=== PATIENT | female | born 1985 | race Caucasian/White ===

== ENCOUNTER 2019-02-04 11:27 | Inpatient (IN) | payer MEDICAID ==
[~2019-02-04] VITALS: Ht 162.6 cm; Wt 75.0 kg
[2019-02-04] VITALS (25 sets, daily range): BP systolic 67–127; BP diastolic 48–101; PULSE 94–144; RESP 20–26; Ht 162.6 cm; Wt 75.0 kg
[~2019-02-04 11:27] MED LIST: DENIES MEDS
[2019-02-04] MEDS ORDERED: CEFTRIAXONE 1 GM/50 ML (PMX) 50 ML IVPB STA (11:40)
[2019-02-04] MEDS ORDERED: SOD CHLORIDE 0.9% 1,000 ML IV STA ×2 (11:40)
[2019-02-04] MEDS ORDERED: NORepinephrine 8MG/250 ML (PMX 250 ML ONE (11:41)
[2019-02-04] MEDS: NORepinephrine 8MG/250 ML (PMX 250 ML IV SCH ×2 (11:50→18:04)
[2019-02-04] MEDS ORDERED: METH-480 PO (12:08)
--- NOTE | 2019-02-04 13:23 | ERD ---
ER Documentation Chief Complaint Chief Complaint Rosc after 1 amp of epi HPI This is a 33-year-old woman brought in by EMS from home for cardiac arrest, initial rhythm at the scene was pulseless electrical activity. EMS administered epinephrine and chest compressions at the scene and in route and she eventually gained pulses, a Alex airway was placed to help with breathing. Patient was taking a nap in bed with her sister for about 1 hour, her sister rolled over and saw the patient seizing and frothing at the mouth. Patient does not have a history of seizure disorder. Patient's sister who was later at the bedside states for the last 3 days she has been complaining of a posterior headache which was constant lasting all day and it gradually became worse over the last 3 days, she required 3 doses of [id number] Tylenol last night and 2 doses this morning to help with her headache. Patient has no history of cerebral aneurysm, seizures, or migraines. Patient had no complaints of chest pain or shortness of breath, has had no recent vomiting or diarrhea, no loss of bowel or bladder contents. ROS All systems reviewed and are negative except as per history of present illness. Medications Home Meds Reported Medications Methyldopa* (Aldomet*) 500 Mg Tab, 500 MG PO TID, #90 TAB 02/04/19 Discontinued Reported Medications [Denies Meds] No Conflict Check 07/05/10 Allergies Allergies: Coded Allergies: No Known Allergy (Verified , 02/04/19) PMhx/Soc History of Surgery: Yes (1X C SECTION from previous visit) Anesthesia Reaction: No Hx Neurological Disorder: No Hx Respiratory Disorders: No Hx Cardiac Disorders: No Hx Psychiatric Problems: No Hx Miscellaneous Medical Probl: No Hx Alcohol Use: No (unknown) Hx Substance Use: No (unknown) Hx Tobacco Use: No (unknown) Smoking Status: Unknown if ever smoked FmHx Family History: No diabetes Physical Exam Vitals Vital Signs Date Temp Pulse Resp B/P (MAP) Pulse Ox O2 O2 Flow FiO2 Time Delivery Rate 02/04/19 123 23 100 100 12:51 02/04/19 90 16 99 100 11:44 Physical Exam Const: Unresponsive, well-developed well-nourished, nonverbal, afebrile HEENT: Normocephalic atraumatic, no goiter, pink conjunctiva, no cervical spine deformity Resp: Clear to auscultation bilaterally Cardio: Tachycardic and regular Abd: Soft, non tender, non distended. No masses palpated, no rigidity Skin: No petechiae or rashes. No skin ulcers, no lacerations, no hematomas Back: No midline or flank tenderness Ext: No cyanosis, or edema. Calves are symmetrical Neur: Patient is unresponsive and nonverbal, right pupil measures 6 mm and unreactive, left pupil 4 mm and unreactive. Psych: Unable to assess Result Diagram: 02/04/19 1137 02/04/19 1137 Results 24 hrs Laboratory Tests Test 02/04/19 11:37 02/04/19 11:39 02/04/19 11:40 02/04/19 11:42 White Blood 15.9 10^3/ul Count Red Blood Count 5.23 10^6/ul Hemoglobin 15.4 g/dl Hematocrit 50.1 % Mean Corpuscular 95.8 fl Volume Mean Corpuscular 29.4 pg Hemoglobin Mean Corpuscular 30.7 g/dl Hemoglobin Linda nt Red Cell 13.4 % Distribution Width Platelet Count 274 10^3/UL Mean Platelet 11.3 fl Volume Immature 9.500 % Granulocytes % Neutrophils % % Lymphocytes % % Monocytes % % Eosinophils % % Basophils % % Nucleated Red 0.1 /100WBC Blood Cells % Immature 1.500 10^3/ul Granulocytes # Neutrophils # 10^3/ul Lymphocytes # 10^3/ul Monocytes # 10^3/ul Eosinophils # 10^3/ul Basophils # 10^3/ul Nucleated Red 10^3/ul Blood Cells # Prothrombin Time 17.3 Sec Prothrombin Time 1.4 Ratio INR 1.40 International Normalized Ratio Activated 50.7 Sec Partial Thrombop last Time Sodium Level 136 mmol/L Potassium Level 2.8 mmol/L Chloride Level 99 mmol/L Carbon Dioxide 16 mmol/L Level Anion Gap 21 Blood Urea 10 mg/dl Nitrogen Creatinine 0.87 mg/dl Est Glomerular > 60 mL/min Filtrat Rate mL/min Glucose Level 443 mg/dl Calcium Level 11.2 mg/dl Total Bilirubin 0.3 mg/dl Direct Bilirubin 0.00 mg/dl Indirect 0.3 mg/dl Bilirubin Aspartate Amino 136 IU/L Transf (AST/SGOT ) Alanine 98 IU/L Aminotransferase (ALT/SGPT) Alkaline 67 IU/L Phosphatase Troponin I 0.207 ng/ml Total Protein 5.7 g/dl Albumin 3.1 g/dl Globulin 2.60 g/dl Albumin/Globulin 1.19 Ratio Lipase 214 U/L Bedside Glucose 416 mg/dL Blood Gas Blood arterial Specimen Source Arterial Blood 02/04/2019 12:15 Date Drawn :01 PM Arterial Blood 6.989 pH (Temp corrected) Arterial Blood 67.8 mmhg pCO2 (Temp correct) Arterial Blood 72.1 mmHG pO2 (Temp corrected) Arterial Blood 15.9 mmol/L HCO3 Arterial Blood -16.6 mmol/L Base Excess Arterial Blood 86.9 mmHG Oxygen Saturatio n Cristino Test ACCEPTAB Arterial Blood Left Radial Gas Puncture Site Arterial 0.3 % Blood Carboxyhem oglobin Arterial Blood 0.3 % Methemoglobin Blood Gas A-a O2 573.1 mmHg Differential Oxyhemoglobin 86.4 % Percent Blood Gas 37.0 C Temperature Blood Gas 16.0 Respiration Rate Blood Gas Actual 16 Respiration Rate Blood Gas VENT - AC Modality FiO2 100.0 % Blood Gas Tidal 500.0 mL Volume Blood Gas High 5.0 cmH2O PEEP Setting Blood Gas D BRIANNA WILKES Critical Value Read Back Blood Gas T [facility] Notified Whom Blood Gas 02/04/2019 12:22 Notified Time :46 PM POC Venous 10.0 mmol/L Lactate Test 02/04/19 12:13 02/04/19 12:21 Urine Color YELLOW Urine Clarity SLIGHTLY CLOUDY Urine pH 6.0 Urine Specific 1.015 [place] Urine Ketones NEGATIVE mg/dL Urine Nitrite NEGATIVE mg/dL Urine Bilirubin NEGATIVE mg/dL Urine NEGATIVE mg/dL Urobilinogen Urine Leukocyte NEGATIVE Brayan/ul Esterase Urine 2 /HPF Microscopic RBC Urine 3 /HPF Microscopic WBC Urine Squamous FEW /HPF Epithelial Cells Urine Mucus FEW /HPF Urine Hemoglobin NEGATIVE mg/dL Urine Glucose NEGATIVE mg/dL Urine Total 2+ mg/dl Protein POC Beta HCG, NEGATIVE Qualitative Current Medications Medications Dose Sig/Coleen Start Time Status Last (Trade) Ordered Route PRN Stop Time Admin Dose Reason Admin Sodium 1,000 ml @ Q30M STAT 02/04/19 DC 02/04/19 Chloride 2,000 mls/hr IV 11:40 11:50 02/04/19 12:09 250 ml @ TITRATE IV 02/04/19 02/04/19 Norepinephrin 1.875 mls/ 12:00 11:50 e hr Sodium 1,000 ml @ Q1H STAT 02/04/19 DC 02/04/19 Chloride 1,000 mls/hr IV 11:40 11:49 02/04/19 12:39 Ceftriaxone 50 ml @ ONCE STAT 02/04/19 DC 02/04/19 Sodium 100 mls/hr IVPB 11:40 12:20 02/04/19 12:09 Potassium 100 ml @ Q2H IVPB 02/04/19 Chloride 50 mls/hr 13:00 02/04/19 16:59 Procedures/MDM IV line was established patient was placed on building architectural designer rhythm strip revealed a narrow complex tachycardia 160 bpm with upright P and T waves. Patient was afebrile, blood sugar high. Patient was unresponsive and had return of spontaneous circulation en route. Endotracheal Intubation by me: Pre assessment performed. Pre-oxygenation performed with 100% oxygen RSI: Performed w/o complication or hypoxic events. No medications required for intubation Blade: 4.0 ET Tube: 7.5 cm Depth: 23 cm at the lip Intubation confirmed by colorimetric CO2, equal breath sounds, quiet over the stomach. Chest X-ray 1V Interpreted by me: 3 cm above the katya ET tube. Normal soft tissue, No pneumothorax. Congestion bilaterally. Patient did have momentary loss of pulses in the emergency department and high- quality chest compressions were started, she was given a dose of epinephrine IV, Narcan 2 mg IV, calcium 1 g IV. Patient had return of spontaneous circulation with strong pulses after 1 round of resuscitation. I ordered 3 L normal saline IV EKG performed, read by me revealed a supraventricular tachycardia, right axis, intraventricular conduction delay QRS duration 116 ms, prolonged QT of 561 ms, no concerning ST elevations or depressions noted Central Line Placement by me: After the patient was consented and a time out was performed, appropriate hand hygiene was performed, the skin site was fully prepped and maximal sterile barrier technique was employed where the patient was sterilely draped, and the provider wore a mask and sterile gown and gloves. Anesthesia: 1% lidocaine locally Location: Right femoral Device: Multiple lumen Technique: Seldinger technique. Secured with suture. Results: Venous return from all ports with easy saline flush. No complications. The entire guide wire retrieved and disposed of. I ordered Levophed drip to keep systolic blood pressure over 90 mmHg. Critical Care: Time: 49 minutes, this was time separate from other billable procedures. Treatments/Evaluations: Close monitoring and treatment of unstable vital signs, cardiorespiratory, and neurologic status, while maintaining tight balance of fluid, respiratory, and cardiac interventions. CT scan of the brain was performed,IMPRESSION: 1. Diffuse subarachnoid hemorrhage as described above concerning for aneurysm rupture. Recommend CT angiogram head and neck for further evaluation 2. Diffuse cerebral and cerebellar edema with effacement of the sulci. 3. No evidence for herniation or hydrocephalous at this time I ordered CTA of the cerebrum and neck I spoke to neurosurgeon on-call Dr. Shah regarding the patient's presentation, symptomatology, and CT scan findings. He agreed to consult the patient but at this time no indication for transfer for higher level of care. CBC reveals a leukocytosis of 16, electrolytes reveal hypokalemia 2.8 and elevated blood sugar, bicarb 16 consistent with metabolic acidosis given her cardiac arrest. Liver function tests were unremarkable, troponin elevated at 0.2, test negative, urinalysis negative for infection. I administered IV potassium supplementation for hypokalemia Departure Diagnosis: Primary Impression: Cardiac arrest Additional Impressions: Acute spontaneous subarachnoid intracranial hemorrhage Acute hypokalemia Elevated troponin Signs of return of spontaneous circulation Condition: Critical ALL REED MD Feb 04, 2019 13:12
[2019-02-04] MEDS ORDERED: SOD CHLORIDE 0.9% 100 ML ONE (13:28)
[2019-02-04] MEDS ORDERED: IOHEXOL 100 ML ONE (13:28)
[2019-02-04] MEDS: POTASSIUM CHLORIDE 100 ML IVPB SCH ×2 (13:31→16:07)
[2019-02-04] MEDS ORDERED: LEVETIRACETAM 1000 MG (PMX) 100 ML IVPB ONE (14:30)
--- NOTE | 2019-02-04 14:42 | HP ---
Date/Time of Note Date/Time of Note DATE: 02/04/19 TIME: 14:30 Assessment/Plan VTE Prophylaxis SCD applied (from Nsg): Yes Pharmacological prophylaxis: NA/contraindicated Pharm contraindication: hemorrhagic infarct Lines/Catheters IV Catheter Type (from Nrsg): Saline Lock Assessment/Plan Hospital Course 33-year-old female with a prior history of headaches for the last 3 days in the occipital region per report who was brought in after being found unresponsive at home, also with seizure and frothing at the mouth currently managed as follows: 1. Acute encephalopathy likely secondary to #2 acute 2. Acute diffuse subarachnoid hemorrhage concerning for aneurysm rupture 3. Acute respiratory failure secondary to the above, now ventilator dependent 4. Status post cardiac arrest with ROSC 5. Elevated troponins rule out NSTEMI likely secondary to cardiac compressions 6. Systemic inflammatory response syndrome with severe lactic acidosis secondary to the above 7. Hyperglycemia rule out underlying diabetes mellitus 8. Hypokalemia 9. Systemic shock likely related to cardiac arrest currently on pressor support 10. New-onset seizure activity x1 11. Chronic hypertension, currently in shock Plan: Patient is to be admitted to the intensive care unit for close monitoring and management Targeted hypothermia is contraindicated in patients with active bleeding Neurosurgical consultation has been obtained by the emergency room doctor await recommendations Clinically, patient is unresponsive with concern for possible neurologic brain , however we will continue to see how she does We will get cardiology, pulmonology as well as neurology consultations Empiric Keppra therapy Continue pressor support, send blood cultures, gentle fluid hydration with isotonic solution Replete electrolytes Trend lactic acid levels Further interventions per clinical course Overall prognosis grim Result Diagram: 02/04/19 1137 02/04/19 1137 Results 24hrs Laboratory Tests Test 02/04/19 11:37 02/04/19 11:39 02/04/19 11:40 02/04/19 11:42 White Blood 15.9 H Count Red Blood Count 5.23 Hemoglobin 15.4 Hematocrit 50.1 H Mean Corpuscular 95.8 Volume Mean Corpuscular 29.4 Hemoglobin Mean Corpuscular 30.7 L Hemoglobin Linda nt Red Cell 13.4 Distribution Width Platelet Count 274 Mean Platelet 11.3 H Volume Immature 9.500 H Granulocytes % Neutrophils % Segmented 50 Neutrophils % (Manual) Band Neutrophils 15 H % (Manual) Lymphocytes % Lymphocytes % 28 (Manual) Reactive 2 H Lymphocytes % (Manual) Monocytes % Monocytes % 3 (Manual) Eosinophils % Eosinophils % 1 (Manual) Basophils % Metamyelocytes % 1 H (manual) Nucleated Red 0.1 H Blood Cells % Immature 1.500 H Granulocytes # Neutrophils # Neutrophils # 8.3 H (Manual) Band Neutrophils 2.3 H # Lymphocytes 4.4 H (Manual) Lymphocytes # Reactive 0.3 H Lymphocytes # Monocytes # Monocytes # 0.4 (Manual) Eosinophils # Basophils # Metamyelocytes # 0.1 H Nucleated Red Blood Cells # Platelet NORMAL Estimate Anisocytosis 1+ Microcytosis 1+ Prothrombin Time 17.3 H Prothrombin Time 1.4 Ratio INR 1.40 International Normalized Ratio Activated 50.7 H Partial Thrombop last Time Sodium Level 136 Potassium Level 2.8 *L Chloride Level 99 Carbon Dioxide 16 L Level Anion Gap 21 H Blood Urea 10 Nitrogen Creatinine 0.87 Est Glomerular > 60 Filtrat Rate mL/min Glucose Level 443 *H Calcium Level 11.2 H Total Bilirubin 0.3 Direct Bilirubin 0.00 Indirect 0.3 Bilirubin Aspartate Amino 136 H Transf (AST/SGOT ) Alanine 98 H Aminotransferase (ALT/SGPT) Alkaline 67 Phosphatase Troponin I 0.207 *H Total Protein 5.7 L Albumin 3.1 L Globulin 2.60 Albumin/Globulin 1.19 Ratio Lipase 214 Bedside Glucose 416 *H Blood Gas Blood arterial Specimen Source Arterial Blood 02/04/2019 12:15 Date Drawn :01 PM Arterial Blood 6.989 *L pH (Temp corrected) Arterial Blood 67.8 H pCO2 (Temp correct) Arterial Blood 72.1 L pO2 (Temp corrected) Arterial Blood 15.9 L HCO3 Arterial Blood -16.6 L Base Excess Arterial Blood 86.9 L Oxygen Saturatio n Cristino Test ACCEPTAB Arterial Blood Left Radial Gas Puncture Site Arterial 0.3 Blood Carboxyhem oglobin Arterial Blood 0.3 Methemoglobin Blood Gas A-a O2 573.1 H Differential Oxyhemoglobin 86.4 L Percent Blood Gas 37.0 Temperature Blood Gas 16.0 Respiration Rate Blood Gas Actual 16 Respiration Rate Blood Gas VENT - AC Modality FiO2 100.0 Blood Gas Tidal 500.0 Volume Blood Gas High 5.0 PEEP Setting Blood Gas D BRIANNA WILKES Critical Value Read Back Blood Gas T [facility] Notified Whom Blood Gas 02/04/2019 12:22 Notified Time :46 PM POC Venous 10.0 *H Lactate Test 02/04/19 12:13 02/04/19 12:21 Urine Color YELLOW Urine Clarity SLIGHTLY CLOUDY A Urine pH 6.0 Urine Specific 1.015 [place] Urine Ketones NEGATIVE Urine Nitrite NEGATIVE Urine Bilirubin NEGATIVE Urine NEGATIVE Urobilinogen Urine Leukocyte NEGATIVE Esterase Urine 2 Microscopic RBC Urine 3 Microscopic WBC Urine Squamous FEW Epithelial Cells Urine Mucus FEW A Urine Hemoglobin NEGATIVE Urine Glucose NEGATIVE Urine Total 2+ H Protein POC Beta HCG, NEGATIVE Qualitative HPI/ROS Admit Date/Time Admit Date/Time Hx of Present Illness 33-year-old female who has been complaining of headaches for the last 3 days who went to sleep earlier today by her family and was found to have new onset seizures. EMS was called on by the time EMS arrived to the home, patient was unresponsive with PEA. She was resuscitated via ACLS with return of spontaneous circulation. Airway was placed at the scene by EMS for patient May being endotracheally intubated in the intensive in the emergency room. Patient is also requiring pressor support at this time. A CT scan of the brain is showing subarachnoid hemorrhage. Patient does not have a history of substance use as far as the family knows but she does have a history of alcohol use occasionally. Hyperglycemia is also noted with there is no history of diabetes mellitus. Patient does have 3 small children at home. She does have a history of high blood pressure she does have a history of high blood pressure ROS Subjective hx not possible: pt critical status PMH/Family/Social Past Medical History HTN Medications Current Medications Norepinephrine 250 ml @ 1.875 mls/ hr TITRATE IV Last administered on 02/04/19at 11:50; Admin Dose 56.25 MLS/HR; Start 02/04/19 at 12:00 Potassium Chloride 100 ml @ 50 mls/hr Q2H IVPB Last administered on 02/04/19at 13:31; Admin Dose 50 MLS/HR; Start 02/04/19 at 13:00; Stop 02/04/19 at 16:59 Coded Allergies: No Known Allergy (Verified , 02/04/19) Past Surgical History Past Surgical Hx: other (c section) Family History Significant Family History: no pertinent family hx Social History Alcohol Use: occasionally Smoking Status: Unknown if ever smoked Drug Use: other (unk) Exam/Review of Systems Vital Signs Vitals Vital Signs Date Temp Pulse Resp B/P (MAP) Pulse Ox O2 O2 Flow FiO2 Time Delivery Rate 02/04/19 96.4 132 20 114/79 89 Mechanical 14:06 (91) Ventilator 02/04/19 100 12:51 Exam Constitutional: well developed; No alert, No oriented Psych: other (unable to assess) Head: normocephalic, atraumatic Eyes: nl conjunctiva, nl lids, nl sclera; No PERRL, No icteric ENMT: intubated Respiratory: diminished breath sounds, other; No wheezing (comfortable on vent ) Gastrointestinal: soft, bowel sounds, distended (mildly) Genitourinary - Female: nl external genitalia Extremities: No edema Neurological: unresponsive; No nl mental status, No nl speech Skin: No rash or lesions Additional Comments PROCEDURE: CT Brain without contrast. CLINICAL INDICATION: Acute mental status changes TECHNIQUE: A CT of the brain was performed on a [employer] CT scanner utilizing axial imaging from the skull base through the vertex without IV contrast. Multiplanar reformatted images were made. Images were reviewed on a PACS workstation. The CTDIvol is 50.97 mGy and the DLP is 821 mGycm. DICOM images are available. One of the following 3 dose reduction techniques were used during this CT examination: 1) Automated exposure control 2) Adjustment of the mA +/- kV according to patient size or 3) Use of iterative reconstruction technique COMPARISON: No relevant prior FINDINGS: Diffuse subarachnoid hemorrhage is noted surrounding the medulla, brainstem, quadrigeminal plate cisterns, suprasellar cistern as well as with in the lateral, third and fourth ventricles. This is concerning for ruptured aneurysm or dissection. Further imaging with CT angiogram of the head neck is recommended. Mild bilateral cerebral and cerebellar edema is noted with loss of sulci. No evidence for midline shift or herniation is present. No evidence for hydrocephalus is present. Decreased alegria-white matter distinction is noted in the bilateral insula and recommend continued follow-up. The visualized scalp and calvarium are normal. The bilateral orbits are normal. The bilateral paranasal sinuses demonstrate acute sphenoid sinus air fluid levels. The bilateral mastoid air cells and middle ear cavities are clear. IMPRESSION: 1. Diffuse subarachnoid hemorrhage as described above concerning for aneurysm rupture. Recommend CT angiogram head and neck for further evaluation 2. Diffuse cerebral and cerebellar edema with effacement of the sulci. 3. No evidence for herniation or hydrocephalous at this time Critical finding A call report was made to Rod Simons at 02/04/2019 12:46:48 PM following t he completion of the examination by the undersigned. GUERO WILLOUGHBY Feb 04, 2019 14:41
[2019-02-04] MEDS ORDERED: GLUCAGON 1 MG INJ IM PRN (15:00)
[2019-02-04] MEDS ORDERED: GLUCOSE GEL 15 GRAM TUBE BUCCAL PRN (15:00)
[2019-02-04] MEDS ORDERED: GLUCOSE GEL 15 GRAM TUBE PO PRN ×2 (15:00)
[2019-02-04] MEDS ORDERED: DEXTROSE 50% 50 ML SYRINGE IV PRN ×2 (15:00)
[2019-02-04] MEDS: SOD CHLORIDE 0.9% 1,000 ML IV SCH (16:02)
--- NOTE | 2019-02-04 16:47 | RADRPT ---
Echocardiogram Report Patient Name: Gino GARCIAnt ID: [id number] : [id number] (33y 6m)Study Date: 02/04/2019 3:17:16 PM Gender: FAccession #: [id number] Tech: [place] Location: Ref.Physician: GUERO WILLOUGHBY Height(Cm): BSA: Weight(Kg): Quality: GoodAccount #: Procedures: Echocardiographic Report: Transthoracic echocardiogram with complete 2D, M-Mode, and doppler examination. Indications: Cardiac Arrest. Measurements: 2D/M Mode Doppler Measurement Value Normal Range Measurement Value Normal Range LVIDd 2D 3.7 [ 3.8 - 5.2 ] cm AV Peak Hugo 0.9 [ 100.0 - 170.0 ] cm/sec LVIDs 2D 2.9 [ 2.2 - 3.5 ] cm AV Peak PG 3.0 [ 2.0 - 9.0 ] mmHg LVPWd 2D 1.1 [ 0.6 - 0.9 ] cm LVOT Peak Hugo 0.7 [ 70.0 - 110.0 ] cm/sec IVSd 2D 1.1 [ 0.6 - 0.9 ] cm LVOT Peak PG 2.0 [ 2.0 - 6.0 ] mmHg AoR Diam 2D 2.7 [ 2.3 - 3.1 ] cm TR Peak Hugo 2.8 [ 100.0 - 280.0 ] cm/sec EDV 2D 57.0 [ 46.0 - 106.0 ] ml TR Peak PG 31.0 mmHg ESV 2D 31.4 [ 14.0 - 42.0 ] ml RVSP 41.0 [ 10.0 - 36.0 ] mmHg EF 2D 44.9 [ 54.0 - 74.0 ] percent RA Pressure 10.0 mmHg LA Dimen 2D 2.4 [ 2.7 - 3.8 ] cm Findings: Left Ventricle: Normal left ventricular systolic function. Normal left ventricular cavity size. Mild concentric left ventricular hypertrophy. Severe global left ventricular systolic dysfunction. Ejection fraction is visually estimated at 30-35 %. Abnormal Diastolic Function. These segments of the LV are hypokinetic mid anterior segment, apical anterior segment, inferolateral mid segment, apical lateral segment, anterolateral mid segment, inferior mid segment, inferior apex segment, inferoseptum mid segment, anteroseptum mid segment and apical septum. Right Ventricle: Normal right ventricular size. Normal right ventricular systolic function. Left Atrium: The left atrium is normal in size. Right Atrium: The right atrium is normal in size. Mitral Valve: Normal appearance and function of the mitral valve with trace physiologic regurgitation. Aortic Valve: Normal appearance of the aortic valve. No significant aortic stenosis or insufficiency. Tricuspid Valve: Normal appearance of the tricuspid valve. Estimated peak PA systolic pressure 41 mmHg. There is trace tricuspid regurgitation. Pulmonic Valve: Normal pulmonic valve appearance. Pericardium: Normal pericardium with no significant pericardial effusion. Aorta: Normal aortic root. IVC: Normal size and normal respiratory collapse consistent with normal right atrial pressure. Normal IVC with respiratory collapse, however patient on ventilator. Conclusions: Normal left ventricular systolic function. Normal left ventricular cavity size. Mild concentric left ventricular hypertrophy. Severe global left ventricular systolic dysfunction. Ejection fraction is visually estimated at 30-35 %. Abnormal Diastolic Function. These segments of the LV are hypokinetic mid anterior segment, apical anterior segment, inferolateral mid segment, apical lateral segment, anterolateral mid segment, inferior mid segment, inferior apex segment, inferoseptum mid segment, anteroseptum mid segment and apical septum. The left atrium is normal in size. Normal appearance and function of the mitral valve with trace physiologic regurgitation. Normal appearance of the aortic valve. No significant aortic stenosis or insufficiency. Normal appearance of the tricuspid valve. Estimated peak PA systolic pressure 41 mmHg. There is trace tricuspid regurgitation. Electronically Signed By: Cy Juarez 2019-02-04 16:46:39 PDT
[2019-02-04] MEDS ORDERED: INSULIN ASPART [NOVOLOG] 3 ML PEN SC SCH (17:00)
--- NOTE | 2019-02-04 17:11 | EN ---
Date/Time of Note Date/Time of Note DATE: 02/04/19 TIME: 17:10 Event Note Medicine Medicine Event Note reviewed case with pulm, nsg and neurology: ok to use Th. benefits outweigh risks at this time. will order GUERO WILLOUGHBY Feb 04, 2019 17:11
[2019-02-04] MEDS ORDERED: ACETAMINOPHEN 650 MG SUPP PR PRN (17:30)
[2019-02-04] MEDS ORDERED: ACETAMINOPHEN 650MG/20.3ML CUP PO PRN (17:30)
[2019-02-04] MEDS ORDERED: MEPERIDINE 25 MG INJ IV PRN ×2 (17:30)
[2019-02-04] MEDS ORDERED: INSULIN HUMAN REGULAR 100 UNIT in SOD CHLORIDE 0.9% 99 ML IV SCH (18:00)
[2019-02-04] MEDS: ACCU-CHEK XX SCH ×7 (18:05→23:30)
[2019-02-04] MEDS: OCULAR LUBRICANT 3.5 GM OPH OINT BOTH EYES SCH (18:53)
[2019-02-04] MEDS: ARTIFICIAL TEARS 15 ML OPH BOTH EYES SCH (18:53)
[2019-02-04] MEDS ORDERED: CA CHLORIDE 10% 10 ML SYRINGE ONE (20:00)
[2019-02-04] MEDS ORDERED: EPINEPHrine 0.1 MG/ML SYG ONE (20:00)
[2019-02-04] MEDS ORDERED: PHENYLephrine 20MG IN 250 ML 250 ML IV SCH (20:30)
[2019-02-04] MEDS ORDERED: LEVETIRACETAM IV 500 MG in SOD CHLORIDE 0.9% 100 ML IV SCH (21:00)
[2019-02-04] MEDS: MIDAZOLAM (DRIP) 50 mg/50 mL 50 ML IV SCH (23:22)
[2019-02-05] VITALS (96 sets, daily range): BP systolic 78–173; BP diastolic 50–140; PULSE 80–147; RESP 18–26
[2019-02-05] MEDS: FENTAnyl (DRIP) 1000 mcg/100mL 100 ML IV SCH ×2 (00:05→16:28)
[2019-02-05] MEDS: ACCU-CHEK XX SCH ×7 (01:00→21:00)
[2019-02-05] MEDS: ARTIFICIAL TEARS 15 ML OPH BOTH EYES SCH ×5 (01:00→23:35)
[2019-02-05] MEDS ORDERED: ACCU-CHEK XX SCH (02:00)
[2019-02-05] MEDS: SOD CHLORIDE 0.9% 1,000 ML IV SCH (03:07)
[2019-02-05] MEDS: PHENYLephrine 40 MG in DEXTROSE 5% 246 ML IV SCH ×4 (03:13→23:54)
[2019-02-05] MEDS: OCULAR LUBRICANT 3.5 GM OPH OINT BOTH EYES SCH ×5 (03:14→23:38)
[2019-02-05] MEDS ORDERED: FAMOTIDINE 20 MG INJ IV ONE (08:00)
[2019-02-05] MEDS: LEVETIRACETAM 500 MG (PMX) 100 ML IVPB SCH ×2 (08:43→20:44)
--- NOTE | 2019-02-05 09:29 | CONS ---
Assessment/Plan Assessment/Plan Assessment/Plan (Daily) Chest x-ray was reviewed from yesterday which is showing bilateral infiltrates suggestive of pulmonary edema versus bilateral pneumonia. Ventilator setting; AC of 26, tidal volume 550, PEEP of 5, 70% FiO2. Patient is currently on phenylephrine drip at 130 mics per minute, fentanyl 50 mics per hour, Levophed 5 mics per minute, Versed 5 mg/h. Assessment and recommendations; 1. Patient admitted with cardiac arrest status post CPR currently on hypothermia protocol with subarachnoid as well as intraventricular hemorrhage. Likely hypertensive in etiology. 2. Bilateral pneumonia with significant leukocytosis. 3. Metabolic acidosis. Related to hypoperfusion. 4. New onset seizure activity due to intracranial bleed. Continue current supportive care. Wean down FiO2. Add sodium bicarbonate drip. Discontinue Rocephin and switch to Zosyn 3.375 g every 8 hours. Obtain follow- up chest x-ray. Monitor for any overt seizure activity. Maintain mild hypernatremia as well as mild hyperventilation. Prognosis is guarded. 40 minutes of critical care time was spent evaluating patient. Consultation Date/Type/Reason Admit Date/Time Date of Consultation: Feb 05, 2019 Type of Consult Pulmonary/critical care Patient is a 33-year-old lady who was brought into the hospital after sustaining a cardiac arrest event. Further work-up revealed extensive subarachnoid hemorrhage as well as intraventricular hemorrhage. Patient currently is orally intubated and is on hypothermia protocol. Patient also exhibited new seizure activity and is currently on Keppra without any further episodes noted. Past medical history; 1. History of hypertension. Medications; reviewed. Allergies; none. Social history, family history, occupational history is not available. Review of systems; unable to be obtained. General exam; young woman, orally intubated, on hypothermia protocol. Sedated. Date/Time of Note DATE: 02/05/19 TIME: 09:25 Past Medical History Home Meds Reported Medications Methyldopa* (Aldomet*) 500 Mg Tab, 500 MG PO TID, #90 TAB 02/04/19 Discontinued Reported Medications [Denies Meds] No Conflict Check 07/05/10 Medications Current Medications Norepinephrine 250 ml @ 1.875 mls/ hr TITRATE IV Last administered on 02/04/19at 18:04; Admin Dose 37.5 MLS/HR; Start 02/04/19 at 12:00 Miscellaneous Information 1 ea NOTE XX ; Start 02/04/19 at 15:00 Glucose (Glutose) 15 gm Q15M PRN PO DECREASED GLUCOSE; Start 02/04/19 at 15:00 Glucose (Glutose) 22.5 gm Q15M PRN PO DECREASED GLUCOSE; Start 02/04/19 at 15:00 Dextrose (D50w Syringe) 25 ml Q15M PRN IV DECREASED GLUCOSE; Start 02/04/19 at 15:00 Dextrose (D50w Syringe) 50 ml Q15M PRN IV DECREASED GLUCOSE; Start 02/04/19 at 15:00 Glucagon (Glucagen) 1 mg Q15M PRN IM DECREASED GLUCOSE; Start 02/04/19 at 15:00 Glucose (Glutose) 15 gm Q15M PRN BUCCAL DECREASED GLUCOSE; Start 02/04/19 at 15:00 Acetaminophen (Tylenol Supp) 650 mg Q4H PRN [place] TEMP > 37C; Start 02/04/19 at 17:30 Acetaminophen (Tylenol Liquid) 650 mg Q4H PRN PO TEMP > 37C; Start 02/04/19 at 17:30 Acetaminophen (Tylenol Supp) 500 mg Q6H [place] ; Start 02/05/19 at 17:30 Acetaminophen (Tylenol Liquid) 500 mg Q6H PO ; Start 02/05/19 at 17:30 Meperidine HCl (Demerol) 12.5 mg Q4H PRN IV POST OPERATIVE SHIVERING; Start 02/04/19 at 17:30 Meperidine HCl (Demerol) 25 mg Q4H PRN IV POST OPERATIVE SHIVERING; Start 02/04/19 at 17:30 Eye Lubricant (Akwa Oint) 1 applic Q6 BOTH EYES Last administered on 02/05/19at 06:23; Admin Dose 1 APPLIC; Start 02/04/19 at 18:00 Eye Lubricant (Artificial Tears Oph) 2 drop Q6 BOTH EYES Last administered on 02/05/19at 06:23; Admin Dose 2 DROP; Start 02/04/19 at 18:00 Midazolam HCl 50 ml @ 1 mls/hr TITRATE IV Last administered on 02/04/19at 23:22; Admin Dose 2 MLS/HR; Start 02/04/19 at 22:30 Fentanyl 100 ml @ 2.5 mls/hr TITRATE IV Last administered on 02/05/19at 00:05; Admin Dose 2.5 MLS/HR; Start 02/04/19 at 22:30 Diagnostic Test (Pha) (Accu-Chek) 1 ea Q4 XX Last administered on 02/05/19at 08:22; Admin Dose 1 EA; Start 02/05/19 at 00:00 Phenylephrine HCl 40 mg/Dextrose 250 ml @ 37.5 mls/hr TITRATE IV Last administered on 02/05/19at 03:13; Admin Dose 33.75 MLS/HR; Start 02/05/19 at 00:30 Levetiracetam 100 ml @ 400 mls/hr Q12 IVPB Last administered on 02/05/19 08:43; Admin Dose 400 MLS/HR; Start 02/05/19 at 09:00 Dextrose/Sodium Chloride 1,000 ml @ 80 mls/hr [id number] IV ; Start 02/05/19 at 09:30; Status UNV Allergies: Coded Allergies: No Known Allergy (Verified , 02/04/19) Past Surgical History Past Surgical Hx: other (c section) Social History Alcohol Use: occasionally Smoking Status: Never smoker Drug Use: other (unk) Exam/Review of Systems Exam Vitals Vital Signs Date Temp Pulse Resp B/P (MAP) Pulse Ox O2 O2 Flow FiO2 Time Delivery Rate 02/05/19 85 26 110/90 100 09:15 (97) 02/05/19 96.4 09:00 02/05/19 70 08:00 02/04/19 Mechanical 20:15 Ventilator Intake and Output 02/04/19 02/04/19 02/05/19 1515:00 23:00 07:00 IntakeIntake Total 37.5 ml 735.61 ml 1291.375 ml OutputOutput Total 338 ml 2036 ml BalanceBalance 37.5 ml 397.61 ml -744.625 ml Exam HEENT exam; supple neck, no JVD. No lymphadenopathy. Midline trachea. No thy romegaly. Pupils are dilated and nonreactive to light. Patient has fair dentition. Chest exam; diminished breath sounds bilaterally. S1-S2 audible, no murmurs. Regular rhythm. Abdomen exam; soft, no organomegaly. Bowel sounds are sluggish. Extremity exam; no peripheral edema clubbing. [employer] exam; patient is sedated. Results Result Diagram: 02/05/19 0516 02/05/19 0516 Results 24hrs Laboratory Tests Test 02/04/19 11:37 02/04/19 11:39 02/04/19 11:40 02/04/19 11:42 White Blood 15.9 H Count Red Blood Count 5.23 Hemoglobin 15.4 Hematocrit 50.1 H Mean 95.8 Corpuscular Volume Mean 29.4 Corpuscular Hemoglobin Mean 30.7 L Corpuscular Hemoglobin Conc ent Red Cell 13.4 Distribution Width Platelet Count 274 Mean Platelet 11.3 H Volume Immature 9.500 H Granulocytes % Neutrophils % Segmented 50 Neutrophils % (Manual) Band 15 H Neutrophils % (Manual) Lymphocytes % Lymphocytes % 28 (Manual) Reactive 2 H Lymphocytes % (Manual) Monocytes % Monocytes % 3 (Manual) Eosinophils % Eosinophils % 1 (Manual) Basophils % Metamyelocytes 1 H % (manual) Nucleated Red 0.1 H Blood Cells % Immature 1.500 H Granulocytes # Neutrophils # Neutrophils # 8.3 H (Manual) Band 2.3 H Neutrophils # Lymphocytes 4.4 H (Manual) Lymphocytes # Reactive 0.3 H Lymphocytes # Monocytes # Monocytes # 0.4 (Manual) Eosinophils # Basophils # Metamyelocytes 0.1 H # Nucleated Red Blood Cells # Platelet NORMAL Estimate Anisocytosis 1+ Microcytosis 1+ Prothrombin 17.3 H Time Prothrombin 1.4 Time Ratio INR 1.40 International Normalized Rati o Activated 50.7 H Partial Thrombo plast Time Sodium Level 136 Potassium Level 2.8 *L Chloride Level 99 Carbon Dioxide 16 L Level Anion Gap 21 H Blood Urea 10 Nitrogen Creatinine 0.87 Est Glomerular > 60 Filtrat Rate mL/min Glucose Level 443 *H Hemoglobin A1c 4.9 Calcium Level 11.2 H Total Bilirubin 0.3 Direct 0.00 Bilirubin Indirect 0.3 Bilirubin Aspartate Amino 136 H Transf (AST/SGO T) Alanine 98 H Aminotransferas e (ALT/SGPT) Alkaline 67 Phosphatase Troponin I 0.207 *H Total Protein 5.7 L Albumin 3.1 L Globulin 2.60 Albumin/Globuli 1.19 n Ratio Lipase 214 Serum HCG, NEGATIVE Qualitative Bedside Glucose 416 *H Blood Gas Blood Specimen arterial Source Arterial Blood 02/04/2019 12:1 Date Drawn 5:01 PM Arterial Blood 6.989 *L pH (Temp corrected ) Arterial Blood 67.8 H pCO2 (Temp correct) Arterial Blood 72.1 L pO2 (Temp corrected ) Arterial Blood 15.9 L HCO3 Arterial Blood -16.6 L Base Excess Arterial Blood 86.9 L Oxygen Saturati on Cristino Test ACCEPTAB Arterial Blood Left Radial Gas Puncture Site Arterial 0.3 Blood Carboxyhe moglobin Arterial Blood 0.3 Methemoglobin Blood Gas A-a 573.1 H O2 Differential Oxyhemoglobin 86.4 L Percent Blood Gas 37.0 Temperature Blood Gas 16.0 Respiration Rate Blood Gas 16 Actual Respiration Rat e Blood Gas VENT - AC Modality FiO2 100.0 Blood Gas Tidal 500.0 Volume Blood Gas High 5.0 PEEP Setting Blood Gas D BRIANNA Critical Value Read Back Blood Gas T STANLEYII [facility] Notified Whom Blood Gas 02/04/2019 12:2 Notified Time 2:46 PM POC Venous 10.0 *H Lactate Test 02/04/19 12:13 02/04/19 12:21 02/04/19 16:01 02/04/19 16:05 Urine Color YELLOW Urine Clarity SLIGHTLY CLOUDY A Urine pH 6.0 Urine Specific 1.015 [place] Urine Ketones NEGATIVE Urine Nitrite NEGATIVE Urine Bilirubin NEGATIVE Urine NEGATIVE Urobilinogen Urine Leukocyte NEGATIVE Esterase Urine 2 Microscopic RBC Urine 3 Microscopic WBC Urine Squamous FEW Epithelial Cell s Urine Mucus FEW A Urine NEGATIVE Hemoglobin Urine Glucose NEGATIVE Urine Total 2+ H Protein POC Beta HCG, NEGATIVE Qualitative Bedside Glucose 148 Urine Opiates NEGATIVE Screen Urine NEGATIVE Barbiturates Urine NEGATIVE Amphetamines Screen Urine NEGATIVE Benzodiazepines Screen Urine Cocaine NEGATIVE Screen Urine NEGATIVE Cannabinoids Test 02/04/19 16:21 02/04/19 16:43 02/04/19 17:40 02/04/19 17:55 Lactic Acid 5.5 *H Level Bedside Glucose 119 128 Urine POSITIVE Test Test 02/04/19 18:00 02/04/19 19:01 02/04/19 20:32 02/04/19 23:11 Prothrombin 14.7 Time Prothrombin 1.1 Time Ratio INR 1.14 International Normalized Rati o Activated 30.2 Partial Thrombo plast Time Fibrinogen 281.0 D-Dimer 9244.24 H D-Dimer Comment Sodium Level 142 Potassium Level 4.5 Chloride Level 114 H Carbon Dioxide 17 L Level Anion Gap 11 # Blood Urea 14 Nitrogen Creatinine 1.11 H Est Glomerular 56 L Filtrat Rate mL/min Glucose Level 132 # Calcium Level 9.2 Phosphorus 3.5 Level Magnesium Level 1.8 Total Bilirubin 0.3 Direct 0.00 Bilirubin Indirect 0.3 Bilirubin Aspartate Amino 187 H Transf (AST/SGO T) Alanine 105 H Aminotransferas e (ALT/SGPT) Alkaline 76 Phosphatase Creatine Kinase 266 H Creatine Kinase 7.9 Index Creatinine 20.90 H Kinase MB (Mass) Troponin I 10.000 *H Total Protein 6.4 Albumin 3.3 Globulin 3.10 Albumin/Globuli 1.06 n Ratio Amylase Level 343 H Beta HCG, < 2.4 Quantitative Bedside Glucose 132 141 Blood Gas Blood Specimen arterial Source Arterial Blood 02/04/2019 6:41 Date Drawn :00 PM Arterial Blood 7.160 *L pH (Temp corrected ) Arterial Blood 45.0 pCO2 (Temp correct) Arterial Blood 73.3 L pO2 (Temp corrected ) Arterial Blood 15.7 L HCO3 Arterial Blood -12.8 L Base Excess Arterial Blood 92.7 L Oxygen Saturati on Cristino Test ACCEPTAB Arterial Blood Right Radial Gas Puncture Site Arterial 0.3 Blood Carboxyhe moglobin Arterial Blood 0.3 Methemoglobin Blood Gas A-a 594.7 H O2 Differential Oxyhemoglobin 92.1 L Percent Blood Gas 37.0 Temperature Blood Gas 20.0 Respiration Rate Blood Gas 20 Actual Respiration Rat e Blood Gas VENT - AC Modality FiO2 100.0 Blood Gas Tidal 500.0 Volume Blood Gas Low 5.0 PEEP Setting Blood Gas ANNE MARIE SANDOVALCA Critical Value L Read Back Blood Gas RT Notified Whom Blood Gas 02/04/2019 6:53 Notified Time :00 PM Test 02/04/19 23:40 02/05/19 00:10 02/05/19 01:41 02/05/19 05:16 White Blood 24.1 #H 31.0 #H Count Red Blood Count 5.44 H 5.29 Hemoglobin 15.9 15.5 Hematocrit 50.3 H 49.1 H Mean 92.5 92.8 Corpuscular Volume Mean 29.2 29.3 Corpuscular Hemoglobin Mean 31.6 L 31.6 L Corpuscular Hemoglobin Conc ent Red Cell 13.8 14.1 Distribution Width Platelet Count 261 261 Mean Platelet 10.5 H 10.7 H Volume Immature 0.600 H 0.900 H Granulocytes % Neutrophils % 90.3 H Lymphocytes % 4.2 L Monocytes % 4.4 Eosinophils % 0.0 Basophils % 0.5 Nucleated Red 0.0 0.0 Blood Cells % Immature 0.150 H 0.290 H Granulocytes # Neutrophils # 21.7 H Lymphocytes # 1.0 Monocytes # 1.1 H Eosinophils # 0.0 Basophils # 0.1 Nucleated Red 0.0 Blood Cells # Sodium Level 142 150 H Potassium Level 4.4 4.8 Chloride Level 116 H 125 H Carbon Dioxide 15 L 16 L Level Anion Gap 11 9 Blood Urea 16 15 Nitrogen Creatinine 1.23 H 1.02 H Est Glomerular 50 L > 60 Filtrat Rate mL/min Glucose Level 129 132 Lactic Acid 6.7 *H 6.4 *H Level Calcium Level 8.9 9.3 Phosphorus 2.0 #L 2.1 L Level Magnesium Level 1.7 1.8 Total Bilirubin 0.3 0.4 Direct 0.00 0.00 Bilirubin Indirect 0.3 0.4 Bilirubin Aspartate Amino 104 H 91 H Transf (AST/SGO T) Alanine 85 H 78 H Aminotransferas e (ALT/SGPT) Alkaline 52 66 Phosphatase Total Protein 5.8 L 5.8 L Albumin 3.1 L 3.0 L Globulin 2.70 2.80 Albumin/Globuli 1.14 1.07 n Ratio Blood Gas Blood Specimen arterial Source Arterial Blood 02/05/2019 12:3 Date Drawn 0:56 AM Arterial Blood 7.298 *L pH (Temp corrected ) Arterial Blood 26.3 L pCO2 (Temp correct) Arterial Blood 92.0 pO2 (Temp corrected ) Arterial Blood 12.9 L HCO3 Arterial Blood -12.2 L Base Excess Arterial Blood 97.7 Oxygen Saturati on Cristino Test ACCEPTAB Arterial Blood Left Radial Gas Puncture Site Arterial 0.2 Blood Carboxyhe moglobin Arterial Blood 0.2 Methemoglobin Blood Gas A-a 454.5 H O2 Differential Oxyhemoglobin 97.3 Percent Blood Gas 35.1 Temperature Blood Gas 26.0 Respiration Rate Blood Gas 26 Actual Respiration Rat e Blood Gas VENT - AC Modality FiO2 80.0 Blood Gas Tidal 550.0 Volume Blood Gas Low 5.0 PEEP Setting Blood Gas 36.0 Inspiratory Pressure Blood Gas A.RACHAELITOMILLAI R Critical Value N Read Back Blood Gas MR Notified Whom Blood Gas 02/05/2019 12:4 Notified Time 4:21 AM Bedside Glucose 115 Segmented 68 Neutrophils % (Manual) Band 26 H Neutrophils % (Manual) Lymphocytes % 4 L (Manual) Monocytes % 2 (Manual) Neutrophils # 23.6 H (Manual) Band 8.0 H Neutrophils # Lymphocytes 1.2 (Manual) Monocytes # 0.6 (Manual) Platelet NORMAL Estimate Poikilocytosis 3+ Anisocytosis 1+ Activated 27.9 Partial Thrombo plast Time Mix PTT Normal Plasma Immediat e Mix PTT Normal Plasma 1 Hour Fibrinogen 401.0 # Amylase Level 872 #H Lipase 72 Test 02/05/19 06:00 02/05/19 06:20 02/05/19 08:21 Blood Gas Blood arterial Specimen Source Arterial Blood 02/05/2019 6:10: Date Drawn 00 AM Arterial Blood 7.325 L pH (Temp corrected ) Arterial Blood 26.9 L pCO2 (Temp correct) Arterial Blood 123.8 H pO2 (Temp corrected ) Arterial Blood 13.8 L HCO3 Arterial Blood -10.6 L Base Excess Arterial Blood 98.6 H Oxygen Saturati on Cristino Test ACCEPTAB Arterial Blood Left Radial Gas Puncture Site Arterial 0.2 Blood Carboxyhe moglobin Arterial Blood 0.3 Methemoglobin Blood Gas A-a 420.1 H O2 Differential Oxyhemoglobin 98.1 Percent Blood Gas 36.1 Temperature Blood Gas 20.0 Respiration Rate Blood Gas 26 Actual Respiration Rat e Blood Gas VENT - AC Modality FiO2 80.0 Blood Gas Tidal 550.0 Volume Blood Gas Low 5.0 PEEP Setting Blood Gas TM Notified Whom Blood Gas 02/05/2019 6:22: Notified Time 00 AM Bedside Glucose 128 70 Medications Medication Current Medications Norepinephrine 250 ml @ 1.875 mls/ hr TITRATE IV Last administered on 02/04/19at 18:04; Admin Dose 37.5 MLS/HR; Start 02/04/19 at 12:00 Miscellaneous Information 1 ea NOTE XX ; Start 02/04/19 at 15:00 Glucose (Glutose) 15 gm Q15M PRN PO DECREASED GLUCOSE; Start 02/04/19 at 15:00 Glucose (Glutose) 22.5 gm Q15M PRN PO DECREASED GLUCOSE; Start 02/04/19 at 15:00 Dextrose (D50w Syringe) 25 ml Q15M PRN IV DECREASED GLUCOSE; Start 02/04/19 at 15:00 Dextrose (D50w Syringe) 50 ml Q15M PRN IV DECREASED GLUCOSE; Start 02/04/19 at 15:00 Glucagon (Glucagen) 1 mg Q15M PRN IM DECREASED GLUCOSE; Start 02/04/19 at 15:00 Glucose (Glutose) 15 gm Q15M PRN BUCCAL DECREASED GLUCOSE; Start 02/04/19 at 15:00 Acetaminophen (Tylenol Supp) 650 mg Q4H PRN [place] TEMP > 37C; Start 02/04/19 at 17:30 Acetaminophen (Tylenol Liquid) 650 mg Q4H PRN PO TEMP > 37C; Start 02/04/19 at 17:30 Acetaminophen (Tylenol Supp) 500 mg Q6H [place] ; Start 02/05/19 at 17:30 Acetaminophen (Tylenol Liquid) 500 mg Q6H PO ; Start 02/05/19 at 17:30 Meperidine HCl (Demerol) 12.5 mg Q4H PRN IV POST OPERATIVE SHIVERING; Start 02/04/19 at 17:30 Meperidine HCl (Demerol) 25 mg Q4H PRN IV POST OPERATIVE SHIVERING; Start 02/04/19 at 17:30 Eye Lubricant (Akwa Oint) 1 applic Q6 BOTH EYES Last administered on 02/05/19 06:23; Admin Dose 1 APPLIC; Start 02/04/19 at 18:00 Eye Lubricant (Artificial Tears Oph) 2 drop Q6 BOTH EYES Last administered on 02/05/19 06:23; Admin Dose 2 DROP; Start 02/04/19 at 18:00 Midazolam HCl 50 ml @ 1 mls/hr TITRATE IV Last administered on 02/04/19at 23:22; Admin Dose 2 MLS/HR; Start 02/04/19 at 22:30 Fentanyl 100 ml @ 2.5 mls/hr TITRATE IV Last administered on 02/05/19 00:05; Admin Dose 2.5 MLS/HR; Start 02/04/19 at 22:30 Diagnostic Test (Pha) (Accu-Chek) 1 ea Q4 XX Last administered on 02/05/19 08:22; Admin Dose 1 EA; Start 02/05/19 at 00:00 Phenylephrine HCl 40 mg/Dextrose 250 ml @ 37.5 mls/hr TITRATE IV Last ad ministered on 02/05/19 03:13; Admin Dose 33.75 MLS/HR; Start 02/05/19 at 00:30 Levetiracetam 100 ml @ 400 mls/hr Q12 IVPB Last administered on 02/05/19at 08:43; Admin Dose 400 MLS/HR; Start 02/05/19 at 09:00 Dextrose/Sodium Chloride 1,000 ml @ 80 mls/hr [id number] IV ; Start 02/05/19 at 09:30; Status CALEB MARQUEZ Feb 05, 2019 09:29
[2019-02-05] MEDS ORDERED: DEXTROSE 5%-0.9% NACL 1,000 ML IV SCH (09:30)
--- NOTE | 2019-02-05 09:30 | CONS ---
Assessment/Plan Assessment/Plan Hospital Course (Demo Recall) 1. Intracranial hemorrhage/Subarachnoid hemorrhage 2. Hypoxic respiratory failure 3. Cardiomyopathy probably stress-induced versus others 4. Mildly abnormal troponin probably related to above 5. Severe encephalopathy due to above 6. Seizure due to above 7. History of hypertension currently hypotensive 8. Shock secondary to above Recommendation: Continue the vent support. Follow-up with neurology recommendations Targeted temperature as per neurology recommendation Continue with Levophed and huber-to maintain the blood pressure for now I will give a dose of digoxin adjusted as needed No aspirin or anticoagulant will be given given her intracranial bleed obviously Continue with ICU care More than 45 minutes critical care time was spent renal management is critically ill patient excluding procedures Thank you for his referral. We will continue to follow along with you FAITH PAT MD [facility] Consultation Date/Type/Reason Admit Date/Time Date of Consultation: Feb 05, 2019 Type of Consult Cardiology Reason for Consultation + trop Requesting Provider: GUERO WILLOUGHBY Date/Time of Note DATE: 02/05/19 TIME: 09:22 Hx of Present Illness Interventional cardiology consultation note Chief complaint: Headache Reason for consult: Abnormal troponin History of present illness: Thank you for this referral. History was obtained from the patient's family/and discussion with physician staff review of chart. Patient himself is unable to provide history This is an unfortunate 33-year-old female with history of hypertension who has had headache over the past few days. Patient came to emergency room last night after she was seizing. She was noted to have intracranial bleeding. Patient has been intubated currently unresponsive with dilated pupil and on the vent. She also has been hypotensive and is on Levophed and Huber-Synephrine drip currently. Patient troponin has been mildly elevated for which he was kindly asked to evaluate and treat. There is no report of chest pain or pressure prior to this event as far as he can say Allergies: No known drug allergies Medications methyldopa Family history: No reported history of coronary artery disease Social history: Does not smoke but does drink. Is unclear if use drugs or not Past medical history: Hypertension is being followed all review Review of system: Patient denies all others except for above-mentioned Past Medical History Home Meds Reported Medications Methyldopa* (Aldomet*) 500 Mg Tab, 500 MG PO TID, #90 TAB 02/04/19 Discontinued Reported Medications [Denies Meds] No Conflict Check 07/05/10 Medications Current Medications Norepinephrine 250 ml @ 1.875 mls/ hr TITRATE IV Last administered on 02/04/19at 18:04; Admin Dose 37.5 MLS/HR; Start 02/04/19 at 12:00 Miscellaneous Information 1 ea NOTE XX ; Start 02/04/19 at 15:00 Glucose (Glutose) 15 gm Q15M PRN PO DECREASED GLUCOSE; Start 02/04/19 at 15:00 Glucose (Glutose) 22.5 gm Q15M PRN PO DECREASED GLUCOSE; Start 02/04/19 at 15:00 Dextrose (D50w Syringe) 25 ml Q15M PRN IV DECREASED GLUCOSE; Start 02/04/19 at 15:00 Dextrose (D50w Syringe) 50 ml Q15M PRN IV DECREASED GLUCOSE; Start 02/04/19 at 15:00 Glucagon (Glucagen) 1 mg Q15M PRN IM DECREASED GLUCOSE; Start 02/04/19 at 15:00 Glucose (Glutose) 15 gm Q15M PRN BUCCAL DECREASED GLUCOSE; Start 02/04/19 at 15:00 Acetaminophen (Tylenol Supp) 650 mg Q4H PRN [place] TEMP > 37C; Start 02/04/19 at 17:30 Acetaminophen (Tylenol Liquid) 650 mg Q4H PRN PO TEMP > 37C; Start 02/04/19 at 17:30 Acetaminophen (Tylenol Supp) 500 mg Q6H MN ; Start 02/05/19 at 17:30 Acetaminophen (Tylenol Liquid) 500 mg Q6H PO ; Start 02/05/19 at 17:30 Meperidine HCl (Demerol) 12.5 mg Q4H PRN IV POST OPERATIVE SHIVERING; Start 02/04/19 at 17:30 Meperidine HCl (Demerol) 25 mg Q4H PRN IV POST OPERATIVE SHIVERING; Start 02/04/19 at 17:30 Eye Lubricant (Akwa Oint) 1 applic Q6 BOTH EYES Last administered on 02/05/19at 06:23; Admin Dose 1 APPLIC; Start 02/04/19 at 18:00 Eye Lubricant (Artificial Tears Oph) 2 drop Q6 BOTH EYES Last administered on 02/05/19at 06:23; Admin Dose 2 DROP; Start 02/04/19 at 18:00 Midazolam HCl 50 ml @ 1 mls/hr TITRATE IV Last administered on 02/04/19at 23:22; Admin Dose 2 MLS/HR; Start 02/04/19 at 22:30 Fentanyl 100 ml @ 2.5 mls/hr TITRATE IV Last administered on 02/05/19at 00:05; Admin Dose 2.5 MLS/HR; Start 02/04/19 at 22:30 Diagnostic Test (Pha) (Accu-Chek) 1 ea Q4 XX Last administered on 02/05/19at 08:22; Admin Dose 1 EA; Start 02/05/19 at 00:00 Phenylephrine HCl 40 mg/Dextrose 250 ml @ 37.5 mls/hr TITRATE IV Last administered on 02/05/19at 03:13; Admin Dose 33.75 MLS/HR; Start 02/05/19 at 00:30 Levetiracetam 100 ml @ 400 mls/hr Q12 IVPB Last administered on 02/05/19at 08:43; Admin Dose 400 MLS/HR; Start 02/05/19 at 09:00 Dextrose/Sodium Chloride 1,000 ml @ 80 mls/hr [id number] IV ; Start 02/05/19 at 09:30; Status UNV Allergies: Coded Allergies: No Known Allergy (Verified , 02/04/19) Past Surgical History Past Surgical Hx: other (c section) Social History Alcohol Use: occasionally Smoking Status: Never smoker Drug Use: other (unk) Exam/Review of Systems Vital Signs Vitals Vital Signs Date Temp Pulse Resp B/P (MAP) Pulse Ox O2 O2 Flow FiO2 Time Delivery Rate 02/05/19 83 08:00 02/05/19 70 08:00 02/05/19 26 106/89 07:15 (95) 02/05/19 97.4 07:00 02/05/19 100 06:30 02/04/19 Mechanical 20:15 Ventilator Intake and Output 02/04/19 02/04/19 02/05/19 1515:00 23:00 07:00 IntakeIntake Total 37.5 ml 735.61 ml 1291.375 ml OutputOutput Total 338 ml 2036 ml BalanceBalance 37.5 ml 397.61 ml -744.625 ml Exam Exam General: Status with intubation on the vent in ICU HEENT: NC/AT. pupils are dilated and fixed NECK: no stridor. CV: RRR. systolic murmur; no gallop or rubs. PULM: no wheezing or rhonchi. GI: SOFT, NT, ND, no rebound or guarding Extremity: trace B/L LE edema. no clubbing. neuro: Nonresponsive Psych: calm rectal: deferred : normal EKG in February 05 2 AM shows sinus tachycardia. Nonspecific diffuse T wave abnormalities. Echocardiogram done 02/04/2019 which was personally reviewed again shows: Normal left ventricular systolic function. Normal left ventricular cavity size. Mild concentric left ventricular hypertrophy. Severe global left ventricular systolic dysfunction. Ejection fraction is visually estimated at 30-35 %. Abnormal Diastolic Function. These segments of the LV are hypokinetic mid anterior segment, apical anterior segment, inferolateral mid segment, apical lateral segment, anterolateral mid segment, inferior mid segment, inferior apex segment, inferoseptum mid segment, anteroseptum mid segment and apical septum. The left atrium is normal in size. Normal appearance and function of the mitral valve with trace physiologic regurgitation. Normal appearance of the aortic valve. No significant aortic stenosis or insufficiency. Normal appearance of the tricuspid valve. Estimated peak PA systolic pressure 41 mmHg. There is trace tricuspid regurgitation. Labs Result Diagram: 02/05/19 0516 02/05/19 0516 Results 24hrs Laboratory Tests Test 02/04/19 11:37 02/04/19 11:39 02/04/19 11:40 02/04/19 11:42 White Blood 15.9 H Count Red Blood Count 5.23 Hemoglobin 15.4 Hematocrit 50.1 H Mean 95.8 Corpuscular Volume Mean 29.4 Corpuscular Hemoglobin Mean 30.7 L Corpuscular Hemoglobin Conc ent Red Cell 13.4 Distribution Width Platelet Count 274 Mean Platelet 11.3 H Volume Immature 9.500 H Granulocytes % Neutrophils % Segmented 50 Neutrophils % (Manual) Band 15 H Neutrophils % (Manual) Lymphocytes % Lymphocytes % 28 (Manual) Reactive 2 H Lymphocytes % (Manual) Monocytes % Monocytes % 3 (Manual) Eosinophils % Eosinophils % 1 (Manual) Basophils % Metamyelocytes 1 H % (manual) Nucleated Red 0.1 H Blood Cells % Immature 1.500 H Granulocytes # Neutrophils # Neutrophils # 8.3 H (Manual) Band 2.3 H Neutrophils # Lymphocytes 4.4 H (Manual) Lymphocytes # Reactive 0.3 H Lymphocytes # Monocytes # Monocytes # 0.4 (Manual) Eosinophils # Basophils # Metamyelocytes 0.1 H # Nucleated Red Blood Cells # Platelet NORMAL Estimate Anisocytosis 1+ Microcytosis 1+ Prothrombin 17.3 H Time Prothrombin 1.4 Time Ratio INR 1.40 International Normalized Rati o Activated 50.7 H Partial Thrombo plast Time Sodium Level 136 Potassium Level 2.8 *L Chloride Level 99 Carbon Dioxide 16 L Level Anion Gap 21 H Blood Urea 10 Nitrogen Creatinine 0.87 Est Glomerular > 60 Filtrat Rate mL/min Glucose Level 443 *H Hemoglobin A1c 4.9 Calcium Level 11.2 H Total Bilirubin 0.3 Direct 0.00 Bilirubin Indirect 0.3 Bilirubin Aspartate Amino 136 H Transf (AST/SGO T) Alanine 98 H Aminotransferas e (ALT/SGPT) Alkaline 67 Phosphatase Troponin I 0.207 *H Total Protein 5.7 L Albumin 3.1 L Globulin 2.60 Albumin/Globuli 1.19 n Ratio Lipase 214 Serum HCG, NEGATIVE Qualitative Bedside Glucose 416 *H Blood Gas Blood Specimen arterial Source Arterial Blood 02/04/2019 12:1 Date Drawn 5:01 PM Arterial Blood 6.989 *L pH (Temp corrected ) Arterial Blood 67.8 H pCO2 (Temp correct) Arterial Blood 72.1 L pO2 (Temp corrected ) Arterial Blood 15.9 L HCO3 Arterial Blood -16.6 L Base Excess Arterial Blood 86.9 L Oxygen Saturati on Cristino Test ACCEPTAB Arterial Blood Left Radial Gas Puncture Site Arterial 0.3 Blood Carboxyhe moglobin Arterial Blood 0.3 Methemoglobin Blood Gas A-a 573.1 H O2 Differential Oxyhemoglobin 86.4 L Percent Blood Gas 37.0 Temperature Blood Gas 16.0 Respiration Rate Blood Gas 16 Actual Respiration Rat e Blood Gas VENT - AC Modality FiO2 100.0 Blood Gas Tidal 500.0 Volume Blood Gas High 5.0 PEEP Setting Blood Gas D PEDRITOABILEXI Critical Value Read Back Blood Gas T [facility] Notified Whom Blood Gas 02/04/2019 12:2 Notified Time 2:46 PM POC Venous 10.0 *H Lactate Test 02/04/19 12:13 02/04/19 12:21 02/04/19 16:01 02/04/19 16:05 Urine Color YELLOW Urine Clarity SLIGHTLY CLOUDY A Urine pH 6.0 Urine Specific 1.015 [place] Urine Ketones NEGATIVE Urine Nitrite NEGATIVE Urine Bilirubin NEGATIVE Urine NEGATIVE Urobilinogen Urine Leukocyte NEGATIVE Esterase Urine 2 Microscopic RBC Urine 3 Microscopic WBC Urine Squamous FEW Epithelial Cell s Urine Mucus FEW A Urine NEGATIVE Hemoglobin Urine Glucose NEGATIVE Urine Total 2+ H Protein POC Beta HCG, NEGATIVE Qualitative Bedside Glucose 148 Urine Opiates NEGATIVE Screen Urine NEGATIVE Barbiturates Urine NEGATIVE Amphetamines Screen Urine NEGATIVE Benzodiazepines Screen Urine Cocaine NEGATIVE Screen Urine NEGATIVE Cannabinoids Test 02/04/19 16:21 02/04/19 16:43 02/04/19 17:40 02/04/19 17:55 Lactic Acid 5.5 *H Level Bedside Glucose 119 128 Urine POSITIVE Test Test 02/04/19 18:00 02/04/19 19:01 02/04/19 20:32 02/04/19 23:11 Prothrombin 14.7 Time Prothrombin 1.1 Time Ratio INR 1.14 International Normalized Rati o Activated 30.2 Partial Thrombo plast Time Fibrinogen 281.0 D-Dimer 9244.24 H D-Dimer Comment Sodium Level 142 Potassium Level 4.5 Chloride Level 114 H Carbon Dioxide 17 L Level Anion Gap 11 # Blood Urea 14 Nitrogen Creatinine 1.11 H Est Glomerular 56 L Filtrat Rate mL/min Glucose Level 132 # Calcium Level 9.2 Phosphorus 3.5 Level Magnesium Level 1.8 Total Bilirubin 0.3 Direct 0.00 Bilirubin Indirect 0.3 Bilirubin Aspartate Amino 187 H Transf (AST/SGO T) Alanine 105 H Aminotransferas e (ALT/SGPT) Alkaline 76 Phosphatase Creatine Kinase 266 H Creatine Kinase 7.9 Index Creatinine 20.90 H Kinase MB (Mass) Troponin I 10.000 *H Total Protein 6.4 Albumin 3.3 Globulin 3.10 Albumin/Globuli 1.06 n Ratio Amylase Level 343 H Beta HCG, < 2.4 Quantitative Bedside Glucose 132 141 Blood Gas Blood Specimen arterial Source Arterial Blood 02/04/2019 6:41 Date Drawn :00 PM Arterial Blood 7.160 *L pH (Temp corrected ) Arterial Blood 45.0 pCO2 (Temp correct) Arterial Blood 73.3 L pO2 (Temp corrected ) Arterial Blood 15.7 L HCO3 Arterial Blood -12.8 L Base Excess Arterial Blood 92.7 L Oxygen Saturati on Cristino Test ACCEPTAB Arterial Blood Right Radial Gas Puncture Site Arterial 0.3 Blood Carboxyhe moglobin Arterial Blood 0.3 Methemoglobin Blood Gas A-a 594.7 H O2 Differential Oxyhemoglobin 92.1 L Percent Blood Gas 37.0 Temperature Blood Gas 20.0 Respiration Rate Blood Gas 20 Actual Respiration Rat e Blood Gas VENT - AC Modality FiO2 100.0 Blood Gas Tidal 500.0 Volume Blood Gas Low 5.0 PEEP Setting Blood Gas ANNE MARIE EID Critical Value L Read Back Blood Gas RT Notified Whom Blood Gas 02/04/2019 6:53 Notified Time :00 PM Test 02/04/19 23:40 02/05/19 00:10 02/05/19 01:41 02/05/19 05:16 White Blood 24.1 #H 31.0 #H Count Red Blood Count 5.44 H 5.29 Hemoglobin 15.9 15.5 Hematocrit 50.3 H 49.1 H Mean 92.5 92.8 Corpuscular Volume Mean 29.2 29.3 Corpuscular Hemoglobin Mean 31.6 L 31.6 L Corpuscular Hemoglobin Conc ent Red Cell 13.8 14.1 Distribution Width Platelet Count 261 261 Mean Platelet 10.5 H 10.7 H Volume Immature 0.600 H 0.900 H Granulocytes % Neutrophils % 90.3 H Lymphocytes % 4.2 L Monocytes % 4.4 Eosinophils % 0.0 Basophils % 0.5 Nucleated Red 0.0 0.0 Blood Cells % Immature 0.150 H 0.290 H Granulocytes # Neutrophils # 21.7 H Lymphocytes # 1.0 Monocytes # 1.1 H Eosinophils # 0.0 Basophils # 0.1 Nucleated Red 0.0 Blood Cells # Sodium Level 142 150 H Potassium Level 4.4 4.8 Chloride Level 116 H 125 H Carbon Dioxide 15 L 16 L Level Anion Gap 11 9 Blood Urea 16 15 Nitrogen Creatinine 1.23 H 1.02 H Est Glomerular 50 L > 60 Filtrat Rate mL/min Glucose Level 129 132 Lactic Acid 6.7 *H 6.4 *H Level Calcium Level 8.9 9.3 Phosphorus 2.0 #L 2.1 L Level Magnesium Level 1.7 1.8 Total Bilirubin 0.3 0.4 Direct 0.00 0.00 Bilirubin Indirect 0.3 0.4 Bilirubin Aspartate Amino 104 H 91 H Transf (AST/SGO T) Alanine 85 H 78 H Aminotransferas e (ALT/SGPT) Alkaline 52 66 Phosphatase Total Protein 5.8 L 5.8 L Albumin 3.1 L 3.0 L Globulin 2.70 2.80 Albumin/Globuli 1.14 1.07 n Ratio Blood Gas Blood Specimen arterial Source Arterial Blood 02/05/2019 12:3 Date Drawn 0:56 AM Arterial Blood 7.298 *L pH (Temp corrected ) Arterial Blood 26.3 L pCO2 (Temp correct) Arterial Blood 92.0 pO2 (Temp corrected ) Arterial Blood 12.9 L HCO3 Arterial Blood -12.2 L Base Excess Arterial Blood 97.7 Oxygen Saturati on Cristino Test ACCEPTAB Arterial Blood Left Radial Gas Puncture Site Arterial 0.2 Blood Carboxyhe moglobin Arterial Blood 0.2 Methemoglobin Blood Gas A-a 454.5 H O2 Differential Oxyhemoglobin 97.3 Percent Blood Gas 35.1 Temperature Blood Gas 26.0 Respiration Rate Blood Gas 26 Actual Respiration Rat e Blood Gas VENT - AC Modality FiO2 80.0 Blood Gas Tidal 550.0 Volume Blood Gas Low 5.0 PEEP Setting Blood Gas 36.0 Inspiratory Pressure Blood Gas A.RENO R Critical Value N Read Back Blood Gas MR Notified Whom Blood Gas 02/05/2019 12:4 Notified Time 4:21 AM Bedside Glucose 115 Segmented 68 Neutrophils % (Manual) Band 26 H Neutrophils % (Manual) Lymphocytes % 4 L (Manual) Monocytes % 2 (Manual) Neutrophils # 23.6 H (Manual) Band 8.0 H Neutrophils # Lymphocytes 1.2 (Manual) Monocytes # 0.6 (Manual) Platelet NORMAL Estimate Poikilocytosis 3+ Anisocytosis 1+ Activated 27.9 Partial Thrombo plast Time Mix PTT Normal Plasma Immediat e Mix PTT Normal Plasma 1 Hour Fibrinogen 401.0 # Amylase Level 872 #H Lipase 72 Test 02/05/19 06:00 02/05/19 06:20 02/05/19 08:21 Blood Gas Blood arterial Specimen Source Arterial Blood 02/05/2019 6:10: Date Drawn 00 AM Arterial Blood 7.325 L pH (Temp corrected ) Arterial Blood 26.9 L pCO2 (Temp correct) Arterial Blood 123.8 H pO2 (Temp corrected ) Arterial Blood 13.8 L HCO3 Arterial Blood -10.6 L Base Excess Arterial Blood 98.6 H Oxygen Saturati on Cristino Test ACCEPTAB Arterial Blood Left Radial Gas Puncture Site Arterial 0.2 Blood Carboxyhe moglobin Arterial Blood 0.3 Methemoglobin Blood Gas A-a 420.1 H O2 Differential Oxyhemoglobin 98.1 Percent Blood Gas 36.1 Temperature Blood Gas 20.0 Respiration Rate Blood Gas 26 Actual Respiration Rat e Blood Gas VENT - AC Modality FiO2 80.0 Blood Gas Tidal 550.0 Volume Blood Gas Low 5.0 PEEP Setting Blood Gas TM Notified Whom Blood Gas 02/05/2019 6:22: Notified Time 00 AM Bedside Glucose 128 70 Medications Medications Current Medications Norepinephrine 250 ml @ 1.875 mls/ hr TITRATE IV Last administered on 02/04/19at 18:04; Admin Dose 37.5 MLS/HR; Start 02/04/19 at 12:00 Miscellaneous Information 1 ea NOTE XX ; Start 02/04/19 at 15:00 Glucose (Glutose) 15 gm Q15M PRN PO DECREASED GLUCOSE; Start 02/04/19 at 15:00 Glucose (Glutose) 22.5 gm Q15M PRN PO DECREASED GLUCOSE; Start 02/04/19 at 15: 00 Dextrose (D50w Syringe) 25 ml Q15M PRN IV DECREASED GLUCOSE; Start 02/04/19 at 15:00 Dextrose (D50w Syringe) 50 ml Q15M PRN IV DECREASED GLUCOSE; Start 02/04/19 at 15:00 Glucagon (Glucagen) 1 mg Q15M PRN IM DECREASED GLUCOSE; Start 02/04/19 at 15:00 Glucose (Glutose) 15 gm Q15M PRN BUCCAL DECREASED GLUCOSE; Start 02/04/19 at 15:00 Acetaminophen (Tylenol Supp) 650 mg Q4H PRN [place] TEMP > 37C; Start 02/04/19 at 17:30 Acetaminophen (Tylenol Liquid) 650 mg Q4H PRN PO TEMP > 37C; Start 02/04/19 at 17:30 Acetaminophen (Tylenol Supp) 500 mg Q6H MN ; Start 02/05/19 at 17:30 Acetaminophen (Tylenol Liquid) 500 mg Q6H PO ; Start 02/05/19 at 17:30 Meperidine HCl (Demerol) 12.5 mg Q4H PRN IV POST OPERATIVE SHIVERING; Start 02/04/19 at 17:30 Meperidine HCl (Demerol) 25 mg Q4H PRN IV POST OPERATIVE SHIVERING; Start 02/04/19 at 17:30 Eye Lubricant (Akwa Oint) 1 applic Q6 BOTH EYES Last administered on 02/05/19 06:23; Admin Dose 1 APPLIC; Start 02/04/19 at 18:00 Eye Lubricant (Artificial Tears Oph) 2 drop Q6 BOTH EYES Last administered on 02/05/19 06:23; Admin Dose 2 DROP; Start 02/04/19 at 18:00 Midazolam HCl 50 ml @ 1 mls/hr TITRATE IV Last administered on 02/04/19 23:22; Admin Dose 2 MLS/HR; Start 02/04/19 at 22:30 Fentanyl 100 ml @ 2.5 mls/hr TITRATE IV Last administered on 02/05/19 00:05; Admin Dose 2.5 MLS/HR; Start 02/04/19 at 22:30 Diagnostic Test (Pha) (Accu-Chek) 1 ea Q4 XX Last administered on 02/05/19 08:22; Admin Dose 1 EA; Start 02/05/19 at 00:00 Phenylephrine HCl 40 mg/Dextrose 250 ml @ 37.5 mls/hr TITRATE IV Last administered on 02/05/19 03:13; Admin Dose 33.75 MLS/HR; Start 02/05/19 at 00:30 Levetiracetam 100 ml @ 400 mls/hr Q12 IVPB Last administered on 02/05/19 08:43; Admin Dose 400 MLS/HR; Start 02/05/19 at 09:00 Dextrose/Sodium Chloride 1,000 ml @ 80 mls/hr [id number] IV ; Start 02/05/19 at 09:30; Status FAITH RODRÍGUEZ MD Feb 05, 2019 09:30
[2019-02-05] MEDS ORDERED: NA BICARBONATE 8.4% 50 ML SYG IV STA (10:05)
[2019-02-05] MEDS: PIPER-TAZO 3.375 GM IV (PMX) 100 ML IVPB SCH ×3 (10:16→21:58)
[2019-02-05] MEDS: MIDAZOLAM (DRIP) 50 mg/50 mL 50 ML IV SCH (10:16)
--- NOTE | 2019-02-05 11:01 | PN ---
Date/Time of Note Date/Time of Note DATE: 02/05/19 TIME: 11:01 Assessment/Plan VTE Prophylaxis Risk score (from Ns)>0 risk: 4 SCD applied (from Ns): Yes Pharmacological prophylaxis: NA/contraindicated Pharm contraindication: hemorrhagic infarct Lines/Catheters IV Catheter Type (from Nrsg): Central Line Central line still needed: Yes Urinary Cath still in place: Yes Reason Cath still needed: other (indicate) Assessment/Plan Hospital Course 33-year-old female with a prior history of headaches for the last 3 days in the occipital region per report who was brought in after being found unresponsive at home, also with seizure and frothing at the mouth currently managed as follows: 1. Acute encephalopathy likely secondary to #2 acute 2. 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 No evidence of aneurysm. 3. Acute respiratory failure secondary to the above, now ventilator dependent -Today she has bilateral airspace opacification concerning for pulmonary edema versus pneumonitis. High suspicion for aspiration pneumonitis. 4. Status post cardiac arrest with ROSC 5. Elevated troponins rule out NSTEMI likely secondary to cardiac compressions 6. Systemic inflammatory response syndrome with severe lactic acidosis secondary to the above 7. Hyperglycemia likely 2/2 shock, a1c 4.9 8. Hypophosphatemia 9. Systemic shock likely related to cardiac arrest currently on pressor support 10. New-onset seizure activity x1 11. Chronic hypertension, currently in shock 12. Acute renal insufficiency likely secondary to hypoperfusion 13. Acute hypernatremia, DI? 14. Metabolic acidosis 15. Mild transaminitis Plan: Continue vent and pressor support for now Continue TTM per protocol appreciate all consultants Continue Keppra Start empiric abx based on CXR findings continue ICU care and micromanagement Further interventions per clinical course Overall prognosis grim Care time >35mins Result Diagram: 02/05/19 0516 02/05/19 0516 Results 24hrs Laboratory Tests Test 02/04/19 11:37 02/04/19 11:39 02/04/19 11:40 02/04/19 11:42 White Blood 15.9 H Count Red Blood Count 5.23 Hemoglobin 15.4 Hematocrit 50.1 H Mean 95.8 Corpuscular Volume Mean 29.4 Corpuscular Hemoglobin Mean 30.7 L Corpuscular Hemoglobin Conc ent Red Cell 13.4 Distribution Width Platelet Count 274 Mean Platelet 11.3 H Volume Immature 9.500 H Granulocytes % Neutrophils % Segmented 50 Neutrophils % (Manual) Band 15 H Neutrophils % (Manual) Lymphocytes % Lymphocytes % 28 (Manual) Reactive 2 H Lymphocytes % (Manual) Monocytes % Monocytes % 3 (Manual) Eosinophils % Eosinophils % 1 (Manual) Basophils % Metamyelocytes 1 H % (manual) Nucleated Red 0.1 H Blood Cells % Immature 1.500 H Granulocytes # Neutrophils # Neutrophils # 8.3 H (Manual) Band 2.3 H Neutrophils # Lymphocytes 4.4 H (Manual) Lymphocytes # Reactive 0.3 H Lymphocytes # Monocytes # Monocytes # 0.4 (Manual) Eosinophils # Basophils # Metamyelocytes 0.1 H # Nucleated Red Blood Cells # Platelet NORMAL Estimate Anisocytosis 1+ Microcytosis 1+ Prothrombin 17.3 H Time Prothrombin 1.4 Time Ratio INR 1.40 International Normalized Rati o Activated 50.7 H Partial Thrombo plast Time Sodium Level 136 Potassium Level 2.8 *L Chloride Level 99 Carbon Dioxide 16 L Level Anion Gap 21 H Blood Urea 10 Nitrogen Creatinine 0.87 Est Glomerular > 60 Filtrat Rate mL/min Glucose Level 443 *H Hemoglobin A1c 4.9 Calcium Level 11.2 H Total Bilirubin 0.3 Direct 0.00 Bilirubin Indirect 0.3 Bilirubin Aspartate Amino 136 H Transf (AST/SGO T) Alanine 98 H Aminotransferas e (ALT/SGPT) Alkaline 67 Phosphatase Troponin I 0.207 *H Total Protein 5.7 L Albumin 3.1 L Globulin 2.60 Albumin/Globuli 1.19 n Ratio Lipase 214 Serum HCG, NEGATIVE Qualitative Bedside Glucose 416 *H Blood Gas Blood Specimen arterial Source Arterial Blood 02/04/2019 12:1 Date Drawn 5:01 PM Arterial Blood 6.989 *L pH (Temp corrected ) Arterial Blood 67.8 H pCO2 (Temp correct) Arterial Blood 72.1 L pO2 (Temp corrected ) Arterial Blood 15.9 L HCO3 Arterial Blood -16.6 L Base Excess Arterial Blood 86.9 L Oxygen Saturati on Cristino Test ACCEPTAB Arterial Blood Left Radial Gas Puncture Site Arterial 0.3 Blood Carboxyhe moglobin Arterial Blood 0.3 Methemoglobin Blood Gas A-a 573.1 H O2 Differential Oxyhemoglobin 86.4 L Percent Blood Gas 37.0 Temperature Blood Gas 16.0 Respiration Rate Blood Gas 16 Actual Respiration Rat e Blood Gas VENT - AC Modality FiO2 100.0 Blood Gas Tidal 500.0 Volume Blood Gas High 5.0 PEEP Setting Blood Gas D BRIANNA Critical Value Read Back Blood Gas T SIR[facility] Notified Whom Blood Gas 02/04/2019 12:2 Notified Time 2:46 PM POC Venous 10.0 *H Lactate Test 02/04/19 12:13 02/04/19 12:21 02/04/19 16:01 02/04/19 16:05 Urine Color YELLOW Urine Clarity SLIGHTLY CLOUDY A Urine pH 6.0 Urine Specific 1.015 [place] Urine Ketones NEGATIVE Urine Nitrite NEGATIVE Urine Bilirubin NEGATIVE Urine NEGATIVE Urobilinogen Urine Leukocyte NEGATIVE Esterase Urine 2 Microscopic RBC Urine 3 Microscopic WBC Urine Squamous FEW Epithelial Cell s Urine Mucus FEW A Urine NEGATIVE Hemoglobin Urine Glucose NEGATIVE Urine Total 2+ H Protein POC Beta HCG, NEGATIVE Qualitative Bedside Glucose 148 Urine Opiates NEGATIVE Screen Urine NEGATIVE Barbiturates Urine NEGATIVE Amphetamines Screen Urine NEGATIVE Benzodiazepines Screen Urine Cocaine NEGATIVE Screen Urine NEGATIVE Cannabinoids Test 02/04/19 16:21 02/04/19 16:43 02/04/19 17:40 02/04/19 17:55 Lactic Acid 5.5 *H Level Bedside Glucose 119 128 Urine POSITIVE Test Test 02/04/19 18:00 02/04/19 19:01 02/04/19 20:32 02/04/19 23:11 Prothrombin 14.7 Time Prothrombin 1.1 Time Ratio INR 1.14 International Normalized Rati o Activated 30.2 Partial Thrombo plast Time Fibrinogen 281.0 D-Dimer 9244.24 H D-Dimer Comment Sodium Level 142 Potassium Level 4.5 Chloride Level 114 H Carbon Dioxide 17 L Level Anion Gap 11 # Blood Urea 14 Nitrogen Creatinine 1.11 H Est Glomerular 56 L Filtrat Rate mL/min Glucose Level 132 # Calcium Level 9.2 Phosphorus 3.5 Level Magnesium Level 1.8 Total Bilirubin 0.3 Direct 0.00 Bilirubin Indirect 0.3 Bilirubin Aspartate Amino 187 H Transf (AST/SGO T) Alanine 105 H Aminotransferas e (ALT/SGPT) Alkaline 76 Phosphatase Creatine Kinase 266 H Creatine Kinase 7.9 Index Creatinine 20.90 H Kinase MB (Mass) Troponin I 10.000 *H Total Protein 6.4 Albumin 3.3 Globulin 3.10 Albumin/Globuli 1.06 n Ratio Amylase Level 343 H Beta HCG, < 2.4 Quantitative Bedside Glucose 132 141 Blood Gas Blood Specimen arterial Source Arterial Blood 02/04/2019 6:41 Date Drawn :00 PM Arterial Blood 7.160 *L pH (Temp corrected ) Arterial Blood 45.0 pCO2 (Temp correct) Arterial Blood 73.3 L pO2 (Temp corrected ) Arterial Blood 15.7 L HCO3 Arterial Blood -12.8 L Base Excess Arterial Blood 92.7 L Oxygen Saturati on Cristino Test ACCEPTAB Arterial Blood Right Radial Gas Puncture Site Arterial 0.3 Blood Carboxyhe moglobin Arterial Blood 0.3 Methemoglobin Blood Gas A-a 594.7 H O2 Differential Oxyhemoglobin 92.1 L Percent Blood Gas 37.0 Temperature Blood Gas 20.0 Respiration Rate Blood Gas 20 Actual Respiration Rat e Blood Gas VENT - AC Modality FiO2 100.0 Blood Gas Tidal 500.0 Volume Blood Gas Low 5.0 PEEP Setting Blood Gas ANNE MARIECARLEE SANTOSROBERTO Critical Value L Read Back Blood Gas RT Notified Whom Blood Gas 02/04/2019 6:53 Notified Time :00 PM Test 02/04/19 23:40 02/05/19 00:10 02/05/19 01:41 02/05/19 05:16 White Blood 24.1 #H 31.0 #H Count Red Blood Count 5.44 H 5.29 Hemoglobin 15.9 15.5 Hematocrit 50.3 H 49.1 H Mean 92.5 92.8 Corpuscular Volume Mean 29.2 29.3 Corpuscular Hemoglobin Mean 31.6 L 31.6 L Corpuscular Hemoglobin Conc ent Red Cell 13.8 14.1 Distribution Width Platelet Count 261 261 Mean Platelet 10.5 H 10.7 H Volume Immature 0.600 H 0.900 H Granulocytes % Neutrophils % 90.3 H Lymphocytes % 4.2 L Monocytes % 4.4 Eosinophils % 0.0 Basophils % 0.5 Nucleated Red 0.0 0.0 Blood Cells % Immature 0.150 H 0.290 H Granulocytes # Neutrophils # 21.7 H Lymphocytes # 1.0 Monocytes # 1.1 H Eosinophils # 0.0 Basophils # 0.1 Nucleated Red 0.0 Blood Cells # Sodium Level 142 150 H Potassium Level 4.4 4.8 Chloride Level 116 H 125 H Carbon Dioxide 15 L 16 L Level Anion Gap 11 9 Blood Urea 16 15 Nitrogen Creatinine 1.23 H 1.02 H Est Glomerular 50 L > 60 Filtrat Rate mL/min Glucose Level 129 132 Lactic Acid 6.7 *H 6.4 *H Level Calcium Level 8.9 9.3 Phosphorus 2.0 #L 2.1 L Level Magnesium Level 1.7 1.8 Total Bilirubin 0.3 0.4 Direct 0.00 0.00 Bilirubin Indirect 0.3 0.4 Bilirubin Aspartate Amino 104 H 91 H Transf (AST/SGO T) Alanine 85 H 78 H Aminotransferas e (ALT/SGPT) Alkaline 52 66 Phosphatase Total Protein 5.8 L 5.8 L Albumin 3.1 L 3.0 L Globulin 2.70 2.80 Albumin/Globuli 1.14 1.07 n Ratio Blood Gas Blood Specimen arterial Source Arterial Blood 02/05/2019 12:3 Date Drawn 0:56 AM Arterial Blood 7.298 *L pH (Temp corrected ) Arterial Blood 26.3 L pCO2 (Temp correct) Arterial Blood 92.0 pO2 (Temp corrected ) Arterial Blood 12.9 L HCO3 Arterial Blood -12.2 L Base Excess Arterial Blood 97.7 Oxygen Saturati on Cristino Test ACCEPTAB Arterial Blood Left Radial Gas Puncture Site Arterial 0.2 Blood Carboxyhe moglobin Arterial Blood 0.2 Methemoglobin Blood Gas A-a 454.5 H O2 Differential Oxyhemoglobin 97.3 Percent Blood Gas 35.1 Temperature Blood Gas 26.0 Respiration Rate Blood Gas 26 Actual Respiration Rat e Blood Gas VENT - AC Modality FiO2 80.0 Blood Gas Tidal 550.0 Volume Blood Gas Low 5.0 PEEP Setting Blood Gas 36.0 Inspiratory Pressure Blood Gas A.RENO R Critical Value N Read Back Blood Gas MR Notified Whom Blood Gas 02/05/2019 12:4 Notified Time 4:21 AM Bedside Glucose 115 Segmented 68 Neutrophils % (Manual) Band 26 H Neutrophils % (Manual) Lymphocytes % 4 L (Manual) Monocytes % 2 (Manual) Neutrophils # 23.6 H (Manual) Band 8.0 H Neutrophils # Lymphocytes 1.2 (Manual) Monocytes # 0.6 (Manual) Platelet NORMAL Estimate Poikilocytosis 3+ Anisocytosis 1+ Activated 27.9 Partial Thrombo plast Time Mix PTT Normal Plasma Immediat e Mix PTT Normal Plasma 1 Hour Fibrinogen 401.0 # Amylase Level 872 #H Lipase 72 Test 02/05/19 06:00 02/05/19 06:20 02/05/19 08:21 Blood Gas Blood arterial Specimen Source Arterial Blood 02/05/2019 6:10: Date Drawn 00 AM Arterial Blood 7.325 L pH (Temp corrected ) Arterial Blood 26.9 L pCO2 (Temp correct) Arterial Blood 123.8 H pO2 (Temp corrected ) Arterial Blood 13.8 L HCO3 Arterial Blood -10.6 L Base Excess Arterial Blood 98.6 H Oxygen Saturati on Cristino Test ACCEPTAB Arterial Blood Left Radial Gas Puncture Site Arterial 0.2 Blood Carboxyhe moglobin Arterial Blood 0.3 Methemoglobin Blood Gas A-a 420.1 H O2 Differential Oxyhemoglobin 98.1 Percent Blood Gas 36.1 Temperature Blood Gas 20.0 Respiration Rate Blood Gas 26 Actual Respiration Rat e Blood Gas VENT - AC Modality FiO2 80.0 Blood Gas Tidal 550.0 Volume Blood Gas Low 5.0 PEEP Setting Blood Gas TM Notified Whom Blood Gas 02/05/2019 6:22: Notified Time 00 AM Bedside Glucose 128 70 Exam/Review of Systems Exam Vitals Vital Signs Date Temp Pulse Resp B/P (MAP) Pulse Ox O2 O2 Flow FiO2 Time Delivery Rate 02/05/19 85 26 110/90 100 09:15 (97) 02/05/19 96.4 09:00 02/05/19 70 08:00 02/04/19 Mechanical 20:15 Ventilator Intake and Output 02/04/19 02/04/19 02/05/19 1515:00 23:00 07:00 IntakeIntake Total 37.5 ml 735.61 ml 1291.375 ml OutputOutput Total 338 ml 2036 ml BalanceBalance 37.5 ml 397.61 ml -744.625 ml Exam GENERAL: Intubated on fentanyl drip and pressors X2 HEENT: Mildly dilated pupils with no light reflex, Intubated, Vent settings noted , LUNGS: diffusely diminished HEART: S1, S2. No murmur, gallops or rubs. ABDOMEN: Soft, non distended, Normoactive bowel sounds. GENITOURINARY: Normal female external genitalia, Ruiz to bedside drainage EXTREMITIES: NO edema bilaterally, also some hand edema bilaterally NEUROLOGIC: The patient is currently sedated. Results Results 24hrs Laboratory Tests Test 02/04/19 11:37 02/04/19 11:39 02/04/19 11:40 02/04/19 11:42 White Blood 15.9 H Count Red Blood Count 5.23 Hemoglobin 15.4 Hematocrit 50.1 H Mean 95.8 Corpuscular Volume Mean 29.4 Corpuscular Hemoglobin Mean 30.7 L Corpuscular Hemoglobin Conc ent Red Cell 13.4 Distribution Width Platelet Count 274 Mean Platelet 11.3 H Volume Immature 9.500 H Granulocytes % Neutrophils % Segmented 50 Neutrophils % (Manual) Band 15 H Neutrophils % (Manual) Lymphocytes % Lymphocytes % 28 (Manual) Reactive 2 H Lymphocytes % (Manual) Monocytes % Monocytes % 3 (Manual) Eosinophils % Eosinophils % 1 (Manual) Basophils % Metamyelocytes 1 H % (manual) Nucleated Red 0.1 H Blood Cells % Immature 1.500 H Granulocytes # Neutrophils # Neutrophils # 8.3 H (Manual) Band 2.3 H Neutrophils # Lymphocytes 4.4 H (Manual) Lymphocytes # Reactive 0.3 H Lymphocytes # Monocytes # Monocytes # 0.4 (Manual) Eosinophils # Basophils # Metamyelocytes 0.1 H # Nucleated Red Blood Cells # Platelet NORMAL Estimate Anisocytosis 1+ Microcytosis 1+ Prothrombin 17.3 H Time Prothrombin 1.4 Time Ratio INR 1.40 International Normalized Rati o Activated 50.7 H Partial Thrombo plast Time Sodium Level 136 Potassium Level 2.8 *L Chloride Level 99 Carbon Dioxide 16 L Level Anion Gap 21 H Blood Urea 10 Nitrogen Creatinine 0.87 Est Glomerular > 60 Filtrat Rate mL/min Glucose Level 443 *H Hemoglobin A1c 4.9 Calcium Level 11.2 H Total Bilirubin 0.3 Direct 0.00 Bilirubin Indirect 0.3 Bilirubin Aspartate Amino 136 H Transf (AST/SGO T) Alanine 98 H Aminotransferas e (ALT/SGPT) Alkaline 67 Phosphatase Troponin I 0.207 *H Total Protein 5.7 L Albumin 3.1 L Globulin 2.60 Albumin/Globuli 1.19 n Ratio Lipase 214 Serum HCG, NEGATIVE Qualitative Bedside Glucose 416 *H Blood Gas Blood Specimen arterial Source Arterial Blood 02/04/2019 12:1 Date Drawn 5:01 PM Arterial Blood 6.989 *L pH (Temp corrected ) Arterial Blood 67.8 H pCO2 (Temp correct) Arterial Blood 72.1 L pO2 (Temp corrected ) Arterial Blood 15.9 L HCO3 Arterial Blood -16.6 L Base Excess Arterial Blood 86.9 L Oxygen Saturati on Cristino Test ACCEPTAB Arterial Blood Left Radial Gas Puncture Site Arterial 0.3 Blood Carboxyhe moglobin Arterial Blood 0.3 Methemoglobin Blood Gas A-a 573.1 H O2 Differential Oxyhemoglobin 86.4 L Percent Blood Gas 37.0 Temperature Blood Gas 16.0 Respiration Rate Blood Gas 16 Actual Respiration Rat e Blood Gas VENT - AC Modality FiO2 100.0 Blood Gas Tidal 500.0 Volume Blood Gas High 5.0 PEEP Setting Blood [facility] Critical Value Read Back Blood Gas T [facility]ANLEYRICARDA [facility] Notified Whom Blood Gas 02/04/2019 12:2 Notified Time 2:46 PM POC Venous 10.0 *H Lactate Test 02/04/19 12:13 02/04/19 12:21 02/04/19 16:01 02/04/19 16:05 Urine Color YELLOW Urine Clarity SLIGHTLY CLOUDY A Urine pH 6.0 Urine Specific 1.015 [place] Urine Ketones NEGATIVE Urine Nitrite NEGATIVE Urine Bilirubin NEGATIVE Urine NEGATIVE Urobilinogen Urine Leukocyte NEGATIVE Esterase Urine 2 Microscopic RBC Urine 3 Microscopic WBC Urine Squamous FEW Epithelial Cell s Urine Mucus FEW A Urine NEGATIVE Hemoglobin Urine Glucose NEGATIVE Urine Total 2+ H Protein POC Beta HCG, NEGATIVE Qualitative Bedside Glucose 148 Urine Opiates NEGATIVE Screen Urine NEGATIVE Barbiturates Urine NEGATIVE Amphetamines Screen Urine NEGATIVE Benzodiazepines Screen Urine Cocaine NEGATIVE Screen Urine NEGATIVE Cannabinoids Test 02/04/19 16:21 02/04/19 16:43 02/04/19 17:40 02/04/19 17:55 Lactic Acid 5.5 *H Level Bedside Glucose 119 128 Urine POSITIVE Test Test 02/04/19 18:00 02/04/19 19:01 02/04/19 20:32 02/04/19 23:11 Prothrombin 14.7 Time Prothrombin 1.1 Time Ratio INR 1.14 International Normalized Rati o Activated 30.2 Partial Thrombo plast Time Fibrinogen 281.0 D-Dimer 9244.24 H D-Dimer Comment Sodium Level 142 Potassium Level 4.5 Chloride Level 114 H Carbon Dioxide 17 L Level Anion Gap 11 # Blood Urea 14 Nitrogen Creatinine 1.11 H Est Glomerular 56 L Filtrat Rate mL/min Glucose Level 132 # Calcium Level 9.2 Phosphorus 3.5 Level Magnesium Level 1.8 Total Bilirubin 0.3 Direct 0.00 Bilirubin Indirect 0.3 Bilirubin Aspartate Amino 187 H Transf (AST/SGO T) Alanine 105 H Aminotransferas e (ALT/SGPT) Alkaline 76 Phosphatase Creatine Kinase 266 H Creatine Kinase 7.9 Index Creatinine 20.90 H Kinase MB (Mass) Troponin I 10.000 *H Total Protein 6.4 Albumin 3.3 Globulin 3.10 Albumin/Globuli 1.06 n Ratio Amylase Level 343 H Beta HCG, < 2.4 Quantitative Bedside Glucose 132 141 Blood Gas Blood Specimen arterial Source Arterial Blood 02/04/2019 6:41 Date Drawn :00 PM Arterial Blood 7.160 *L pH (Temp corrected ) Arterial Blood 45.0 pCO2 (Temp correct) Arterial Blood 73.3 L pO2 (Temp corrected ) Arterial Blood 15.7 L HCO3 Arterial Blood -12.8 L Base Excess Arterial Blood 92.7 L Oxygen Saturati on Cristino Test ACCEPTAB Arterial Blood Right Radial Gas Puncture Site Arterial 0.3 Blood Carboxyhe moglobin Arterial Blood 0.3 Methemoglobin Blood Gas A-a 594.7 H O2 Differential Oxyhemoglobin 92.1 L Percent Blood Gas 37.0 Temperature Blood Gas 20.0 Respiration Rate Blood Gas 20 Actual Respiration Rat e Blood Gas VENT - AC Modality FiO2 100.0 Blood Gas Tidal 500.0 Volume Blood Gas Low 5.0 PEEP Setting Blood Gas ANNE MARIE SANDOVALCA Critical Value L Read Back Blood Gas RT Notified Whom Blood Gas 02/04/2019 6:53 Notified Time :00 PM Test 02/04/19 23:40 02/05/19 00:10 02/05/19 01:41 02/05/19 05:16 White Blood 24.1 #H 31.0 #H Count Red Blood Count 5.44 H 5.29 Hemoglobin 15.9 15.5 Hematocrit 50.3 H 49.1 H Mean 92.5 92.8 Corpuscular Volume Mean 29.2 29.3 Corpuscular Hemoglobin Mean 31.6 L 31.6 L Corpuscular Hemoglobin Conc ent Red Cell 13.8 14.1 Distribution Width Platelet Count 261 261 Mean Platelet 10.5 H 10.7 H Volume Immature 0.600 H 0.900 H Granulocytes % Neutrophils % 90.3 H Lymphocytes % 4.2 L Monocytes % 4.4 Eosinophils % 0.0 Basophils % 0.5 Nucleated Red 0.0 0.0 Blood Cells % Immature 0.150 H 0.290 H Granulocytes # Neutrophils # 21.7 H Lymphocytes # 1.0 Monocytes # 1.1 H Eosinophils # 0.0 Basophils # 0.1 Nucleated Red 0.0 Blood Cells # Sodium Level 142 150 H Potassium Level 4.4 4.8 Chloride Level 116 H 125 H Carbon Dioxide 15 L 16 L Level Anion Gap 11 9 Blood Urea 16 15 Nitrogen Creatinine 1.23 H 1.02 H Est Glomerular 50 L > 60 Filtrat Rate mL/min Glucose Level 129 132 Lactic Acid 6.7 *H 6.4 *H Level Calcium Level 8.9 9.3 Phosphorus 2.0 #L 2.1 L Level Magnesium Level 1.7 1.8 Total Bilirubin 0.3 0.4 Direct 0.00 0.00 Bilirubin Indirect 0.3 0.4 Bilirubin Aspartate Amino 104 H 91 H Transf (AST/SGO T) Alanine 85 H 78 H Aminotransferas e (ALT/SGPT) Alkaline 52 66 Phosphatase Total Protein 5.8 L 5.8 L Albumin 3.1 L 3.0 L Globulin 2.70 2.80 Albumin/Globuli 1.14 1.07 n Ratio Blood Gas Blood Specimen arterial Source Arterial Blood 02/05/2019 12:3 Date Drawn 0:56 AM Arterial Blood 7.298 *L pH (Temp corrected ) Arterial Blood 26.3 L pCO2 (Temp correct) Arterial Blood 92.0 pO2 (Temp corrected ) Arterial Blood 12.9 L HCO3 Arterial Blood -12.2 L Base Excess Arterial Blood 97.7 Oxygen Saturati on Cristino Test ACCEPTAB Arterial Blood Left Radial Gas Puncture Site Arterial 0.2 Blood Carboxyhe moglobin Arterial Blood 0.2 Methemoglobin Blood Gas A-a 454.5 H O2 Differential Oxyhemoglobin 97.3 Percent Blood Gas 35.1 Temperature Blood Gas 26.0 Respiration Rate Blood Gas 26 Actual Respiration Rat e Blood Gas VENT - AC Modality FiO2 80.0 Blood Gas Tidal 550.0 Volume Blood Gas Low 5.0 PEEP Setting Blood Gas 36.0 Inspiratory Pressure Blood Gas A.RENO R Critical Value N Read Back Blood Gas MR Notified Whom Blood Gas 02/05/2019 12:4 Notified Time 4:21 AM Bedside Glucose 115 Segmented 68 Neutrophils % (Manual) Band 26 H Neutrophils % (Manual) Lymphocytes % 4 L (Manual) Monocytes % 2 (Manual) Neutrophils # 23.6 H (Manual) Band 8.0 H Neutrophils # Lymphocytes 1.2 (Manual) Monocytes # 0.6 (Manual) Platelet NORMAL Estimate Poikilocytosis 3+ Anisocytosis 1+ Activated 27.9 Partial Thrombo plast Time Mix PTT Normal Plasma Immediat e Mix PTT Normal Plasma 1 Hour Fibrinogen 401.0 # Amylase Level 872 #H Lipase 72 Test 02/05/19 06:00 02/05/19 06:20 02/05/19 08:21 Blood Gas Blood arterial Specimen Source Arterial Blood 02/05/2019 6:10: Date Drawn 00 AM Arterial Blood 7.325 L pH (Temp corrected ) Arterial Blood 26.9 L pCO2 (Temp correct) Arterial Blood 123.8 H pO2 (Temp corrected ) Arterial Blood 13.8 L HCO3 Arterial Blood -10.6 L Base Excess Arterial Blood 98.6 H Oxygen Saturati on Cristino Test ACCEPTAB Arterial Blood Left Radial Gas Puncture Site Arterial 0.2 Blood Carboxyhe moglobin Arterial Blood 0.3 Methemoglobin Blood Gas A-a 420.1 H O2 Differential Oxyhemoglobin 98.1 Percent Blood Gas 36.1 Temperature Blood Gas 20.0 Respiration Rate Blood Gas 26 Actual Respiration Rat e Blood Gas VENT - AC Modality FiO2 80.0 Blood Gas Tidal 550.0 Volume Blood Gas Low 5.0 PEEP Setting Blood Gas TM Notified Whom Blood Gas 02/05/2019 6:22: Notified Time 00 AM Bedside Glucose 128 70 Medications Medication Current Medications Norepinephrine 250 ml @ 1.875 mls/ hr TITRATE IV Last administered on 02/04/19at 18:04; Admin Dose 37.5 MLS/HR; Start 02/04/19 at 12:00 Miscellaneous Information 1 ea NOTE XX ; Start 02/04/19 at 15:00 Glucose (Glutose) 15 gm Q15M PRN PO DECREASED GLUCOSE; Start 02/04/19 at 15:00 Glucose (Glutose) 22.5 gm Q15M PRN PO DECREASED GLUCOSE; Start 02/04/19 at 15:00 Dextrose (D50w Syringe) 25 ml Q15M PRN IV DECREASED GLUCOSE; Start 02/04/19 at 15:00 Dextrose (D50w Syringe) 50 ml Q15M PRN IV DECREASED GLUCOSE; Start 02/04/19 at 15:00 Glucagon (Glucagen) 1 mg Q15M PRN IM DECREASED GLUCOSE; Start 02/04/19 at 15:00 Glucose (Glutose) 15 gm Q15M PRN BUCCAL DECREASED GLUCOSE; Start 02/04/19 at 15:00 Acetaminophen (Tylenol Supp) 650 mg Q4H PRN MD TEMP > 37C; Start 02/04/19 at 17:30 Acetaminophen (Tylenol Liquid) 650 mg Q4H PRN PO TEMP > 37C; Start 02/04/19 at 17:30 Acetaminophen (Tylenol Supp) 500 mg Q6H MD ; Start 02/05/19 at 17:30 Acetaminophen (Tylenol Liquid) 500 mg Q6H PO ; Start 02/05/19 at 17:30 Meperidine HCl (Demerol) 12.5 mg Q4H PRN IV POST OPERATIVE SHIVERING; Start 02/04/19 at 17:30 Meperidine HCl (Demerol) 25 mg Q4H PRN IV POST OPERATIVE SHIVERING; Start 02/04/19 at 17:30 Eye Lubricant (Akwa Oint) 1 applic Q6 BOTH EYES Last administered on 02/05/19 06:23; Admin Dose 1 APPLIC; Start 02/04/19 at 18:00 Eye Lubricant (Artificial Tears Oph) 2 drop Q6 BOTH EYES Last administered on 02/05/19 06:23; Admin Dose 2 DROP; Start 02/04/19 at 18:00 Midazolam HCl 50 ml @ 1 mls/hr TITRATE IV Last administered on 02/05/19 10:16; Admin Dose 4 MLS/HR; Start 02/04/19 at 22:30 Fentanyl 100 ml @ 2.5 mls/hr TITRATE IV Last administered on 02/05/19 00:05; Admin Dose 2.5 MLS/HR; Start 02/04/19 at 22:30 Diagnostic Test (Pha) (Accu-Chek) 1 ea Q4 XX Last administered on 02/05/19 08:22; Admin Dose 1 EA; Start 02/05/19 at 00:00 Phenylephrine HCl 40 mg/Dextrose 250 ml @ 37.5 mls/hr TITRATE IV Last administered on 02/05/19 10:31; Admin Dose 45 MLS/HR; Start 02/05/19 at 00:30 Levetiracetam 100 ml @ 400 mls/hr Q12 IVPB Last administered on 02/05/19 08:43; Admin Dose 400 MLS/HR; Start 02/05/19 at 09:00 Dextrose/Sodium Chloride 1,000 ml @ 80 mls/hr [id number] IV Last administered on 02/05/19at 10:16; Admin Dose 80 MLS/HR; Start 02/05/19 at 09:30 Piperacillin Sod/ Tazobactam Sod 100 ml @ 200 mls/hr Q8 IVPB Last administered on 02/05/19at 10:16; Admin Dose 200 MLS/HR; Start 02/05/19 at 09:30 GUERO WILLOUGHBY Feb 05, 2019 11:01
--- NOTE | 2019-02-05 12:05 | CONS ---
Assessment/Plan Assessment/Plan Hospital Course 33 yo F with reported Hx of HTN who is admitted to the [facility] ICU following reported PEA arrest. CT head revealed extensive basal cistern SAH Now undergoing targeted temperature management... She was noted to have spells concerning for seizure... for which neurology is consulted. The clinical picture is consistent with provoked seizures in the context of acute ICH. 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 EEG is without evidence of subclinical seizures. P: Await neurosurgical recommendations Consider transfer to higher level of care for consideration of endovascular therapies and close vascular surveillance, pending goals of care conversations w/ decision makers.. OK to cont Keppra as scheduled for now Ativan iv prn prolonged seizure of cluster Add Nimodipine 60mg q4hr x 21 days...with BP augmentation as necessary Goal euvolemia, with NS as necessary Avoid antiplatelets/anticoagulants Other medical management and supportive care per primary Will follow clinically Consultation Date/Type/Reason Admit Date/Time Type of Consult Neurology Reason for Consultation seizure management Requesting Provider: GUERO WILLOUGHBY Date/Time of Note DATE: 02/05/19 TIME: 12:05 Hx of Present Illness 33 yo F with hx of HTN who presented to the ED with ams. History was obtained from family and chart review as pt is currently in a critical state and therefore unable to contribute The pt is currently in the ICU, intubated, on targeted temp management with goal temp 36C. A head CT was obtained and is notable for diffuse SAH. It is additionally elsewhere noted: Hx of Present Illness 33-year-old female who has been complaining of headaches for the last 3 days who went to sleep earlier today by her family and was found to have new onset seizures. EMS was called on by the time EMS arrived to the home, patient was unresponsive with PEA. She was resuscitated via ACLS with return of spontaneous circulation. Airway was placed at the scene by EMS for patient May being endotracheally intubated in the intensive in the emergency room. Patient is also requiring pressor support at this time. A CT scan of the brain is showing subarachnoid hemorrhage. Patient does not have a history of substance use as far as the family knows but she does have a history of alcohol use occasionally. Hyperglycemia is also noted with there is no history of diabetes mellitus. Patient does have 3 small children at home. She does have a history of high blood pressure she does have a history of high blood pressure Subjective hx not possible: pt critical status Exam/Review of Systems Exam Vitals Vital Signs Date Temp Pulse Resp B/P (MAP) Pulse Ox O2 O2 Flow FiO2 Time Delivery Rate 02/05/19 86 26 100 70 11:00 02/05/19 111/80 Mechanical 11:00 (90) Ventilator 02/05/19 96.4 09:00 Intake and Output 02/04/19 02/04/19 02/05/19 1515:00 23:00 07:00 IntakeIntake Total 37.5 ml 735.61 ml 1291.375 ml OutputOutput Total 338 ml 2036 ml BalanceBalance 37.5 ml 397.61 ml -744.625 ml Exam PE: Gen Appearance: No Apparent Distress HEENT: Intubated Cardiovascular: Regular rate Abdomen: Soft Extremities: Dry NE: The patient was comatose. Cranial nerve examination was limited by mental status. Pupils were fix and dilated. There was no afferent pupillary defect. Funduscopic examination was limited. Face was grossly symmetric, w/ absent corneal and cough reflexes. Tone was normal. Muscle bulk was normal. I did not see fasciculations. The patient did not withdraw to noxious stimulation. Coordination and gait testing was limited by mental status. Arm and leg reflexes were symmetric. Hidalgo's sign was absent. Plantar responses were mute. Results Result Diagram: 02/05/19 1136 02/05/19 0516 Results 24hrs Laboratory Tests Test 02/04/19 12:13 02/04/19 12:21 02/04/19 16:01 02/04/19 16:05 Urine Color YELLOW Urine Clarity SLIGHTLY CLOUDY A Urine pH 6.0 Urine Specific 1.015 [place] Urine Ketones NEGATIVE Urine Nitrite NEGATIVE Urine Bilirubin NEGATIVE Urine NEGATIVE Urobilinogen Urine Leukocyte NEGATIVE Esterase Urine 2 Microscopic RBC Urine 3 Microscopic WBC Urine Squamous FEW Epithelial Cell s Urine Mucus FEW A Urine NEGATIVE Hemoglobin Urine Glucose NEGATIVE Urine Total 2+ H Protein POC Beta HCG, NEGATIVE Qualitative Bedside Glucose 148 Urine Opiates NEGATIVE Screen Urine NEGATIVE Barbiturates Urine NEGATIVE Amphetamines Screen Urine NEGATIVE Benzodiazepines Screen Urine Cocaine NEGATIVE Screen Urine NEGATIVE Cannabinoids Test 02/04/19 16:21 02/04/19 16:43 02/04/19 17:40 02/04/19 17:55 Lactic Acid 5.5 *H Level Bedside Glucose 119 128 Urine POSITIVE Test Test 02/04/19 18:00 02/04/19 19:01 02/04/19 20:32 02/04/19 23:11 Prothrombin 14.7 Time Prothrombin 1.1 Time Ratio INR 1.14 International Normalized Rati o Activated 30.2 Partial Thrombo plast Time Fibrinogen 281.0 D-Dimer 9244.24 H D-Dimer Comment Sodium Level 142 Potassium Level 4.5 Chloride Level 114 H Carbon Dioxide 17 L Level Anion Gap 11 # Blood Urea 14 Nitrogen Creatinine 1.11 H Est Glomerular 56 L Filtrat Rate mL/min Glucose Level 132 # Calcium Level 9.2 Phosphorus 3.5 Level Magnesium Level 1.8 Total Bilirubin 0.3 Direct 0.00 Bilirubin Indirect 0.3 Bilirubin Aspartate Amino 187 H Transf (AST/SGO T) Alanine 105 H Aminotransferas e (ALT/SGPT) Alkaline 76 Phosphatase Creatine Kinase 266 H Creatine Kinase 7.9 Index Creatinine 20.90 H Kinase MB (Mass) Troponin I 10.000 *H Total Protein 6.4 Albumin 3.3 Globulin 3.10 Albumin/Globuli 1.06 n Ratio Amylase Level 343 H Beta HCG, < 2.4 Quantitative Bedside Glucose 132 141 Blood Gas Blood Specimen arterial Source Arterial Blood 02/04/2019 6:41 Date Drawn :00 PM Arterial Blood 7.160 *L pH (Temp corrected ) Arterial Blood 45.0 pCO2 (Temp correct) Arterial Blood 73.3 L pO2 (Temp corrected ) Arterial Blood 15.7 L HCO3 Arterial Blood -12.8 L Base Excess Arterial Blood 92.7 L Oxygen Saturati on Cristino Test ACCEPTAB Arterial Blood Right Radial Gas Puncture Site Arterial 0.3 Blood Carboxyhe moglobin Arterial Blood 0.3 Methemoglobin Blood Gas A-a 594.7 H O2 Differential Oxyhemoglobin 92.1 L Percent Blood Gas 37.0 Temperature Blood Gas 20.0 Respiration Rate Blood Gas 20 Actual Respiration Rat e Blood Gas VENT - AC Modality FiO2 100.0 Blood Gas Tidal 500.0 Volume Blood Gas Low 5.0 PEEP Setting Blood Gas ANNE MARIE DANIELLENGCA Critical Value L Read Back Blood Gas RT Notified Whom Blood Gas 02/04/2019 6:53 Notified Time :00 PM Test 02/04/19 23:40 02/05/19 00:10 02/05/19 01:41 02/05/19 05:16 White Blood 24.1 #H 31.0 #H Count Red Blood Count 5.44 H 5.29 Hemoglobin 15.9 15.5 Hematocrit 50.3 H 49.1 H Mean 92.5 92.8 Corpuscular Volume Mean 29.2 29.3 Corpuscular Hemoglobin Mean 31.6 L 31.6 L Corpuscular Hemoglobin Conc ent Red Cell 13.8 14.1 Distribution Width Platelet Count 261 261 Mean Platelet 10.5 H 10.7 H Volume Immature 0.600 H 0.900 H Granulocytes % Neutrophils % 90.3 H Lymphocytes % 4.2 L Monocytes % 4.4 Eosinophils % 0.0 Basophils % 0.5 Nucleated Red 0.0 0.0 Blood Cells % Immature 0.150 H 0.290 H Granulocytes # Neutrophils # 21.7 H Lymphocytes # 1.0 Monocytes # 1.1 H Eosinophils # 0.0 Basophils # 0.1 Nucleated Red 0.0 Blood Cells # Sodium Level 142 150 H Potassium Level 4.4 4.8 Chloride Level 116 H 125 H Carbon Dioxide 15 L 16 L Level Anion Gap 11 9 Blood Urea 16 15 Nitrogen Creatinine 1.23 H 1.02 H Est Glomerular 50 L > 60 Filtrat Rate mL/min Glucose Level 129 132 Lactic Acid 6.7 *H 6.4 *H Level Calcium Level 8.9 9.3 Phosphorus 2.0 #L 2.1 L Level Magnesium Level 1.7 1.8 Total Bilirubin 0.3 0.4 Direct 0.00 0.00 Bilirubin Indirect 0.3 0.4 Bilirubin Aspartate Amino 104 H 91 H Transf (AST/SGO T) Alanine 85 H 78 H Aminotransferas e (ALT/SGPT) Alkaline 52 66 Phosphatase Total Protein 5.8 L 5.8 L Albumin 3.1 L 3.0 L Globulin 2.70 2.80 Albumin/Globuli 1.14 1.07 n Ratio Blood Gas Blood arterial Specimen Source Arterial Blood 02/05/2019 12:30 Date Drawn :56 AM Arterial Blood 7.298 *L pH (Temp corrected ) Arterial Blood 26.3 L pCO2 (Temp correct) Arterial Blood 92.0 pO2 (Temp corrected ) Arterial Blood 12.9 L HCO3 Arterial Blood -12.2 L Base Excess Arterial Blood 97.7 Oxygen Saturati on Cristino Test ACCEPTAB Arterial Blood Left Radial Gas Puncture Site Arterial 0.2 Blood Carboxyhe moglobin Arterial Blood 0.2 Methemoglobin Blood Gas A-a 454.5 H O2 Differential Oxyhemoglobin 97.3 Percent Blood Gas 35.1 Temperature Blood Gas 26.0 Respiration Rate Blood Gas 26 Actual Respiration Rat e Blood Gas VENT - AC Modality FiO2 80.0 Blood Gas Tidal 550.0 Volume Blood Gas Low 5.0 PEEP Setting Blood Gas 36.0 Inspiratory Pressure Blood Gas CAITLIN OLMEDO Critical Value Read Back Blood Gas MR Notified Whom Blood Gas 02/05/2019 12:44 Notified Time :21 AM Bedside Glucose 115 Segmented 68 Neutrophils % (Manual) Band 26 H Neutrophils % (Manual) Lymphocytes % 4 L (Manual) Monocytes % 2 (Manual) Neutrophils # 23.6 H (Manual) Band 8.0 H Neutrophils # Lymphocytes 1.2 (Manual) Monocytes # 0.6 (Manual) Platelet NORMAL Estimate Poikilocytosis 3+ Anisocytosis 1+ Activated 27.9 Partial Thrombo plast Time Mix PTT Normal Plasma Immediat e Mix PTT Normal Plasma 1 Hour Fibrinogen 401.0 # Amylase Level 872 #H Lipase 72 Test 02/05/19 06:00 02/05/19 06:20 02/05/19 08:21 02/05/19 11:36 Blood Gas Blood arterial Specimen Source Arterial Blood 02/05/2019 6:10: Date Drawn 00 AM Arterial Blood 7.325 L pH (Temp corrected ) Arterial Blood 26.9 L pCO2 (Temp correct) Arterial Blood 123.8 H pO2 (Temp corrected ) Arterial Blood 13.8 L HCO3 Arterial Blood -10.6 L Base Excess Arterial Blood 98.6 H Oxygen Saturati on Cristino Test ACCEPTAB Arterial Blood Left Radial Gas Puncture Site Arterial 0.2 Blood Carboxyhe moglobin Arterial Blood 0.3 Methemoglobin Blood Gas A-a 420.1 H O2 Differential Oxyhemoglobin 98.1 Percent Blood Gas 36.1 Temperature Blood Gas 20.0 Respiration Rate Blood Gas 26 Actual Respiration Rat e Blood Gas VENT - AC Modality FiO2 80.0 Blood Gas Tidal 550.0 Volume Blood Gas Low 5.0 PEEP Setting Blood Gas TM Notified Whom Blood Gas 02/05/2019 6:22: Notified Time 00 AM Bedside Glucose 128 70 White Blood 22.3 #H Count Red Blood Count 4.91 Hemoglobin 14.4 Hematocrit 43.7 Mean 89.0 Corpuscular Volume Mean 29.3 Corpuscular Hemoglobin Mean 33.0 Corpuscular Hemoglobin Conc ent Red Cell 14.3 Distribution Width Platelet Count 199 # Mean Platelet 10.9 H Volume Immature 0.800 H Granulocytes % Neutrophils % Lymphocytes % Monocytes % Eosinophils % Basophils % Nucleated Red 0.0 Blood Cells % Immature 0.170 H Granulocytes # Neutrophils # Lymphocytes # Monocytes # Eosinophils # Basophils # Nucleated Red Blood Cells # Medications Medication Current Medications Norepinephrine 250 ml @ 1.875 mls/ hr TITRATE IV Last administered on 02/04/19at 18:04; Admin Dose 37.5 MLS/HR; Start 02/04/19 at 12:00 Miscellaneous Information 1 ea NOTE XX ; Start 02/04/19 at 15:00 Glucose (Glutose) 15 gm Q15M PRN PO DECREASED GLUCOSE; Start 02/04/19 at 15:00 Glucose (Glutose) 22.5 gm Q15M PRN PO DECREASED GLUCOSE; Start 02/04/19 at 15:00 Dextrose (D50w Syringe) 25 ml Q15M PRN IV DECREASED GLUCOSE; Start 02/04/19 at 15:00 Dextrose (D50w Syringe) 50 ml Q15M PRN IV DECREASED GLUCOSE; Start 02/04/19 at 15:00 Glucagon (Glucagen) 1 mg Q15M PRN IM DECREASED GLUCOSE; Start 02/04/19 at 15:00 Glucose (Glutose) 15 gm Q15M PRN BUCCAL DECREASED GLUCOSE; Start 02/04/19 at 15:00 Acetaminophen (Tylenol Supp) 650 mg Q4H PRN [place] TEMP > 37C; Start 02/04/19 at 17:30 Acetaminophen (Tylenol Liquid) 650 mg Q4H PRN PO TEMP > 37C; Start 02/04/19 at 17:30 Acetaminophen (Tylenol Supp) 500 mg Q6H [place] ; Start 02/05/19 at 17:30 Acetaminophen (Tylenol Liquid) 500 mg Q6H PO ; Start 02/05/19 at 17:30 Meperidine HCl (Demerol) 12.5 mg Q4H PRN IV POST OPERATIVE SHIVERING; Start 02/04/19 at 17:30 Meperidine HCl (Demerol) 25 mg Q4H PRN IV POST OPERATIVE SHIVERING; Start 02/04/19 at 17:30 Eye Lubricant (Akwa Oint) 1 applic Q6 BOTH EYES Last administered on 02/05/19 06:23; Admin Dose 1 APPLIC; Start 02/04/19 at 18:00 Eye Lubricant (Artificial Tears Oph) 2 drop Q6 BOTH EYES Last administered on 02/05/19 06:23; Admin Dose 2 DROP; Start 02/04/19 at 18:00 Midazolam HCl 50 ml @ 1 mls/hr TITRATE IV Last administered on 02/05/19 10:16; Admin Dose 4 MLS/HR; Start 02/04/19 at 22:30 Fentanyl 100 ml @ 2.5 mls/hr TITRATE IV Last administered on 02/05/19 00:05; Admin Dose 2.5 MLS/HR; Start 02/04/19 at 22:30 Diagnostic Test (Pha) (Accu-Chek) 1 ea Q4 XX Last administered on 02/05/19 08:22; Admin Dose 1 EA; Start 02/05/19 at 00:00 Phenylephrine HCl 40 mg/Dextrose 250 ml @ 37.5 mls/hr TITRATE IV Last administered on 02/05/19 10:31; Admin Dose 45 MLS/HR; Start 02/05/19 at 00:30 Levetiracetam 100 ml @ 400 mls/hr Q12 IVPB Last administered on 02/05/19 08:43; Admin Dose 400 MLS/HR; Start 02/05/19 at 09:00 Dextrose/Sodium Chloride 1,000 ml @ 80 mls/hr [id number] IV Last administered on 02/05/19 10:16; Admin Dose 80 MLS/HR; Start 02/05/19 at 09:30 Piperacillin Sod/ Tazobactam Sod 100 ml @ 200 mls/hr Q8 IVPB Last administered on 02/05/19 10:16; Admin Dose 200 MLS/HR; Start 02/05/19 at 09:30 Past Medical History reviewed Home Meds Reported Medications Methyldopa* (Aldomet*) 500 Mg Tab, 500 MG PO TID, #90 TAB 02/04/19 Discontinued Reported Medications [Denies Meds] No Conflict Check 07/05/10 Medications Current Medications Norepinephrine 250 ml @ 1.875 mls/ hr TITRATE IV Last administered on 4/29/19at 18:04; Admin Dose 37.5 MLS/HR; Start 02/04/19 at 12:00 Miscellaneous Information 1 ea NOTE XX ; Start 02/04/19 at 15:00 Glucose (Glutose) 15 gm Q15M PRN PO DECREASED GLUCOSE; Start 02/04/19 at 15:00 Glucose (Glutose) 22.5 gm Q15M PRN PO DECREASED GLUCOSE; Start 02/04/19 at 15:00 Dextrose (D50w Syringe) 25 ml Q15M PRN IV DECREASED GLUCOSE; Start 02/04/19 at 15:00 Dextrose (D50w Syringe) 50 ml Q15M PRN IV DECREASED GLUCOSE; Start 02/04/19 at 15:00 Glucagon (Glucagen) 1 mg Q15M PRN IM DECREASED GLUCOSE; Start 02/04/19 at 15:00 Glucose (Glutose) 15 gm Q15M PRN BUCCAL DECREASED GLUCOSE; Start 02/04/19 at 15:00 Acetaminophen (Tylenol Supp) 650 mg Q4H PRN [place] TEMP > 37C; Start 02/04/19 at 17:30 Acetaminophen (Tylenol Liquid) 650 mg Q4H PRN PO TEMP > 37C; Start 02/04/19 at 17:30 Acetaminophen (Tylenol Supp) 500 mg Q6H [place] ; Start 02/05/19 at 17:30 Acetaminophen (Tylenol Liquid) 500 mg Q6H PO ; Start 02/05/19 at 17:30 Meperidine HCl (Demerol) 12.5 mg Q4H PRN IV POST OPERATIVE SHIVERING; Start 02/04/19 at 17:30 Meperidine HCl (Demerol) 25 mg Q4H PRN IV POST OPERATIVE SHIVERING; Start 01/08 06/27 at 17:30 Eye Lubricant (Akwa Oint) 1 applic Q6 BOTH EYES Last administered on 02/05/19at 06:23; Admin Dose 1 APPLIC; Start 02/04/19 at 18:00 Eye Lubricant (Artificial Tears Oph) 2 drop Q6 BOTH EYES Last administered on 02/05/19at 06:23; Admin Dose 2 DROP; Start 02/04/19 at 18:00 Midazolam HCl 50 ml @ 1 mls/hr TITRATE IV Last administered on 02/05/19at 10:16; Admin Dose 4 MLS/HR; Start 02/04/19 at 22:30 Fentanyl 100 ml @ 2.5 mls/hr TITRATE IV Last administered on 02/05/19at 00:05; Admin Dose 2.5 MLS/HR; Start 02/04/19 at 22:30 Diagnostic Test (Pha) (Accu-Chek) 1 ea Q4 XX Last administered on 02/05/19 08:22; Admin Dose 1 EA; Start 02/05/19 at 00:00 Phenylephrine HCl 40 mg/Dextrose 250 ml @ 37.5 mls/hr TITRATE IV Last administered on 02/05/19at 10:31; Admin Dose 45 MLS/HR; Start 02/05/19 at 00:30 Levetiracetam 100 ml @ 400 mls/hr Q12 IVPB Last administered on 02/05/19 08:43; Admin Dose 400 MLS/HR; Start 02/05/19 at 09:00 Dextrose/Sodium Chloride 1,000 ml @ 80 mls/hr [id number] IV Last administered on 02/05/19 10:16; Admin Dose 80 MLS/HR; Start 02/05/19 at 09:30 Piperacillin Sod/ Tazobactam Sod 100 ml @ 200 mls/hr Q8 IVPB Last administered on 02/05/19 10:16; Admin Dose 200 MLS/HR; Start 02/05/19 at 09:30 Allergies: Coded Allergies: No Known Allergy (Verified , 02/04/19) Past Surgical History reviewed Past Surgical Hx: other (c section) Social History reviewed Alcohol Use: occasionally Smoking Status: Never smoker Drug Use: other (unk) CHRISTIN CASTELLANOS NP Feb 05, 2019 12:05 ANGELA BECK Feb 05, 2019 19:35
[2019-02-05] MEDS ORDERED: POTASSIUM CHLORIDE 100 ML IVPB ONE (14:00)
[2019-02-05] MEDS: DEXTROSE 5%-0.45% NACL 1,000 ML IV SCH ×2 (14:06→20:55)
[2019-02-05] MEDS: DESMOPRESSIN 4 MCG INJ IV SCH ×2 (14:13→23:32)
--- NOTE | 2019-02-05 16:57 | CONS ---
DATE OF ADMISSION: 02/04/2019 DATE OF CONSULTATION: 02/05/2019 REQUESTING PHYSICIAN: Dr. Willoughby. TYPE OF CONSULTATION: Nephrology was consulted. REASON FOR CONSULTATION: Hyponatremia evaluation for Diabetes insipidus. HISTORY OF PRESENT ILLNESS: This is a 33-year-old female with no significant past medical history wh o was brought in to [facility] emergency room after a cardiac arrest. The patient stated ov er the past several days, last 2 to 3 days, she has been having headaches. Where she was taking Tyle nol. Patient had no prior history of cerebral aneurysm, seizures, migraines. The patient was then f ound to be unresponsive at home. EMS services were called. The patient was transferred to [facility]. The patient was noted to be PEA in the field. She underwent ACLS procedure and had spontaneous return of circulation. In the emergency room, patient had CT scan of the brain whic h showed evidence of subarachnoid hemorrhage. The patient was intubated initiated on hypothermic pro tocol and admitted to the intensive care unit. The patient had an MRI of the brain which showed evid ence of intraventricular hemorrhage without hydrocephalus. No evidence of infarct, no midline shift. The patient also noted to have diffuse cerebellar and cerebral edema with adjacent sulci and acute subarachnoid hemorrhage. A CT angio of the brain was performed and showed evidence of dissection of the left vertebral artery with thrombosis with decreased diffuse cerebral edema. In the [facility] care unit, the patient has been hypotensive in shock and on pressor support and IV fluids. In terms of patient's renal history, on admission the patient noted to have a sodium level 136 mEq pe r liter. Over the course of the last 12 hours, the patient had copious amount of urinary output rang ing from 200 to 500 mL per hour. A urine osmolarity was obtained which showed a urine osmol 115 mEq per liter. PAST MEDICAL HISTORY: Possible history of hypertension. PAST SURGICAL HISTORY: Status post section. FAMILY HISTORY: No family history of . SOCIAL HISTORY: Does not drink, smoke, do drugs. MEDICATIONS: The patient's medications have been reviewed. ALLERGIES: NO KNOWN DRUG ALLERGIES. REVIEW OF SYSTEMS: Unable to do adequate review of systems. The patient is obtunded. Pertinent pos itives as obtained by reviewing medical records, speaking to hospital staff, stated in HPI, otherwise negative. PHYSICAL EXAMINATION: VITAL SIGNS: Blood pressure is 107/87, respiration 26, pulse 89, temperature 96.8. HEENT: Head is normocephalic. Pupils are dilated. Nonreactive. NECK: Supple. HEART: Regular rate. LUNGS: Show diminished breath sounds at base. ABDOMEN: Soft, nontender to palpation without guarding. EXTREMITIES: Negative for clubbing, cyanosis, no edema. DERMATOLOGIC: No rashes. MUSCULOSKELETAL: No joint effusions. NEUROLOGIC: Limited exam as the patient is obtunded and sedated. LABORATORY DATA: Has been reviewed. IMAGING STUDIES: Have been reviewed. 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 Patient's urine osmolarity is 150 mOsm/L, which is inappropriately low given the patient's severe hy pernatremia. The plan at this point is start the patient on desmopressin. Will give 2 mcg IV q.12h. We will monitor urine output closely. If urinary output does not improve, we will increase dose to 4 mcg IV q.12h. We will also start the patient on hypotonic fluid and monitor serial sodium levels. 2. Hypokalemia. Replete with potassium chloride. 3. Cardiac arrest. The patient is currently hypothermic protocol. Continue to monitor. 4. Acute subarachnoid hemorrhage secondary possibly from aneurysm rupture. The patient was seen by neurosurgery. We will monitor closely. 5. Ventilator-dependent respiratory failure. Vent settings and ABG was reviewed. Continue to monit or. 6. Acute encephalopathy secondary to acute hemorrhage. Continue to monitor. The patient has fixed and dilated pupils. Concerning for possible brain . Consider neurologic evaluation. 7. Shock, etiology may be neurogenic versus septic. Continue pressor support. Continue IV hydratio n. 8. Hypoglycemia. Continue current insulin regimen. 9. Seizure, new onset, likely due to anoxic injury. Continue medical management. Thank you, Dr. Willoughby, for this interesting consult. It will be a pleasure to follow patient with you t hroughout the hospital course. Please note I spent over 30 minutes of critical care time with this patient. Dictated By: TERE MELGAR/SARAH Conf#: [id number] DID#: [id number] CC: GUERO WILLOUGHBY MD; TERE KUNZ DO;*[facility]*
--- NOTE | 2019-02-05 17:24 | RADRPT ---
Vent Rate: 122 bpm RR Interval: 0 msec [place] Interval: 128 msec QRS Duration: 76 msec QT Interval: 352 msec QTC Interval: 501 msec P-R-T [place]: 36 - 76 - 136 degrees Sinus tachycardia Low voltage QRS Cannot rule out Anterior infarct , age undetermined Abnormal ECG Electronically Signed By: Steve Clifton
[2019-02-05] MEDS: ACETAMINOPHEN 650 MG SUPP PR SCH ×2 (17:30→23:30)
[2019-02-05] MEDS: ACETAMINOPHEN 650MG/20.3ML CUP PO SCH ×2 (17:30→23:34)
[2019-02-05] MEDS: POTASSIUM CHLORIDE 50 ML IVPB SCH ×2 (19:52→21:36)
[2019-02-05] MEDS ORDERED: PIPER-TAZO 3.375 GM IV (PMX) 100 ML IVPB SCH (22:00)
[2019-02-05] MEDS: DEXTROSE 5% 1,000 ML IV SCH (22:04)
--- NOTE | 2019-02-05 22:14 | CONS ---
Assessment/Plan Assessment/Plan Assessment/Plan (Daily) Exam consistent with brain . I recommend palliative care consultation. Consultation Date/Type/Reason Admit Date/Time Date of Consultation: Feb 05, 2019 Type of Consult Neurosurgery Date/Time of Note DATE: 02/05/19 TIME: 22:09 Hx of Present Illness 33 year old female found nonresponsive by sister, possible seizure, PEA per paramedics on arrival. CT and MRI show diffuse SAH without clear evidence of aneurysm or other vascular etiology. Patient with fixed and dilated pupils on arrival to ER. patient in coma unable to obtain Subjective hx not possible: pt non-verbal Past Medical History patient in coma unable to obtain Home Meds Reported Medications Methyldopa* (Aldomet*) 500 Mg Tab, 500 MG PO TID, #90 TAB 02/04/19 Discontinued Reported Medications [Denies Meds] No Conflict Check 07/05/10 Medications Current Medications Norepinephrine 250 ml @ 1.875 mls/ hr TITRATE IV Last administered on 02/04/19at 18:04; Admin Dose 37.5 MLS/HR; Start 02/04/19 at 12:00 Miscellaneous Information 1 ea NOTE XX ; Start 02/04/19 at 15:00 Glucose (Glutose) 15 gm Q15M PRN PO DECREASED GLUCOSE; Start 02/04/19 at 15:00 Glucose (Glutose) 22.5 gm Q15M PRN PO DECREASED GLUCOSE; Start 02/04/19 at 15:00 Dextrose (D50w Syringe) 25 ml Q15M PRN IV DECREASED GLUCOSE; Start 02/04/19 at 15:00 Dextrose (D50w Syringe) 50 ml Q15M PRN IV DECREASED GLUCOSE; Start 02/04/19 at 15:00 Glucagon (Glucagen) 1 mg Q15M PRN IM DECREASED GLUCOSE; Start 02/04/19 at 15:00 Glucose (Glutose) 15 gm Q15M PRN BUCCAL DECREASED GLUCOSE; Start 02/04/19 at 15:00 Acetaminophen (Tylenol Supp) 650 mg Q4H PRN CA TEMP > 37C; Start 02/04/19 at 17:30 Acetaminophen (Tylenol Liquid) 650 mg Q4H PRN PO TEMP > 37C; Start 02/04/19 at 17:30 Acetaminophen (Tylenol Supp) 500 mg Q6H CA ; Start 02/05/19 at 17:30 Acetaminophen (Tylenol Liquid) 500 mg Q6H PO ; Start 02/05/19 at 17:30 Meperidine HCl (Demerol) 12.5 mg Q4H PRN IV POST OPERATIVE SHIVERING; Start 02/04/19 at 17:30 Meperidine HCl (Demerol) 25 mg Q4H PRN IV POST OPERATIVE SHIVERING; Start 02/04/19 at 17:30 Eye Lubricant (Akwa Oint) 1 applic Q6 BOTH EYES Last administered on 02/05/19 17:53; Admin Dose 1 APPLIC; Start 02/04/19 at 18:00 Eye Lubricant (Artificial Tears Oph) 2 drop Q6 BOTH EYES Last administered on 02/05/19 17:53; Admin Dose 2 DROP; Start 02/04/19 at 18:00 Midazolam HCl 50 ml @ 1 mls/hr TITRATE IV Last administered on 02/05/19 10:16; Admin Dose 4 MLS/HR; Start 02/04/19 at 22:30 Fentanyl 100 ml @ 2.5 mls/hr TITRATE IV Last administered on 02/05/19 16:28; Admin Dose 5 MLS/HR; Start 02/04/19 at 22:30 Diagnostic Test (Pha) (Accu-Chek) 1 ea Q4 XX Last administered on 02/05/19 17:52; Admin Dose 1 EA; Start 02/05/19 at 00:00 Phenylephrine HCl 40 mg/Dextrose 250 ml @ 37.5 mls/hr TITRATE IV Last administered on 02/05/19 16:21; Admin Dose 30 MLS/HR; Start 02/05/19 at 00:30 Levetiracetam 100 ml @ 400 mls/hr Q12 IVPB Last administered on 02/05/19 20:44; Admin Dose 400 MLS/HR; Start 02/05/19 at 09:00 Piperacillin Sod/ Tazobactam Sod 100 ml @ 200 mls/hr Q8 IVPB Last administered on 02/05/19 21:58; Admin Dose 200 MLS/HR; Start 02/05/19 at 09:30 Desmopressin Acetate (Ddavp) 2 mcg BID IV Last administered on 02/05/19 14:13; Admin Dose 2 MCG; Start 02/05/19 at 14:30 Potassium Chloride 50 ml @ 25 mls/hr Q2H IVPB Last administered on 02/05/19at 21:36; Admin Dose 25 MLS/HR; Start 02/05/19 at 19:00; Stop 02/05/19 at 22:59 Nimodipine (Nimotop) 60 mg Q4 NGT ; Start 02/05/19 at 21:00 Dextrose 1,000 ml @ 125 mls/hr Q8H IV Last administered on 02/05/19at 22:04; Admin Dose 125 MLS/HR; Start 02/05/19 at 21:30 Allergies: Coded Allergies: No Known Allergy (Verified , 02/04/19) Past Surgical History patient in coma unable to obtain Past Surgical Hx: other (c section) Social History patient in coma unable to obtain Alcohol Use: occasionally Smoking Status: Never smoker Drug Use: other (unk) Exam/Review of Systems Exam Vitals Vital Signs Date Temp Pulse Resp B/P (MAP) Pulse Ox O2 O2 Flow FiO2 Time Delivery Rate 02/05/19 89 26 96 60 21:00 02/05/19 96.0 90/66 (74) Mechanical 20:00 Ventilator Intake and Output 02/04/19 02/04/19 02/05/19 1515:00 23:00 07:00 IntakeIntake Total 37.5 ml 735.61 ml 1291.375 ml OutputOutput Total 338 ml 2036 ml BalanceBalance 37.5 ml 397.61 ml -744.625 ml Exam [id number] pupils 8mm fixed no corneal, cough or gag no spontaneous respirations Results Result Diagram: 02/05/19 1747 02/05/19 1747 Results 24hrs Laboratory Tests Test 02/04/19 23:11 02/04/19 23:40 02/05/19 00:10 02/05/19 01:41 Blood Gas Blood arterial Blood Specimen arterial Source Arterial Blood 02/04/2019 6:41: 02/05/2019 12:3 Date Drawn 00 PM 0:56 AM Arterial Blood 7.160 *L 7.298 *L pH (Temp corrected ) Arterial Blood 45.0 26.3 L pCO2 (Temp correct) Arterial Blood 73.3 L 92.0 pO2 (Temp corrected ) Arterial Blood 15.7 L 12.9 L HCO3 Arterial Blood -12.8 L -12.2 L Base Excess Arterial Blood 92.7 L 97.7 Oxygen Saturati on Cristino Test ACCEPTAB ACCEPTAB Arterial Blood Right Radial Left Radial Gas Puncture Site Arterial 0.3 0.2 Blood Carboxyhe moglobin Arterial Blood 0.3 0.2 Methemoglobin Blood Gas A-a 594.7 H 454.5 H O2 Differential Oxyhemoglobin 92.1 L 97.3 Percent Blood Gas 37.0 35.1 Temperature Blood Gas 20.0 26.0 Respiration Rate Blood Gas 20 26 Actual Respiration Rat e Blood Gas VENT - AC VENT - AC Modality FiO2 100.0 80.0 Blood Gas Tidal 500.0 550.0 Volume Blood Gas Low 5.0 5.0 PEEP Setting Blood Gas ANNE MARIE TUCKER R Critical Value N Read Back Blood Gas RT MR Notified Whom Blood Gas 02/04/2019 6:53: 02/05/2019 12:4 Notified Time 00 PM 4:21 AM White Blood 24.1 #H Count Red Blood Count 5.44 H Hemoglobin 15.9 Hematocrit 50.3 H Mean 92.5 Corpuscular Volume Mean 29.2 Corpuscular Hemoglobin Mean 31.6 L Corpuscular Hemoglobin Conc ent Red Cell 13.8 Distribution Width Platelet Count 261 Mean Platelet 10.5 H Volume Immature 0.600 H Granulocytes % Neutrophils % 90.3 H Lymphocytes % 4.2 L Monocytes % 4.4 Eosinophils % 0.0 Basophils % 0.5 Nucleated Red 0.0 Blood Cells % Immature 0.150 H Granulocytes # Neutrophils # 21.7 H Lymphocytes # 1.0 Monocytes # 1.1 H Eosinophils # 0.0 Basophils # 0.1 Nucleated Red 0.0 Blood Cells # Sodium Level 142 Potassium Level 4.4 Chloride Level 116 H Carbon Dioxide 15 L Level Anion Gap 11 Blood Urea 16 Nitrogen Creatinine 1.23 H Est Glomerular 50 L Filtrat Rate mL/min Glucose Level 129 Lactic Acid 6.7 *H Level Calcium Level 8.9 Phosphorus 2.0 #L Level Magnesium Level 1.7 Total Bilirubin 0.3 Direct 0.00 Bilirubin Indirect 0.3 Bilirubin Aspartate Amino 104 H Transf (AST/SGO T) Alanine 85 H Aminotransferas e (ALT/SGPT) Alkaline 52 Phosphatase Total Protein 5.8 L Albumin 3.1 L Globulin 2.70 Albumin/Globuli 1.14 n Ratio Blood Gas 36.0 Inspiratory Pressure Bedside Glucose 115 Test 02/05/19 05:16 02/05/19 06:00 02/05/19 06:20 02/05/19 08:21 White Blood 31.0 #H Count Red Blood Count 5.29 Hemoglobin 15.5 Hematocrit 49.1 H Mean 92.8 Corpuscular Volume Mean 29.3 Corpuscular Hemoglobin Mean 31.6 L Corpuscular Hemoglobin Conc ent Red Cell 14.1 Distribution Width Platelet Count 261 Mean Platelet 10.7 H Volume Immature 0.900 H Granulocytes % Neutrophils % Segmented 68 Neutrophils % (Manual) Band 26 H Neutrophils % (Manual) Lymphocytes % Lymphocytes % 4 L (Manual) Monocytes % Monocytes % 2 (Manual) Eosinophils % Basophils % Nucleated Red 0.0 Blood Cells % Immature 0.290 H Granulocytes # Neutrophils # Neutrophils # 23.6 H (Manual) Band 8.0 H Neutrophils # Lymphocytes 1.2 (Manual) Lymphocytes # Monocytes # Monocytes # 0.6 (Manual) Eosinophils # Basophils # Nucleated Red Blood Cells # Platelet NORMAL Estimate Poikilocytosis 3+ Anisocytosis 1+ Activated 27.9 Partial Thrombo plast Time Mix PTT Normal Plasma Immediat e Mix PTT Normal Plasma 1 Hour Fibrinogen 401.0 # Sodium Level 150 H Potassium Level 4.8 Chloride Level 125 H Carbon Dioxide 16 L Level Anion Gap 9 Blood Urea 15 Nitrogen Creatinine 1.02 H Est Glomerular > 60 Filtrat Rate mL/min Glucose Level 132 Lactic Acid 6.4 *H Level Calcium Level 9.3 Phosphorus 2.1 L Level Magnesium Level 1.8 Total Bilirubin 0.4 Direct 0.00 Bilirubin Indirect 0.4 Bilirubin Aspartate Amino 91 H Transf (AST/SGO T) Alanine 78 H Aminotransferas e (ALT/SGPT) Alkaline 66 Phosphatase Total Protein 5.8 L Albumin 3.0 L Globulin 2.80 Albumin/Globuli 1.07 n Ratio Amylase Level 872 #H Lipase 72 Blood Gas Blood arterial Specimen Source Arterial Blood 02/05/2019 6:10: Date Drawn 00 AM Arterial Blood 7.325 L pH (Temp corrected ) Arterial Blood 26.9 L pCO2 (Temp correct) Arterial Blood 123.8 H pO2 (Temp corrected ) Arterial Blood 13.8 L HCO3 Arterial Blood -10.6 L Base Excess Arterial Blood 98.6 H Oxygen Saturati on Cristino Test ACCEPTAB Arterial Blood Left Radial Gas Puncture Site Arterial 0.2 Blood Carboxyhe moglobin Arterial Blood 0.3 Methemoglobin Blood Gas A-a 420.1 H O2 Differential Oxyhemoglobin 98.1 Percent Blood Gas 36.1 Temperature Blood Gas 20.0 Respiration Rate Blood Gas 26 Actual Respiration Rat e Blood Gas VENT - AC Modality FiO2 80.0 Blood Gas Tidal 550.0 Volume Blood Gas Low 5.0 PEEP Setting Blood Gas TM Notified Whom Blood Gas 02/05/2019 6:22: Notified Time 00 AM Bedside Glucose 128 70 Test 02/05/19 11:20 02/05/19 11:36 02/05/19 12:00 02/05/19 12:09 Urine Color COLORLESS Urine Clarity CLEAR Urine pH 5.0 Urine Specific 1.005 [place] Urine Ketones NEGATIVE Urine Nitrite NEGATIVE Urine Bilirubin NEGATIVE Urine NEGATIVE Urobilinogen Urine Leukocyte NEGATIVE Esterase Urine NEGATIVE Hemoglobin Urine 115 L Osmolality Urine Random 14.42 L Creatinine Urine Random < 13 L Sodium Urine Glucose NEGATIVE Urine Total 21.0 H Protein White Blood 22.3 #H Count Red Blood Count 4.91 Hemoglobin 14.4 Hematocrit 43.7 Mean 89.0 Corpuscular Volume Mean 29.3 Corpuscular Hemoglobin Mean 33.0 Corpuscular Hemoglobin Conc ent Red Cell 14.3 Distribution Width Platelet Count 199 # Mean Platelet 10.9 H Volume Immature 0.800 H Granulocytes % Neutrophils % Lymphocytes % Monocytes % Eosinophils % Basophils % Nucleated Red 0.0 Blood Cells % Immature 0.170 H Granulocytes # Neutrophils # Lymphocytes # Monocytes # Eosinophils # Basophils # Nucleated Red Blood Cells # Sodium Level 155 H Potassium Level 3.4 L Chloride Level 129 H Carbon Dioxide 19 L Level Anion Gap 7 Blood Urea 16 Nitrogen Creatinine 0.87 Est Glomerular > 60 Filtrat Rate mL/min Glucose Level 142 Calcium Level 8.9 Phosphorus < 0.5 #L Level Magnesium Level 1.9 Total Bilirubin 0.7 Direct 0.00 Bilirubin Indirect 0.7 Bilirubin Aspartate Amino 75 H Transf (AST/SGO T) Alanine 63 Aminotransferas e (ALT/SGPT) Alkaline 59 Phosphatase Total Protein 5.5 L Albumin 2.9 L Globulin 2.60 Albumin/Globuli 1.11 n Ratio Blood Gas Blood Specimen arterial Source Arterial Blood 02/05/2019 12:1 Date Drawn 0:10 PM Arterial Blood 7.465 H pH (Temp corrected ) Arterial Blood 23.5 L pCO2 (Temp correct) Arterial Blood 86.9 pO2 (Temp corrected ) Arterial Blood 16.7 L HCO3 Arterial Blood -5.2 L Base Excess Arterial Blood 97.5 Oxygen Saturati on Cristino Test ACCEPTAB Arterial Blood Right Radial Gas Puncture Site Arterial 0.2 Blood Carboxyhe moglobin Arterial Blood 0.2 Methemoglobin Blood Gas A-a 388.7 H O2 Differential Oxyhemoglobin 97.1 Percent Blood Gas 36.0 Temperature Blood Gas 26.0 Respiration Rate Blood Gas 26 Actual Respiration Rat e Blood Gas VENT - AC Modality FiO2 70.0 Blood Gas Tidal 550.0 Volume Blood Gas Low 5.0 PEEP Setting Blood Gas TM Notified Whom Blood Gas 02/05/2019 12:2 Notified Time 1:52 PM Bedside Glucose 133 Test 02/05/19 17:47 02/05/19 18:00 02/05/19 20:39 White Blood 14.7 #H Count Red Blood Count 4.68 Hemoglobin 13.7 Hematocrit 41.5 Mean 88.7 Corpuscular Volume Mean 29.3 Corpuscular Hemoglobin Mean 33.0 Corpuscular Hemoglobin Conc ent Red Cell 14.0 Distribution Width Platelet Count 138 #L Mean Platelet 10.6 H Volume Immature 0.500 H Granulocytes % Neutrophils % 84.6 H Lymphocytes % 12.0 L Monocytes % 2.2 Eosinophils % 0.3 Basophils % 0.4 Nucleated Red 0.0 Blood Cells % Immature 0.080 H Granulocytes # Neutrophils # 12.5 H Lymphocytes # 1.8 Monocytes # 0.3 Eosinophils # 0.0 Basophils # 0.1 Nucleated Red 0.0 Blood Cells # Sodium Level 158 H Potassium Level 2.6 *L Chloride Level 132 H Carbon Dioxide 21 Level Anion Gap 5 Blood Urea 15 Nitrogen Creatinine 0.86 Est Glomerular > 60 Filtrat Rate mL/min Glucose Level 123 Bedside Glucose 117 108 Calcium Level 9.2 Phosphorus < 0.5 L Level Magnesium Level 2.0 Total Bilirubin 0.8 Direct 0.00 Bilirubin Indirect 0.8 Bilirubin Aspartate Amino 61 H Transf (AST/SGO T) Alanine 53 Aminotransferas e (ALT/SGPT) Alkaline 56 Phosphatase Total Protein 5.0 L Albumin 2.6 L Globulin 2.40 Albumin/Globuli 1.08 n Ratio Blood Gas Blood arterial Specimen Source Arterial Blood 02/05/2019 5:30: Date Drawn 47 PM Arterial Blood 7.445 pH (Temp corrected ) Arterial Blood 25.4 L pCO2 (Temp correct) Arterial Blood 96.8 pO2 (Temp corrected ) Arterial Blood 17.2 L HCO3 Arterial Blood -5.3 L Base Excess Arterial Blood 97.9 Oxygen Saturati on Cristino Test ACCEPTAB Arterial Blood Right Radial Gas Puncture Site Arterial 0.1 Blood Carboxyhe moglobin Arterial Blood 0.4 Methemoglobin Blood Gas A-a 376.8 H O2 Differential Oxyhemoglobin 97.4 Percent Blood Gas 36.0 Temperature Blood Gas 26.0 Respiration Rate Blood Gas 26 Actual Respiration Rat e Blood Gas VENT - AC Modality FiO2 70.0 Blood Gas Tidal 550.0 Volume Blood Gas Low 5.0 PEEP Setting Blood Gas RDIX Notified Whom Blood Gas 02/05/2019 5:51: Notified Time 25 PM Medications Medication Current Medications Norepinephrine 250 ml @ 1.875 mls/ hr TITRATE IV Last administered on 02/04/19at 18:04; Admin Dose 37.5 MLS/HR; Start 02/04/19 at 12:00 Miscellaneous Information 1 ea NOTE XX ; Start 02/04/19 at 15:00 Glucose (Glutose) 15 gm Q15M PRN PO DECREASED GLUCOSE; Start 02/04/19 at 15:00 Glucose (Glutose) 22.5 gm Q15M PRN PO DECREASED GLUCOSE; Start 02/04/19 at 15:00 Dextrose (D50w Syringe) 25 ml Q15M PRN IV DECREASED GLUCOSE; Start 02/04/19 at 15:00 Dextrose (D50w Syringe) 50 ml Q15M PRN IV DECREASED GLUCOSE; Start 02/04/19 at 15:00 Glucagon (Glucagen) 1 mg Q15M PRN IM DECREASED GLUCOSE; Start 02/04/19 at 15:00 Glucose (Glutose) 15 gm Q15M PRN BUCCAL DECREASED GLUCOSE; Start 02/04/19 at 15:00 Acetaminophen (Tylenol Supp) 650 mg Q4H PRN CA TEMP > 37C; Start 02/04/19 at 17:30 Acetaminophen (Tylenol Liquid) 650 mg Q4H PRN PO TEMP > 37C; Start 02/04/19 at 17:30 Acetaminophen (Tylenol Supp) 500 mg Q6H CA ; Start 02/05/19 at 17:30 Acetaminophen (Tylenol Liquid) 500 mg Q6H PO ; Start 02/05/19 at 17:30 Meperidine HCl (Demerol) 12.5 mg Q4H PRN IV POST OPERATIVE SHIVERING; Start 02/04/19 at 17:30 Meperidine HCl (Demerol) 25 mg Q4H PRN IV POST OPERATIVE SHIVERING; Start 02/04/19 at 17:30 Eye Lubricant (Akwa Oint) 1 applic Q6 BOTH EYES Last administered on 02/05/19 17:53; Admin Dose 1 APPLIC; Start 02/04/19 at 18:00 Eye Lubricant (Artificial Tears Oph) 2 drop Q6 BOTH EYES Last administered on 02/05/19 17:53; Admin Dose 2 DROP; Start 02/04/19 at 18:00 Midazolam HCl 50 ml @ 1 mls/hr TITRATE IV Last administered on 02/05/19 10:16; Admin Dose 4 MLS/HR; Start 02/04/19 at 22:30 Fentanyl 100 ml @ 2.5 mls/hr TITRATE IV Last administered on 02/05/19 16:28; Admin Dose 5 MLS/HR; Start 02/04/19 at 22:30 Diagnostic Test (Pha) (Accu-Chek) 1 ea Q4 XX Last administered on 02/05/19 1 7:52; Admin Dose 1 EA; Start 02/05/19 at 00:00 Phenylephrine HCl 40 mg/Dextrose 250 ml @ 37.5 mls/hr TITRATE IV Last administered on 02/05/19 16:21; Admin Dose 30 MLS/HR; Start 02/05/19 at 00:30 Levetiracetam 100 ml @ 400 mls/hr Q12 IVPB Last administered on 02/05/19 20:44; Admin Dose 400 MLS/HR; Start 02/05/19 at 09:00 Piperacillin Sod/ Tazobactam Sod 100 ml @ 200 mls/hr Q8 IVPB Last administered on 02/05/19 21:58; Admin Dose 200 MLS/HR; Start 02/05/19 at 09:30 Desmopressin Acetate (Ddavp) 2 mcg BID IV Last administered on 02/05/19 14:13; Admin Dose 2 MCG; Start 02/05/19 at 14:30 Potassium Chloride 50 ml @ 25 mls/hr Q2H IVPB Last administered on 02/05/19 21:36; Admin Dose 25 MLS/HR; Start 02/05/19 at 19:00; Stop 02/05/19 at 22:59 Nimodipine (Nimotop) 60 mg Q4 NGT ; Start 02/05/19 at 21:00 Dextrose 1,000 ml @ 125 mls/hr Q8H IV Last administered on 02/05/19at 22:04; Admin Dose 125 MLS/HR; Start 02/05/19 at 21:30 IVY NIÑO MD Feb 05, 2019 22:14
[2019-02-05] MEDS: NORepinephrine 8MG/250 ML (PMX 250 ML IV SCH (23:52)
[2019-02-06] VITALS (91 sets, daily range): BP systolic 75–119; BP diastolic 41–84; PULSE 76–114; RESP 23–26
[2019-02-06] MEDS: ACCU-CHEK XX SCH ×6 (01:00→21:00)
[2019-02-06] MEDS ORDERED: MAGNESIUM SULFATE 2 GM/50 ML 50 ML IVPB ONE ×2 (02:00→17:30)
[2019-02-06] MEDS: ACETAMINOPHEN 650 MG SUPP PR SCH ×4 (05:30→23:30)
[2019-02-06] MEDS: POTASSIUM CHLORIDE 50 ML IVPB SCH ×2 (05:45→07:12)
[2019-02-06] MEDS: ARTIFICIAL TEARS 15 ML OPH BOTH EYES SCH ×3 (05:48→17:49)
[2019-02-06] MEDS: OCULAR LUBRICANT 3.5 GM OPH OINT BOTH EYES SCH ×3 (05:49→17:50)
[2019-02-06] MEDS: PIPER-TAZO 3.375 GM IV (PMX) 100 ML IVPB SCH ×3 (06:48→21:39)
[2019-02-06] MEDS: DEXTROSE 5% 1,000 ML IV SCH ×3 (06:51→22:15)
[2019-02-06] MEDS: ACETAMINOPHEN 650MG/20.3ML CUP PO SCH ×3 (07:05→17:48)
--- NOTE | 2019-02-06 07:17 | EEG ---
EEG NOTE Report Details DATE OF TEST: 02/05/19 HISTORY: The patient is a 33-year-old F who presents following clinical spells concerning for seizure. This EEG is requested to rule out nonconvulsive status epilepticus. SEDATION: None. CONDITIONS OF RECORDING: This EEG was recorded digitally on the [employer] machine, using the [employer] 10-20 System of electrodes plus anterior temporals and [place]. STATES SAMPLED: Comatose. FINDINGS: The background is near-flat...with frequent EMG artifact throughout. The normal [id number] frequency-amplitude gradient was absent. Photic stimulation does not elicit any definite driving responses or epileptiform discharges. Hyperventilation was not performed. No epileptiform discharges were seen. IMPRESSION: Abnormal electroencephalogram due to: severe, diffuse slowing. COMMENT: The slowing of the background indicates severe, diffuse cortical dysfunction of nonspecific etiology. ANGELA BECK February 06, 2019 07:17
--- NOTE | 2019-02-06 08:18 | PN ---
DATE: 02/06/2019 SUBJECTIVE: The patient remains critically ill on full ventilatory support, on multiple pressor supp ort. The patient's urinary output and sodium have improved after the patient was initiated on DDAVP. No other acute events noted. No hemoptysis, hematemesis or hematochezia. OBJECTIVE: VITAL SIGNS: Blood pressure is 99/71, respirations 26, pulse 101, temperature 98.5. HEENT: Head is normocephalic. NECK: Supple. HEART: Regular rate. LUNGS: Show diminished breath sounds at the base. ABDOMEN: Soft, nontender to palpation without rebound or guarding. EXTREMITIES: Negative for clubbing, cyanosis. Trace edema. DERMATOLOGIC: No rashes. MUSCULOSKELETAL: No joint effusion. NEUROLOGIC: No change in exam. MEDICATIONS: Reviewed. LABORATORY DATA: From 02/06/19 was reviewed. The patient has sodium 153, potassium 2.9. White coun t 16.3, hemoglobin 12.7, platelet count is 143. The patient's microbiology was reviewed. 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 The patient was initiated on D DAVP with improvement and decrease in urinary output. Sodium levels have slowly been trending down. We will continue current treatment plan. We will start the patient on free water flushes. Continue DDAVP. Continue hypertonic fluids and monitor closely. 2. Hypokalemia. We will replete with potassium chloride. 3. Cardiac arrest. The patient is currently under hyperthermic protocol. We will continue. Follow up with cardiology. 4. Acute intracranial hemorrhage, subarachnoid hemorrhage. The patient was seen by neurosurgery. N o plan for intervention at this time. 5. Ventilator-dependent respiratory failure. Vent settings and ABG was reviewed. Continue to monit or. 6. Acute encephalopathy, questionable anoxic injury. The patient is being followed by neurology and neurosurgery. Continue to monitor. 7. Shock. Etiology may be septic, neurogenic. The patient remains on pressor support and IV fluids , antibiotic therapy. We will continue. Cultures have been reviewed. 8. Hyperglycemia. Continue current insulin regimen. 9. Seizure disorder. Continue medical management. 10. Hypophosphatemia and hypomagnesemia. We will replete. 11. Lactic acidosis, etiology is secondary to shock. We will continue current medical management. Continue pressor support. Continue IV antibiotics, continue to trend lactic acid levels. Please note I spent over 30 minutes of critical care time with this patient. Dictated By: TERE KUNZ DO NR/SARAH Conf#: [id number] DID#: [id number] CC: GUERO WILLOUGHBY MD; TARUN REESE MD;*EndCC*
--- NOTE | 2019-02-06 08:40 | CONS ---
Consult Date/Type/Reason Admit Date/Time Feb 04, 2019 at 13:52 Initial Consult Date 02/05/19 Type of Consultation: cv Requesting Provider: GUERO WILLOUGHBY Date/Time of Note DATE: 02/06/19 TIME: 08:35 Subjective cardiology follow up note/ critical care follow up note S; d/w staff and tele reviewed. pt remains in NSR she is still on levo and neosyn drip in ICU intubated and nonresponsve O: General: Status with intubation on the vent in ICU HEENT: NC/AT. pupils are dilated and fixed. no corneal reflex NECK: no stridor. CV: RRR. systolic murmur; no gallop or rubs. PULM: no wheezing or rhonchi. GI: SOFT, NT, ND, no rebound or guarding Extremity: trace B/L LE edema. no clubbing. neuro: Nonresponsive Psych: calm rectal: deferred : normal EKG in February 05 2 AM shows sinus tachycardia. Nonspecific diffuse T wave abnormalities. Echocardiogram done 02/04/2019 which was personally reviewed again shows: Normal left ventricular systolic function. Normal left ventricular cavity size. Mild concentric left ventricular hypertrophy. Severe global left ventricular systolic dysfunction. Ejection fraction is visually estimated at 30-35 %. Abnormal Diastolic Function. These segments of the LV are hypokinetic mid anterior segment, apical anterior segment, inferolateral mid segment, apical lateral segment, anterolateral mid segment, inferior mid segment, inferior apex segment, inferoseptum mid segment, anteroseptum mid segment and apical septum. The left atrium is normal in size. Normal appearance and function of the mitral valve with trace physiologic regurgitation. Normal appearance of the aortic valve. No significant aortic stenosis or insufficiency. Normal appearance of the tricuspid valve. Estimated peak PA systolic pressure 41 mmHg. There is trace tricuspid regurgitation. Objective Vitals Vital Signs Date Temp Pulse Resp B/P (MAP) Pulse Ox O2 O2 Flow FiO2 Time Delivery Rate 02/06/19 105 26 96/66 (76) 93 08:15 02/06/19 98.3 Mechanical 08:00 Ventilator 02/06/19 90 06:13 Intake and Output 02/05/19 02/05/19 02/06/19 1515:00 23:00 07:00 IntakeIntake Total 1246.875 ml 1502.745 ml 1558.105 ml OutputOutput Total 1760 ml 890 ml 180 ml BalanceBalance -513.125 ml 612.745 ml 1378.105 ml Results/Medications Result Diagram: 02/06/1942902/06/19 043 Results 24 hrs Laboratory Tests Test 02/05/19 11:20 02/05/19 11:36 02/05/19 12:00 02/05/19 12:09 Urine Color COLORLESS Urine Clarity CLEAR Urine pH 5.0 Urine Specific 1.005 [place] Urine Ketones NEGATIVE Urine Nitrite NEGATIVE Urine Bilirubin NEGATIVE Urine NEGATIVE Urobilinogen Urine Leukocyte NEGATIVE Esterase Urine NEGATIVE Hemoglobin Urine 115 L Osmolality Urine Random 14.42 L Creatinine Urine Random < 13 L Sodium Urine Glucose NEGATIVE Urine Total 21.0 H Protein White Blood 22.3 #H Count Red Blood Count 4.91 Hemoglobin 14.4 Hematocrit 43.7 Mean 89.0 Corpuscular Volume Mean 29.3 Corpuscular Hemoglobin Mean 33.0 Corpuscular Hemoglobin Conc ent Red Cell 14.3 Distribution Width Platelet Count 199 # Mean Platelet 10.9 H Volume Immature 0.800 H Granulocytes % Neutrophils % Lymphocytes % Monocytes % Eosinophils % Basophils % Nucleated Red 0.0 Blood Cells % Immature 0.170 H Granulocytes # Neutrophils # Lymphocytes # Monocytes # Eosinophils # Basophils # Nucleated Red Blood Cells # Sodium Level 155 H Potassium Level 3.4 L Chloride Level 129 H Carbon Dioxide 19 L Level Anion Gap 7 Blood Urea 16 Nitrogen Creatinine 0.87 Est Glomerular > 60 Filtrat Rate mL/min Glucose Level 142 Calcium Level 8.9 Phosphorus < 0.5 #L Level Magnesium Level 1.9 Total Bilirubin 0.7 Direct 0.00 Bilirubin Indirect 0.7 Bilirubin Aspartate Amino 75 H Transf (AST/SGO T) Alanine 63 Aminotransferas e (ALT/SGPT) Alkaline 59 Phosphatase Total Protein 5.5 L Albumin 2.9 L Globulin 2.60 Albumin/Globuli 1.11 n Ratio Blood Gas Blood Specimen arterial Source Arterial Blood 02/05/2019 12:1 Date Drawn 0:10 PM Arterial Blood 7.465 H pH (Temp corrected ) Arterial Blood 23.5 L pCO2 (Temp correct) Arterial Blood 86.9 pO2 (Temp corrected ) Arterial Blood 16.7 L HCO3 Arterial Blood -5.2 L Base Excess Arterial Blood 97.5 Oxygen Saturati on Cristino Test ACCEPTAB Arterial Blood Right Radial Gas Puncture Site Arterial 0.2 Blood Carboxyhe moglobin Arterial Blood 0.2 Methemoglobin Blood Gas A-a 388.7 H O2 Differential Oxyhemoglobin 97.1 Percent Blood Gas 36.0 Temperature Blood Gas 26.0 Respiration Rate Blood Gas 26 Actual Respiration Rat e Blood Gas VENT - AC Modality FiO2 70.0 Blood Gas Tidal 550.0 Volume Blood Gas Low 5.0 PEEP Setting Blood Gas TM Notified Whom Blood Gas 02/05/2019 12:2 Notified Time 1:52 PM Bedside Glucose 133 Test 02/05/19 17:47 02/05/19 18:00 02/05/19 20:39 02/06/19 00:00 White Blood 14.7 #H Count Red Blood Count 4.68 Hemoglobin 13.7 Hematocrit 41.5 Mean 88.7 Corpuscular Volume Mean 29.3 Corpuscular Hemoglobin Mean 33.0 Corpuscular Hemoglobin Conc ent Red Cell 14.0 Distribution Width Platelet Count 138 #L Mean Platelet 10.6 H Volume Immature 0.500 H Granulocytes % Neutrophils % 84.6 H Lymphocytes % 12.0 L Monocytes % 2.2 Eosinophils % 0.3 Basophils % 0.4 Nucleated Red 0.0 Blood Cells % Immature 0.080 H Granulocytes # Neutrophils # 12.5 H Lymphocytes # 1.8 Monocytes # 0.3 Eosinophils # 0.0 Basophils # 0.1 Nucleated Red 0.0 Blood Cells # Sodium Level 158 H Potassium Level 2.6 *L Chloride Level 132 H Carbon Dioxide 21 Level Anion Gap 5 Blood Urea 15 Nitrogen Creatinine 0.86 Est Glomerular > 60 Filtrat Rate mL/min Glucose Level 123 Bedside Glucose 117 108 Calcium Level 9.2 Phosphorus < 0.5 L Level Magnesium Level 2.0 Total Bilirubin 0.8 Direct 0.00 Bilirubin Indirect 0.8 Bilirubin Aspartate Amino 61 H Transf (AST/SGO T) Alanine 53 Aminotransferas e (ALT/SGPT) Alkaline 56 Phosphatase Total Protein 5.0 L Albumin 2.6 L Globulin 2.40 Albumin/Globuli 1.08 n Ratio Blood Gas Blood Blood Specimen arterial arterial Source Arterial Blood 02/05/2019 5:30 02/05/2019 11:5 Date Drawn :47 PM 0:47 PM Arterial Blood 7.445 7.404 pH (Temp corrected ) Arterial Blood 25.4 L 25.5 L pCO2 (Temp correct) Arterial Blood 96.8 57.5 L pO2 (Temp corrected ) Arterial Blood 17.2 L 15.7 L HCO3 Arterial Blood -5.3 L -7.5 L Base Excess Arterial Blood 97.9 92.5 L Oxygen Saturati on Cristino Test ACCEPTAB ACCEPTAB Arterial Blood Right Radial Left Radial Gas Puncture Site Arterial 0.1 0.2 Blood Carboxyhe moglobin Arterial Blood 0.4 0.3 Methemoglobin Blood Gas A-a 376.8 H 343.6 H O2 Differential Oxyhemoglobin 97.4 92.0 L Percent Blood Gas 36.0 36.1 Temperature Blood Gas 26.0 26.0 Respiration Rate Blood Gas 26 26 Actual Respiration Rat e Blood Gas VENT - AC VENT - AC Modality FiO2 70.0 60.0 Blood Gas Tidal 550.0 550.0 Volume Blood Gas Low 5.0 5.0 PEEP Setting Blood Gas [employer] Notified Whom Blood Gas 02/05/2019 5:51 02/05/2019 11:5 Notified Time :25 PM 5:27 PM Test 02/06/19 00:22 02/06/19 01:39 02/06/19 04:00 02/06/19 04:30 White Blood 15.3 H 16.3 H Count Red Blood Count 4.63 4.32 Hemoglobin 13.6 12.7 Hematocrit 41.2 38.3 Mean 89.0 88.7 Corpuscular Volume Mean 29.4 29.4 Corpuscular Hemoglobin Mean 33.0 33.2 Corpuscular Hemoglobin Conc ent Red Cell 14.3 14.3 Distribution Width Platelet Count 136 L 143 Mean Platelet 11.1 H 11.6 H Volume Immature 1.000 H 0.700 H Granulocytes % Neutrophils % Segmented 46 41 Neutrophils % (Manual) Band 35 H 41 H Neutrophils % (Manual) Lymphocytes % Lymphocytes % 17 14 L (Manual) Monocytes % Eosinophils % Eosinophils % 1 1 (Manual) Basophils % Metamyelocytes 1 H % (manual) Nucleated Red 0.0 0.0 Blood Cells % Immature 0.160 H 0.110 H Granulocytes # Neutrophils # Neutrophils # 7.8 H 7.8 H (Manual) Band 5.3 H 6.6 H Neutrophils # Lymphocytes 2.6 2.2 (Manual) Lymphocytes # Monocytes # Eosinophils # Basophils # Metamyelocytes 0.1 H # Nucleated Red Blood Cells # Platelet NORMAL NORMAL Estimate Poikilocytosis 1+ Sodium Level 156 H 153 H Potassium Level 2.8 *L 2.9 *L Chloride Level 130 H 127 H Carbon Dioxide 18 L 19 L Level Anion Gap 8 7 Blood Urea 14 15 Nitrogen Creatinine 0.95 0.87 Est Glomerular > 60 > 60 Filtrat Rate mL/min Glucose Level 144 122 Calcium Level 9.1 8.9 Phosphorus < 0.5 L 0.5 L Level Magnesium Level 1.8 1.6 L Total Bilirubin 0.9 0.9 Direct 0.00 0.00 Bilirubin Indirect 0.9 0.9 Bilirubin Aspartate Amino 59 H 58 H Transf (AST/SGO T) Alanine 46 46 Aminotransferas e (ALT/SGPT) Alkaline 60 60 Phosphatase Total Protein 5.3 L 4.6 L Albumin 2.7 L 2.3 L Globulin 2.60 2.30 Albumin/Globuli 1.03 1.00 n Ratio Bedside Glucose 126 Lactic Acid 3.7 *H Level Monocytes % 3 (Manual) Monocytes # 0.4 (Manual) Anisocytosis 1+ Microcytosis 1+ Test 02/06/19 06:00 Blood Gas Blood arterial Specimen Source Arterial Blood 02/06/2019 6:00:5 Date Drawn 8 AM Arterial Blood 7.352 pH (Temp corrected ) Arterial Blood 31.1 L pCO2 (Temp correct) Arterial Blood 62.9 L pO2 (Temp corrected ) Arterial Blood 16.9 L HCO3 Arterial Blood -7.5 L Base Excess Arterial Blood 92.5 L Oxygen Saturati on Cristino Test ACCEPTAB Arterial Blood Left Radial Gas Puncture Site Arterial 0.3 Blood Carboxyhe moglobin Arterial Blood 0.2 Methemoglobin Blood Gas A-a 475.1 H O2 Differential Oxyhemoglobin 92.0 L Percent Blood Gas 36.9 Temperature Blood Gas 26.0 Respiration Rate Blood Gas 26 Actual Respiration Rat e Blood Gas VENT - AC Modality FiO2 80.0 Blood Gas Tidal 500.0 Volume Blood Gas Low 5.0 PEEP Setting Blood Gas D [facility] Notified Whom Blood Gas 02/06/2019 6:05:2 Notified Time 2 AM Home Meds Reported Medications Methyldopa* (Aldomet*) 500 Mg Tab, 500 MG PO TID, #90 TAB 02/04/19 Discontinued Reported Medications [Denies Meds] No Conflict Check 07/05/10 Medications Current Medications Norepinephrine 250 ml @ 1.875 mls/ hr TITRATE IV Last administered on at 23:52; Admin Dose 9.375 MLS/HR; Start 02/04/19 at 12:00 Miscellaneous Information 1 ea NOTE XX ; Start 02/04/19 at 15:00 Glucose (Glutose) 15 gm Q15M PRN PO DECREASED GLUCOSE; Start 02/04/19 at 15:00 Glucose (Glutose) 22.5 gm Q15M PRN PO DECREASED GLUCOSE; Start 02/04/19 at 15:00 Dextrose (D50w Syringe) 25 ml Q15M PRN IV DECREASED GLUCOSE; Start 02/04/19 at 15:00 Dextrose (D50w Syringe) 50 ml Q15M PRN IV DECREASED GLUCOSE; Start 02/04/19 at 15:00 Glucagon (Glucagen) 1 mg Q15M PRN IM DECREASED GLUCOSE; Start 02/04/19 at 15:00 Glucose (Glutose) 15 gm Q15M PRN BUCCAL DECREASED GLUCOSE; Start 02/04/19 at 15:00 Acetaminophen (Tylenol Supp) 650 mg Q4H PRN TX TEMP > 37C; Start 02/04/19 at 17:30 Acetaminophen (Tylenol Liquid) 650 mg Q4H PRN PO TEMP > 37C; Start 02/04/19 at 17:30 Acetaminophen (Tylenol Supp) 500 mg Q6H [place] ; Start 02/05/19 at 17:30 Acetaminophen (Tylenol Liquid) 500 mg Q6H PO Last administered on 02/06/19at 07:05; Admin Dose 500 MG; Start 02/05/19 at 17:30 Meperidine HCl (Demerol) 12.5 mg Q4H PRN IV POST OPERATIVE SHIVERING; Start 02/04/19 at 17:30 Meperidine HCl (Demerol) 25 mg Q4H PRN IV POST OPERATIVE SHIVERING; Start 02/04/19 at 17:30 Eye Lubricant (Akwa Oint) 1 applic Q6 BOTH EYES Last administered on 02/06/19at 05:49; Admin Dose 1 APPLIC; Start 02/04/19 at 18:00 Eye Lubricant (Artificial Tears Oph) 2 drop Q6 BOTH EYES Last administered on 02/06/19at 05:48; Admin Dose 2 DROP; Start 02/04/19 at 18:00 Midazolam HCl 50 ml @ 1 mls/hr TITRATE IV Last administered on 02/05/19 10:16; Admin Dose 4 MLS/HR; Start 02/04/19 at 22:30 Fentanyl 100 ml @ 2.5 mls/hr TITRATE IV Last administered on 02/05/19 16:28; Admin Dose 5 MLS/HR; Start 02/04/19 at 22:30 Diagnostic Test (Pha) (Accu-Chek) 1 ea Q4 XX Last administered on 02/05/19 17:52; Admin Dose 1 EA; Start 02/05/19 at 00:00 Phenylephrine HCl 40 mg/Dextrose 250 ml @ 37.5 mls/hr TITRATE IV Last a dministered on 02/05/19 23:54; Admin Dose 37.5 MLS/HR; Start 02/05/19 at 00:30 Levetiracetam 100 ml @ 400 mls/hr Q12 IVPB Last administered on 02/05/19 20:44; Admin Dose 400 MLS/HR; Start 02/05/19 at 09:00 Piperacillin Sod/ Tazobactam Sod 100 ml @ 200 mls/hr Q8 IVPB Last administered on 02/06/19 06:48; Admin Dose 200 MLS/HR; Start 02/05/19 at 09:30 Desmopressin Acetate (Ddavp) 2 mcg BID IV Last administered on 02/05/19 23:32; Admin Dose 2 MCG; Start 02/05/19 at 14:30 Nimodipine (Nimotop) 60 mg Q4 NGT ; Start 02/05/19 at 21:00 Dextrose 1,000 ml @ 75 mls/hr [id number] IV Last administered on 02/06/19 06:51; Admin Dose 125 MLS/HR; Start 02/05/19 at 21:30 Potassium Phosphate 40 meq/ Sodium Chloride 259.0909 ml @ 64.773 m... ONCE ONCE IVPB ; Start 02/06/19 at 09:00; Stop 02/06/19 at 12:59 Assessment/Plan Hospital Course (Demo Recall) 1. Intracranial hemorrhage/Subarachnoid hemorrhage 2. Hypoxic respiratory failure 3. Cardiomyopathy probably stress-induced versus others 4. Mildly abnormal troponin probably related to above 5. Severe encephalopathy due to above 6. Seizure due to above 7. History of hypertension currently hypotensive 8. Shock secondary to above Recommendation: Continue the vent support. Follow-up with neurology/ NEUROSURGERY recommendations Targeted temperature as per neurology recommendation Continue with Levophed and gema-to maintain the blood pressure for now replace K and Mg prn No aspirin or anticoagulant will be given given her intracranial bleed obviously Continue with ICU care More than 35 minutes critical care time was spent renal management is critically ill patient excluding procedures Thank you for his referral. We will continue to follow along with you FAITH PAT MD [facility] FAITH PAT MD February 06, 2019 08:40
[2019-02-06] MEDS ORDERED: POTASSIUM PHOSPHATE 40 MEQ in SOD CHLORIDE 0.9% 250 ML IVPB ONE (09:00)
[2019-02-06] MEDS ORDERED: NA BICARBONATE 8.4% 50 ML SYG IV STA (09:10)
--- NOTE | 2019-02-06 09:13 | CONS ---
Assessment/Plan Assessment/Plan Assessment/Plan (Daily) Chest x-ray is pending from today. Ventilator setting; AC of 26, tidal volume 550, PEEP of 5, 90% FiO2. Patient is currently on phenylephrine drip 150 mics per minute, Levophed 5 mics per minute. Patient is off Versed. Assessment and recommendations; 1. Patient admitted with cardiac arrest due to subarachnoid as well as intraventricular hemorrhage. 2. Severe anoxic brain injury. 3. Persistent shock. 4. Mild metabolic acidosis. 5. Extensive bilateral pneumonia. 6. Hypernatremia. 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 7. Severe hypoxemia. Continue current supportive care. Administer 2 g of sodium bicarb. Obtain follow-up chest x-ray. Monitor for any overt seizure activity. Prognosis appears very poor. 35 minutes of critical care time was spent evaluating the patient. Consultation Date/Type/Reason Admit Date/Time Feb 04, 2019 at 13:52 Initial Consult Date 02/05/19 Type of Consult Pulmonary/critical care Patient is a 33-year-old lady who was brought into the hospital after sustaining a cardiac arrest event. Further work-up revealed extensive subarachnoid hemorrhage as well as intraventricular hemorrhage. Patient currently is orally intubated and is on hypothermia protocol. Patient also exhibited new seizure activity and is currently on Keppra without any further episodes noted. Past medical history; 1. History of hypertension. Medications; reviewed. Allergies; none. Social history, family history, occupational history is not available. Review of systems; unable to be obtained. General exam; young woman, orally intubated, on hypothermia protocol. Sedated. Requesting Provider: GUERO WILLOUGHBY Date/Time of Note DATE: 02/06/19 TIME: 09:10 24 HR Interval Summary Free Text/Dictation Patient's condition is extremely critical. Remains hypotensive on high-dose pressor support. No overt seizure activity reported though. General exam; young female, orally intubated, unresponsive, currently in no distress. Exam/Review of Systems Exam Vitals Vital Signs Date Temp Pulse Resp B/P (MAP) Pulse Ox O2 O2 Flow FiO2 Time Delivery Rate 02/06/19 105 26 96/66 (76) 93 08:15 02/06/19 98.3 Mechanical 08:00 Ventilator 02/06/19 90 06:13 Intake and Output 02/05/19 02/05/19 02/06/19 1515:00 23:00 07:00 IntakeIntake Total 1246.875 ml 1502.745 ml 1558.105 ml OutputOutput Total 1760 ml 890 ml 180 ml BalanceBalance -513.125 ml 612.745 ml 1378.105 ml Exam HE ENT exam; supple neck, no JVD. No lymphadenopathy. Midline trachea. No thyromegaly. Patient has fair dentition. Pupils are dilated and nonreactive to light. Chest exam; diminished breath sounds bilaterally. S1-S2 audible, no murmurs. Regular rhythm. Abdomen exam; soft, no organomegaly. Bowel sounds are very sluggish. Abdomen is nondistended. Extremity exam; no peripheral edema. NARRATIVE WRITER exam; patient remains unresponsive. Results Result Diagram: 02/06/19 04302/06/19 043 Results 24hrs Laboratory Tests Test 02/05/19 11:20 02/05/19 11:36 02/05/19 12:00 02/05/19 12:09 Urine Color COLORLESS Urine Clarity CLEAR Urine pH 5.0 Urine Specific 1.005 [place] Urine Ketones NEGATIVE Urine Nitrite NEGATIVE Urine Bilirubin NEGATIVE Urine NEGATIVE Urobilinogen Urine Leukocyte NEGATIVE Esterase Urine NEGATIVE Hemoglobin Urine 115 L Osmolality Urine Random 14.42 L Creatinine Urine Random < 13 L Sodium Urine Glucose NEGATIVE Urine Total 21.0 H Protein White Blood 22.3 #H Count Red Blood Count 4.91 Hemoglobin 14.4 Hematocrit 43.7 Mean 89.0 Corpuscular Volume Mean 29.3 Corpuscular Hemoglobin Mean 33.0 Corpuscular Hemoglobin Conc ent Red Cell 14.3 Distribution Width Platelet Count 199 # Mean Platelet 10.9 H Volume Immature 0.800 H Granulocytes % Neutrophils % Lymphocytes % Monocytes % Eosinophils % Basophils % Nucleated Red 0.0 Blood Cells % Immature 0.170 H Granulocytes # Neutrophils # Lymphocytes # Monocytes # Eosinophils # Basophils # Nucleated Red Blood Cells # Sodium Level 155 H Potassium Level 3.4 L Chloride Level 129 H Carbon Dioxide 19 L Level Anion Gap 7 Blood Urea 16 Nitrogen Creatinine 0.87 Est Glomerular > 60 Filtrat Rate mL/min Glucose Level 142 Calcium Level 8.9 Phosphorus < 0.5 #L Level Magnesium Level 1.9 Total Bilirubin 0.7 Direct 0.00 Bilirubin Indirect 0.7 Bilirubin Aspartate Amino 75 H Transf (AST/SGO T) Alanine 63 Aminotransferas e (ALT/SGPT) Alkaline 59 Phosphatase Total Protein 5.5 L Albumin 2.9 L Globulin 2.60 Albumin/Globuli 1.11 n Ratio Blood Gas Blood arterial Specimen Source Arterial Blood 02/05/2019 12:10 Date Drawn :10 PM Arterial Blood 7.465 H pH (Temp corrected ) Arterial Blood 23.5 L pCO2 (Temp correct) Arterial Blood 86.9 pO2 (Temp corrected ) Arterial Blood 16.7 L HCO3 Arterial Blood -5.2 L Base Excess Arterial Blood 97.5 Oxygen Saturati on Cristino Test ACCEPTAB Arterial Blood Right Radial Gas Puncture Site Arterial 0.2 Blood Carboxyhe moglobin Arterial Blood 0.2 Methemoglobin Blood Gas A-a 388.7 H O2 Differential Oxyhemoglobin 97.1 Percent Blood Gas 36.0 Temperature Blood Gas 26.0 Respiration Rate Blood Gas 26 Actual Respiration Rat e Blood Gas VENT - AC Modality FiO2 70.0 Blood Gas Tidal 550.0 Volume Blood Gas Low 5.0 PEEP Setting Blood Gas TM Notified Whom Blood Gas 02/05/2019 12:21 Notified Time :52 PM Bedside Glucose 133 Test 02/05/19 17:47 02/05/19 18:00 02/05/19 20:39 02/06/19 00:00 White Blood 14.7 #H Count Red Blood Count 4.68 Hemoglobin 13.7 Hematocrit 41.5 Mean 88.7 Corpuscular Volume Mean 29.3 Corpuscular Hemoglobin Mean 33.0 Corpuscular Hemoglobin Conc ent Red Cell 14.0 Distribution Width Platelet Count 138 #L Mean Platelet 10.6 H Volume Immature 0.500 H Granulocytes % Neutrophils % 84.6 H Lymphocytes % 12.0 L Monocytes % 2.2 Eosinophils % 0.3 Basophils % 0.4 Nucleated Red 0.0 Blood Cells % Immature 0.080 H Granulocytes # Neutrophils # 12.5 H Lymphocytes # 1.8 Monocytes # 0.3 Eosinophils # 0.0 Basophils # 0.1 Nucleated Red 0.0 Blood Cells # Sodium Level 158 H Potassium Level 2.6 *L Chloride Level 132 H Carbon Dioxide 21 Level Anion Gap 5 Blood Urea 15 Nitrogen Creatinine 0.86 Est Glomerular > 60 Filtrat Rate mL/min Glucose Level 123 Bedside Glucose 117 108 Calcium Level 9.2 Phosphorus < 0.5 L Level Magnesium Level 2.0 Total Bilirubin 0.8 Direct 0.00 Bilirubin Indirect 0.8 Bilirubin Aspartate Amino 61 H Transf (AST/SGO T) Alanine 53 Aminotransferas e (ALT/SGPT) Alkaline 56 Phosphatase Total Protein 5.0 L Albumin 2.6 L Globulin 2.40 Albumin/Globuli 1.08 n Ratio Blood Gas Blood arterial Blood Specimen arterial Source Arterial Blood 02/05/2019 5:30: 02/05/2019 11:5 Date Drawn 47 PM 0:47 PM Arterial Blood 7.445 7.404 pH (Temp corrected ) Arterial Blood 25.4 L 25.5 L pCO2 (Temp correct) Arterial Blood 96.8 57.5 L pO2 (Temp corrected ) Arterial Blood 17.2 L 15.7 L HCO3 Arterial Blood -5.3 L -7.5 L Base Excess Arterial Blood 97.9 92.5 L Oxygen Saturati on Cristino Test ACCEPTAB ACCEPTAB Arterial Blood Right Radial Left Radial Gas Puncture Site Arterial 0.1 0.2 Blood Carboxyhe moglobin Arterial Blood 0.4 0.3 Methemoglobin Blood Gas A-a 376.8 H 343.6 H O2 Differential Oxyhemoglobin 97.4 92.0 L Percent Blood Gas 36.0 36.1 Temperature Blood Gas 26.0 26.0 Respiration Rate Blood Gas 26 26 Actual Respiration Rat e Blood Gas VENT - AC VENT - AC Modality FiO2 70.0 60.0 Blood Gas Tidal 550.0 550.0 Volume Blood Gas Low 5.0 5.0 PEEP Setting Blood Gas RDIX F[facility] Notified Whom Blood Gas 02/05/2019 5:51: 02/05/2019 11:5 Notified Time 25 PM 5:27 PM Test 02/06/19 00:22 02/06/19 01:39 02/06/19 04:00 02/06/19 04:30 White Blood 15.3 H 16.3 H Count Red Blood Count 4.63 4.32 Hemoglobin 13.6 12.7 Hematocrit 41.2 38.3 Mean 89.0 88.7 Corpuscular Volume Mean 29.4 29.4 Corpuscular Hemoglobin Mean 33.0 33.2 Corpuscular Hemoglobin Conc ent Red Cell 14.3 14.3 Distribution Width Platelet Count 136 L 143 Mean Platelet 11.1 H 11.6 H Volume Immature 1.000 H 0.700 H Granulocytes % Neutrophils % Segmented 46 41 Neutrophils % (Manual) Band 35 H 41 H Neutrophils % (Manual) Lymphocytes % Lymphocytes % 17 14 L (Manual) Monocytes % Eosinophils % Eosinophils % 1 1 (Manual) Basophils % Metamyelocytes 1 H % (manual) Nucleated Red 0.0 0.0 Blood Cells % Immature 0.160 H 0.110 H Granulocytes # Neutrophils # Neutrophils # 7.8 H 7.8 H (Manual) Band 5.3 H 6.6 H Neutrophils # Lymphocytes 2.6 2.2 (Manual) Lymphocytes # Monocytes # Eosinophils # Basophils # Metamyelocytes 0.1 H # Nucleated Red Blood Cells # Platelet NORMAL NORMAL Estimate Poikilocytosis 1+ Sodium Level 156 H 153 H Potassium Level 2.8 *L 2.9 *L Chloride Level 130 H 127 H Carbon Dioxide 18 L 19 L Level Anion Gap 8 7 Blood Urea 14 15 Nitrogen Creatinine 0.95 0.87 Est Glomerular > 60 > 60 Filtrat Rate mL/min Glucose Level 144 122 Calcium Level 9.1 8.9 Phosphorus < 0.5 L 0.5 L Level Magnesium Level 1.8 1.6 L Total Bilirubin 0.9 0.9 Direct 0.00 0.00 Bilirubin Indirect 0.9 0.9 Bilirubin Aspartate Amino 59 H 58 H Transf (AST/SGO T) Alanine 46 46 Aminotransferas e (ALT/SGPT) Alkaline 60 60 Phosphatase Total Protein 5.3 L 4.6 L Albumin 2.7 L 2.3 L Globulin 2.60 2.30 Albumin/Globuli 1.03 1.00 n Ratio Bedside Glucose 126 Lactic Acid 3.7 *H Level Monocytes % 3 (Manual) Monocytes # 0.4 (Manual) Anisocytosis 1+ Microcytosis 1+ Test 02/06/19 05:41 02/06/19 06:00 Bedside Glucose 114 Blood Gas Blood arterial Specimen Source Arterial Blood 02/06/2019 6:00:5 Date Drawn 8 AM Arterial Blood 7.352 pH (Temp corrected ) Arterial Blood 31.1 L pCO2 (Temp correct) Arterial Blood 62.9 L pO2 (Temp corrected ) Arterial Blood 16.9 L HCO3 Arterial Blood -7.5 L Base Excess Arterial Blood 92.5 L Oxygen Saturati on Cristino Test ACCEPTAB Arterial Blood Left Radial Gas Puncture Site Arterial 0.3 Blood Carboxyhe moglobin Arterial Blood 0.2 Methemoglobin Blood Gas A-a 475.1 H O2 Differential Oxyhemoglobin 92.0 L Percent Blood Gas 36.9 Temperature Blood Gas 26.0 Respiration Rate Blood Gas 26 Actual Respiration Rat e Blood Gas VENT - AC Modality FiO2 80.0 Blood Gas Tidal 500.0 Volume Blood Gas Low 5.0 PEEP Setting Blood Gas D [employer] Notified Whom Blood Gas 02/06/2019 6:05:2 Notified Time 2 AM Medications Medication Current Medications Norepinephrine 250 ml @ 1.875 mls/ hr TITRATE IV Last administered on 02/05/19at 23:52; Admin Dose 9.375 MLS/HR; Start 02/04/19 at 12:00 Miscellaneous Information 1 ea NOTE XX ; Start 02/04/19 at 15:00 Glucose (Glutose) 15 gm Q15M PRN PO DECREASED GLUCOSE; Start 02/04/19 at 15:00 Glucose (Glutose) 22.5 gm Q15M PRN PO DECREASED GLUCOSE; Start 02/04/19 at 15:00 Dextrose (D50w Syringe) 25 ml Q15M PRN IV DECREASED GLUCOSE; Start 02/04/19 at 15:00 Dextrose (D50w Syringe) 50 ml Q15M PRN IV DECREASED GLUCOSE; Start 02/04/19 at 15:00 Glucagon (Glucagen) 1 mg Q15M PRN IM DECREASED GLUCOSE; Start 02/04/19 at 15:00 Glucose (Glutose) 15 gm Q15M PRN BUCCAL DECREASED GLUCOSE; Start 02/04/19 at 15:00 Acetaminophen (Tylenol Supp) 650 mg Q4H PRN DC TEMP > 37C; Start 02/04/19 at 17:30 Acetaminophen (Tylenol Liquid) 650 mg Q4H PRN PO TEMP > 37C; Start 02/04/19 at 17:30 Acetaminophen (Tylenol Supp) 500 mg Q6H DC ; Start 02/05/19 at 17:30 Acetaminophen (Tylenol Liquid) 500 mg Q6H PO Last administered on 02/06/19at 07:05; Admin Dose 500 MG; Start 02/05/19 at 17:30 Meperidine HCl (Demerol) 12.5 mg Q4H PRN IV POST OPERATIVE SHIVERING; Start 02/04/19 at 17:30 Meperidine HCl (Demerol) 25 mg Q4H PRN IV POST OPERATIVE SHIVERING; Start 02/04/19 at 17:30 Eye Lubricant (Akwa Oint) 1 applic Q6 BOTH EYES Last administered on 02/06/19 05:49; Admin Dose 1 APPLIC; Start 02/04/19 at 18:00 Eye Lubricant (Artificial Tears Oph) 2 drop Q6 BOTH EYES Last administered on 02/06/19 05:48; Admin Dose 2 DROP; Start 02/04/19 at 18:00 Midazolam HCl 50 ml @ 1 mls/hr TITRATE IV Last administered on 02/05/19 10:16; Admin Dose 4 MLS/HR; Start 02/04/19 at 22:30 Fentanyl 100 ml @ 2.5 mls/hr TITRATE IV Last administered on 02/05/19 16:28; Admin Dose 5 MLS/HR; Start 02/04/19 at 22:30 Diagnostic Test (Pha) (Accu-Chek) 1 ea Q4 XX Last administered on 02/05/19 17:52; Admin Dose 1 EA; Start 02/05/19 at 00:00 Phenylephrine HCl 40 mg/Dextrose 250 ml @ 37.5 mls/hr TITRATE IV Last administered on 02/05/19 23:54; Admin Dose 37.5 MLS/HR; Start 02/05/19 at 00:30 Levetiracetam 100 ml @ 400 mls/hr Q12 IVPB Last administered on 02/05/19 20:44; Admin Dose 400 MLS/HR; Start 02/05/19 at 09:00 Piperacillin Sod/ Tazobactam Sod 100 ml @ 200 mls/hr Q8 IVPB Last administered on 02/06/19 06:48; Admin Dose 200 MLS/HR; Start 02/05/19 at 09:30 Desmopressin Acetate (Ddavp) 2 mcg BID IV Last administered on 02/05/19 23:32; Admin Dose 2 MCG; Start 02/05/19 at 14:30 Nimodipine (Nimotop) 60 mg Q4 NGT ; Start 02/05/19 at 21:00 Dextrose 1,000 ml @ 75 mls/hr [id number] IV Last administered on 02/06/19 06:51; Admin Dose 125 MLS/HR; Start 02/05/19 at 21:30 Potassium Phosphate 40 meq/ Sodium Chloride 259.0909 ml @ 64.773 m... ONCE ONCE IVPB ; Start 02/06/19 at 09:00; Stop 02/06/19 at 12:59 CALEB APARICIO February 06, 2019 09:13
[2019-02-06] MEDS: LEVETIRACETAM 500 MG (PMX) 100 ML IVPB SCH ×2 (09:25→21:39)
[2019-02-06] MEDS: PHENYLephrine 40 MG in DEXTROSE 5% 246 ML IV SCH ×2 (10:14→16:05)
[2019-02-06] MEDS: DESMOPRESSIN 4 MCG INJ IV SCH ×2 (10:50→21:39)
--- NOTE | 2019-02-06 15:04 | PN ---
Date/Time of Note Date/Time of Note DATE: 02/06/19 TIME: 14:57 Assessment/Plan VTE Prophylaxis Risk score (from Ns)>0 risk: 6 SCD applied (from Ns): Yes Pharmacological prophylaxis: NA/contraindicated Pharm contraindication: hemorrhagic infarct Lines/Catheters IV Catheter Type (from Nrsg): Central Line Central line still needed: Yes Urinary Cath still in place: Yes Reason Cath still needed: other (indicate) Assessment/Plan Hospital Course 33-year-old female with a prior history of headaches for the last 3 days in the occipital region per report who was brought in after being found unresponsive at home, also with seizure and frothing at the mouth currently managed as follows: 1. Acute encephalopathy likely secondary to #2 acute 2. 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 No evidence of aneurysm. 3. Acute respiratory failure secondary to the above, now ventilator dependent -Today she has bilateral airspace opacification concerning for pulmonary edema versus pneumonitis. High suspicion for aspiration pneumonitis. 4. Status post cardiac arrest with ROSC 5. Elevated troponins rule out NSTEMI likely secondary to cardiac compressions 6. Systemic inflammatory response syndrome with severe lactic acidosis secondary to the above: improving 7. Hyperglycemia likely 2/2 shock, a1c 4.9 8. Hypophosphatemia 9. Systemic shock likely related to cardiac arrest currently on pressor support 10. New-onset seizure activity x1, no further seizures 11. Chronic hypertension, currently in shock 12. Acute renal insufficiency likely secondary to hypoperfusion 13. Acute hypernatremia 2/2 DI now on DDAVP 14. Metabolic acidosis 15. Mild transaminitis Plan: Continue vent and pressor support for now Neurosx is concerned for brain , neurology following EEG shows diffuse slowing d/c fentanyl and all sedating meds for now will order cerebral perfusion study palliative care consult Continue Keppra appreciate all consultants continue ICU care and micromanagement Further interventions per clinical course Overall prognosis grim, even if no brain , no siginificant quality of life estimated, family updated Care time >35mins Result Diagram: 02/06/19 1219 02/06/19 1219 Results 24hrs Laboratory Tests Test 02/05/19 17:47 02/05/19 18:00 02/05/19 20:39 02/06/19 00:00 White Blood 14.7 #H Count Red Blood Count 4.68 Hemoglobin 13.7 Hematocrit 41.5 Mean Corpuscular 88.7 Volume Mean Corpuscular 29.3 Hemoglobin Mean Corpuscular 33.0 Hemoglobin Linda nt Red Cell 14.0 Distribution Width Platelet Count 138 #L Mean Platelet 10.6 H Volume Immature 0.500 H Granulocytes % Neutrophils % 84.6 H Lymphocytes % 12.0 L Monocytes % 2.2 Eosinophils % 0.3 Basophils % 0.4 Nucleated Red 0.0 Blood Cells % Immature 0.080 H Granulocytes # Neutrophils # 12.5 H Lymphocytes # 1.8 Monocytes # 0.3 Eosinophils # 0.0 Basophils # 0.1 Nucleated Red 0.0 Blood Cells # Sodium Level 158 H Potassium Level 2.6 *L Chloride Level 132 H Carbon Dioxide 21 Level Anion Gap 5 Blood Urea 15 Nitrogen Creatinine 0.86 Est Glomerular > 60 Filtrat Rate mL/min Glucose Level 123 Bedside Glucose 117 108 Calcium Level 9.2 Phosphorus Level < 0.5 L Magnesium Level 2.0 Total Bilirubin 0.8 Direct Bilirubin 0.00 Indirect 0.8 Bilirubin Aspartate Amino 61 H Transf (AST/SGOT ) Alanine 53 Aminotransferase (ALT/SGPT) Alkaline 56 Phosphatase Total Protein 5.0 L Albumin 2.6 L Globulin 2.40 Albumin/Globulin 1.08 Ratio Blood Gas Blood arterial Blood arterial Specimen Source Arterial Blood 02/05/2019 5:30: 02/05/2019 11:50 Date Drawn 47 PM :47 PM Arterial Blood 7.445 7.404 pH (Temp corrected) Arterial Blood 25.4 L 25.5 L pCO2 (Temp correct) Arterial Blood 96.8 57.5 L pO2 (Temp corrected) Arterial Blood 17.2 L 15.7 L HCO3 Arterial Blood -5.3 L -7.5 L Base Excess Arterial Blood 97.9 92.5 L Oxygen Saturatio n Cristino Test ACCEPTAB ACCEPTAB Arterial Blood Right Radial Left Radial Gas Puncture Site Arterial 0.1 0.2 Blood Carboxyhem oglobin Arterial Blood 0.4 0.3 Methemoglobin Blood Gas A-a O2 376.8 H 343.6 H Differential Oxyhemoglobin 97.4 92.0 L Percent Blood Gas 36.0 36.1 Temperature Blood Gas 26.0 26.0 Respiration Rate Blood Gas Actual 26 26 Respiration Rate Blood Gas VENT - AC VENT - AC Modality FiO2 70.0 60.0 Blood Gas Tidal 550.0 550.0 Volume Blood Gas Low 5.0 5.0 PEEP Setting Blood Gas DEVIKA YOUNGBLOOD [facility] Notified Whom Blood Gas 02/05/2019 5:51: 02/05/2019 11:55 Notified Time 25 PM :27 PM Test 02/06/19 00:22 02/06/19 01:39 02/06/19 04:00 02/06/19 04:30 White Blood 15.3 H 16.3 H Count Red Blood Count 4.63 4.32 Hemoglobin 13.6 12.7 Hematocrit 41.2 38.3 Mean Corpuscular 89.0 88.7 Volume Mean Corpuscular 29.4 29.4 Hemoglobin Mean Corpuscular 33.0 33.2 Hemoglobin Linda nt Red Cell 14.3 14.3 Distribution Width Platelet Count 136 L 143 Mean Platelet 11.1 H 11.6 H Volume Immature 1.000 H 0.700 H Granulocytes % Neutrophils % Segmented 46 41 Neutrophils % (Manual) Band Neutrophils 35 H 41 H % (Manual) Lymphocytes % Lymphocytes % 17 14 L (Manual) Monocytes % Eosinophils % Eosinophils % 1 1 (Manual) Basophils % Metamyelocytes % 1 H (manual) Nucleated Red 0.0 0.0 Blood Cells % Immature 0.160 H 0.110 H Granulocytes # Neutrophils # Neutrophils # 7.8 H 7.8 H (Manual) Band Neutrophils 5.3 H 6.6 H # Lymphocytes 2.6 2.2 (Manual) Lymphocytes # Monocytes # Eosinophils # Basophils # Metamyelocytes # 0.1 H Nucleated Red Blood Cells # Platelet NORMAL NORMAL Estimate Poikilocytosis 1+ Sodium Level 156 H 153 H Potassium Level 2.8 *L 2.9 *L Chloride Level 130 H 127 H Carbon Dioxide 18 L 19 L Level Anion Gap 8 7 Blood Urea 14 15 Nitrogen Creatinine 0.95 0.87 Est Glomerular > 60 > 60 Filtrat Rate mL/min Glucose Level 144 122 Calcium Level 9.1 8.9 Phosphorus Level < 0.5 L 0.5 L Magnesium Level 1.8 1.6 L Total Bilirubin 0.9 0.9 Direct Bilirubin 0.00 0.00 Indirect 0.9 0.9 Bilirubin Aspartate Amino 59 H 58 H Transf (AST/SGOT ) Alanine 46 46 Aminotransferase (ALT/SGPT) Alkaline 60 60 Phosphatase Total Protein 5.3 L 4.6 L Albumin 2.7 L 2.3 L Globulin 2.60 2.30 Albumin/Globulin 1.03 1.00 Ratio Bedside Glucose 126 Lactic Acid 3.7 *H Level Monocytes % 3 (Manual) Monocytes # 0.4 (Manual) Anisocytosis 1+ Microcytosis 1+ Test 02/06/19 05:41 02/06/19 06:00 02/06/19 09:51 02/06/19 12:00 Bedside Glucose 114 70 Blood Gas Blood arterial Blood arterial Specimen Source Arterial Blood 02/06/2019 6:00:5 02/06/2019 12:15: Date Drawn 8 AM 21 PM Arterial Blood 7.352 7.357 pH (Temp corrected) Arterial Blood 31.1 L 36.9 pCO2 (Temp correct) Arterial Blood 62.9 L 44.3 *L pO2 (Temp corrected) Arterial Blood 16.9 L 20.2 L HCO3 Arterial Blood -7.5 L -4.6 L Base Excess Arterial Blood 92.5 L 82.7 L Oxygen Saturatio n Cristino Test ACCEPTAB ACCEPTAB Arterial Blood Left Radial Right Radial Gas Puncture Site Arterial 0.3 0.1 Blood Carboxyhem oglobin Arterial Blood 0.2 0.3 Methemoglobin Blood Gas A-a O2 475.1 H 631.8 H Differential Oxyhemoglobin 92.0 L 82.4 L Percent Blood Gas 36.9 37.0 Temperature Blood Gas 26.0 26.0 Respiration Rate Blood Gas Actual 26 26 Respiration Rate Blood Gas VENT - AC VENT - AC Modality FiO2 80.0 100.0 Blood Gas Tidal 500.0 550.0 Volume Blood Gas Low 5.0 10.0 PEEP Setting Blood Gas D [employer] Notified Whom Blood Gas 02/06/2019 6:05:2 02/06/2019 12:23: Notified Time 2 AM 16 PM Blood Gas RLIM RN Critical Value Read Back Test 02/06/19 12:15 02/06/19 12:19 Bedside Glucose 133 White Blood 13.9 H Count Red Blood Count 4.30 Hemoglobin 12.7 Hematocrit 37.8 Mean Corpuscular 87.9 Volume Mean Corpuscular 29.5 Hemoglobin Mean Corpuscular 33.6 Hemoglobin Linda nt Red Cell 14.7 H Distribution Width Platelet Count 137 L Mean Platelet 10.8 H Volume Immature 0.600 H Granulocytes % Neutrophils % Segmented 72 Neutrophils % (Manual) Band Neutrophils 10 H % (Manual) Lymphocytes % Lymphocytes % 11 L (Manual) Monocytes % Monocytes % 1 (Manual) Eosinophils % Eosinophils % 6 (Manual) Basophils % Nucleated Red 0.0 Blood Cells % Immature 0.090 H Granulocytes # Neutrophils # Neutrophils # 10.2 H (Manual) Band Neutrophils 1.3 H # Lymphocytes 1.5 (Manual) Lymphocytes # Monocytes # Monocytes # 0.1 L (Manual) Eosinophils # Basophils # Nucleated Red Blood Cells # Platelet DECREASED Estimate Anisocytosis 1+ Microcytosis 1+ Sodium Level 152 H Potassium Level 3.8 Chloride Level 124 H Carbon Dioxide 23 Level Anion Gap 5 Blood Urea 14 Nitrogen Creatinine 0.95 Est Glomerular > 60 Filtrat Rate mL/min Glucose Level 134 Calcium Level 8.5 Phosphorus Level 2.5 # Magnesium Level 1.9 Total Bilirubin 1.1 Direct Bilirubin 0.00 Indirect 1.1 Bilirubin Aspartate Amino 56 H Transf (AST/SGOT ) Alanine 40 Aminotransferase (ALT/SGPT) Alkaline 71 Phosphatase Total Protein 5.1 L Albumin 2.5 L Globulin 2.60 Albumin/Globulin 0.96 Ratio Subjective 24 Hr Interval Summary Free Text/Dictation s/p TH and rewarming. still no real neurologic response. Family at bedside still requiring pressor support Exam/Review of Systems Exam Vitals Vital Signs Date Temp Pulse Resp B/P (MAP) Pulse Ox O2 O2 Flow FiO2 Time Delivery Rate 02/06/19 98.8 14:22 02/06/19 86 26 105/64 100 14:15 (78) 02/06/19 Mechanical 14:00 Ventilator 02/06/19 100 13:10 Intake and Output 02/05/19 02/05/19 02/06/19 1515:00 23:00 07:00 IntakeIntake Total 1246.875 ml 1502.745 ml 1558.105 ml OutputOutput Total 1760 ml 890 ml 180 ml BalanceBalance -513.125 ml 612.745 ml 1378.105 ml Exam GENERAL: Intubated and pressors X2 HEENT: Mildly dilated pupils with no light reflex, Intubated, Vent settings noted , LUNGS: diffusely diminished HEART: S1, S2. No murmur, gallops or rubs. ABDOMEN: Soft, non distended, Normoactive bowel sounds. GENITOURINARY: Normal female external genitalia, Ruiz to bedside drainage EXTREMITIES: NO edema bilaterally, also some hand edema bilaterally NEUROLOGIC: The patient is currently sedated. Results Results 24hrs Laboratory Tests Test 02/05/19 17:47 02/05/19 18:00 02/05/19 20:39 02/06/19 00:00 White Blood 14.7 #H Count Red Blood Count 4.68 Hemoglobin 13.7 Hematocrit 41.5 Mean Corpuscular 88.7 Volume Mean Corpuscular 29.3 Hemoglobin Mean Corpuscular 33.0 Hemoglobin Linda nt Red Cell 14.0 Distribution Width Platelet Count 138 #L Mean Platelet 10.6 H Volume Immature 0.500 H Granulocytes % Neutrophils % 84.6 H Lymphocytes % 12.0 L Monocytes % 2.2 Eosinophils % 0.3 Basophils % 0.4 Nucleated Red 0.0 Blood Cells % Immature 0.080 H Granulocytes # Neutrophils # 12.5 H Lymphocytes # 1.8 Monocytes # 0.3 Eosinophils # 0.0 Basophils # 0.1 Nucleated Red 0.0 Blood Cells # Sodium Level 158 H Potassium Level 2.6 *L Chloride Level 132 H Carbon Dioxide 21 Level Anion Gap 5 Blood Urea 15 Nitrogen Creatinine 0.86 Est Glomerular > 60 Filtrat Rate mL/min Glucose Level 123 Bedside Glucose 117 108 Calcium Level 9.2 Phosphorus Level < 0.5 L Magnesium Level 2.0 Total Bilirubin 0.8 Direct Bilirubin 0.00 Indirect 0.8 Bilirubin Aspartate Amino 61 H Transf (AST/SGOT ) Alanine 53 Aminotransferase (ALT/SGPT) Alkaline 56 Phosphatase Total Protein 5.0 L Albumin 2.6 L Globulin 2.40 Albumin/Globulin 1.08 Ratio Blood Gas Blood arterial Blood arterial Specimen Source Arterial Blood 02/05/2019 5:30: 02/05/2019 11:50 Date Drawn 47 PM :47 PM Arterial Blood 7.445 7.404 pH (Temp corrected) Arterial Blood 25.4 L 25.5 L pCO2 (Temp correct) Arterial Blood 96.8 57.5 L pO2 (Temp corrected) Arterial Blood 17.2 L 15.7 L HCO3 Arterial Blood -5.3 L -7.5 L Base Excess Arterial Blood 97.9 92.5 L Oxygen Saturatio n Cristino Test ACCEPTAB ACCEPTAB Arterial Blood Right Radial Left Radial Gas Puncture Site Arterial 0.1 0.2 Blood Carboxyhem oglobin Arterial Blood 0.4 0.3 Methemoglobin Blood Gas A-a O2 376.8 H 343.6 H Differential Oxyhemoglobin 97.4 92.0 L Percent Blood Gas 36.0 36.1 Temperature Blood Gas 26.0 26.0 Respiration Rate Blood Gas Actual 26 26 Respiration Rate Blood Gas VENT - AC VENT - AC Modality FiO2 70.0 60.0 Blood Gas Tidal 550.0 550.0 Volume Blood Gas Low 5.0 5.0 PEEP Setting Blood Gas DEVIKA YOUNGBLOOD [facility] Notified Whom Blood Gas 02/05/2019 5:51: 02/05/2019 11:55 Notified Time 25 PM :27 PM Test 02/06/19 00:22 02/06/19 01:39 02/06/19 04:00 02/06/19 04:30 White Blood 15.3 H 16.3 H Count Red Blood Count 4.63 4.32 Hemoglobin 13.6 12.7 Hematocrit 41.2 38.3 Mean Corpuscular 89.0 88.7 Volume Mean Corpuscular 29.4 29.4 Hemoglobin Mean Corpuscular 33.0 33.2 Hemoglobin Linda nt Red Cell 14.3 14.3 Distribution Width Platelet Count 136 L 143 Mean Platelet 11.1 H 11.6 H Volume Immature 1.000 H 0.700 H Granulocytes % Neutrophils % Segmented 46 41 Neutrophils % (Manual) Band Neutrophils 35 H 41 H % (Manual) Lymphocytes % Lymphocytes % 17 14 L (Manual) Monocytes % Eosinophils % Eosinophils % 1 1 (Manual) Basophils % Metamyelocytes % 1 H (manual) Nucleated Red 0.0 0.0 Blood Cells % Immature 0.160 H 0.110 H Granulocytes # Neutrophils # Neutrophils # 7.8 H 7.8 H (Manual) Band Neutrophils 5.3 H 6.6 H # Lymphocytes 2.6 2.2 (Manual) Lymphocytes # Monocytes # Eosinophils # Basophils # Metamyelocytes # 0.1 H Nucleated Red Blood Cells # Platelet NORMAL NORMAL Estimate Poikilocytosis 1+ Sodium Level 156 H 153 H Potassium Level 2.8 *L 2.9 *L Chloride Level 130 H 127 H Carbon Dioxide 18 L 19 L Level Anion Gap 8 7 Blood Urea 14 15 Nitrogen Creatinine 0.95 0.87 Est Glomerular > 60 > 60 Filtrat Rate mL/min Glucose Level 144 122 Calcium Level 9.1 8.9 Phosphorus Level < 0.5 L 0.5 L Magnesium Level 1.8 1.6 L Total Bilirubin 0.9 0.9 Direct Bilirubin 0.00 0.00 Indirect 0.9 0.9 Bilirubin Aspartate Amino 59 H 58 H Transf (AST/SGOT ) Alanine 46 46 Aminotransferase (ALT/SGPT) Alkaline 60 60 Phosphatase Total Protein 5.3 L 4.6 L Albumin 2.7 L 2.3 L Globulin 2.60 2.30 Albumin/Globulin 1.03 1.00 Ratio Bedside Glucose 126 Lactic Acid 3.7 *H Level Monocytes % 3 (Manual) Monocytes # 0.4 (Manual) Anisocytosis 1+ Microcytosis 1+ Test 02/06/19 05:41 02/06/19 06:00 02/06/19 09:51 02/06/19 12:00 Bedside Glucose 114 70 Blood Gas Blood arterial Blood arterial Specimen Source Arterial Blood 02/06/2019 6:00:5 02/06/2019 12:15: Date Drawn 8 AM 21 PM Arterial Blood 7.352 7.357 pH (Temp corrected) Arterial Blood 31.1 L 36.9 pCO2 (Temp correct) Arterial Blood 62.9 L 44.3 *L pO2 (Temp corrected) Arterial Blood 16.9 L 20.2 L HCO3 Arterial Blood -7.5 L -4.6 L Base Excess Arterial Blood 92.5 L 82.7 L Oxygen Saturatio n Cristino Test ACCEPTAB ACCEPTAB Arterial Blood Left Radial Right Radial Gas Puncture Site Arterial 0.3 0.1 Blood Carboxyhem oglobin Arterial Blood 0.2 0.3 Methemoglobin Blood Gas A-a O2 475.1 H 631.8 H Differential Oxyhemoglobin 92.0 L 82.4 L Percent Blood Gas 36.9 37.0 Temperature Blood Gas 26.0 26.0 Respiration Rate Blood Gas Actual 26 26 Respiration Rate Blood Gas VENT - AC VENT - AC Modality FiO2 80.0 100.0 Blood Gas Tidal 500.0 550.0 Volume Blood Gas Low 5.0 10.0 PEEP Setting Blood Gas D [employer] TM Notified Whom Blood Gas 02/06/2019 6:05:2 02/06/2019 12:23: Notified Time 2 AM 16 PM Blood Gas RLIM RN Critical Value Read Back Test 02/06/19 12:15 02/06/19 12:19 Bedside Glucose 133 White Blood 13.9 H Count Red Blood Count 4.30 Hemoglobin 12.7 Hematocrit 37.8 Mean Corpuscular 87.9 Volume Mean Corpuscular 29.5 Hemoglobin Mean Corpuscular 33.6 Hemoglobin Linda nt Red Cell 14.7 H Distribution Width Platelet Count 137 L Mean Platelet 10.8 H Volume Immature 0.600 H Granulocytes % Neutrophils % Segmented 72 Neutrophils % (Manual) Band Neutrophils 10 H % (Manual) Lymphocytes % Lymphocytes % 11 L (Manual) Monocytes % Monocytes % 1 (Manual) Eosinophils % Eosinophils % 6 (Manual) Basophils % Nucleated Red 0.0 Blood Cells % Immature 0.090 H Granulocytes # Neutrophils # Neutrophils # 10.2 H (Manual) Band Neutrophils 1.3 H # Lymphocytes 1.5 (Manual) Lymphocytes # Monocytes # Monocytes # 0.1 L (Manual) Eosinophils # Basophils # Nucleated Red Blood Cells # Platelet DECREASED Estimate Anisocytosis 1+ Microcytosis 1+ Sodium Level 152 H Potassium Level 3.8 Chloride Level 124 H Carbon Dioxide 23 Level Anion Gap 5 Blood Urea 14 Nitrogen Creatinine 0.95 Est Glomerular > 60 Filtrat Rate mL/min Glucose Level 134 Calcium Level 8.5 Phosphorus Level 2.5 # Magnesium Level 1.9 Total Bilirubin 1.1 Direct Bilirubin 0.00 Indirect 1.1 Bilirubin Aspartate Amino 56 H Transf (AST/SGOT ) Alanine 40 Aminotransferase (ALT/SGPT) Alkaline 71 Phosphatase Total Protein 5.1 L Albumin 2.5 L Globulin 2.60 Albumin/Globulin 0.96 Ratio Medications Medication Current Medications Norepinephrine 250 ml @ 1.875 mls/ hr TITRATE IV Last administered on 02/05/19at 23:52; Admin Dose 9.375 MLS/HR; Start 02/04/19 at 12:00 Miscellaneous Information 1 ea NOTE XX ; Start 02/04/19 at 15:00 Glucose (Glutose) 15 gm Q15M PRN PO DECREASED GLUCOSE; Start 02/04/19 at 15:00 Glucose (Glutose) 22.5 gm Q15M PRN PO DECREASED GLUCOSE; Start 02/04/19 at 15:00 Dextrose (D50w Syringe) 25 ml Q15M PRN IV DECREASED GLUCOSE; Start 02/04/19 at 15:00 Dextrose (D50w Syringe) 50 ml Q15M PRN IV DECREASED GLUCOSE; Start 02/04/19 at 15:00 Glucagon (Glucagen) 1 mg Q15M PRN IM DECREASED GLUCOSE; Start 02/04/19 at 15:00 Glucose (Glutose) 15 gm Q15M PRN BUCCAL DECREASED GLUCOSE; Start 02/04/19 at 15:00 Acetaminophen (Tylenol Supp) 650 mg Q4H PRN ME TEMP > 37C; Start 02/04/19 at 17:30 Acetaminophen (Tylenol Liquid) 650 mg Q4H PRN PO TEMP > 37C; Start 02/04/19 at 17:30 Acetaminophen (Tylenol Supp) 500 mg Q6H ME ; Start 02/05/19 at 17:30 Acetaminophen (Tylenol Liquid) 500 mg Q6H PO Last administered on 02/06/19 12:39; Admin Dose 500 MG; Start 02/05/19 at 17:30 Meperidine HCl (Demerol) 12.5 mg Q4H PRN IV POST OPERATIVE SHIVERING; Start 02/04/19 at 17:30 Meperidine HCl (Demerol) 25 mg Q4H PRN IV POST OPERATIVE SHIVERING; Start 02/04/19 at 17:30 Eye Lubricant (Akwa Oint) 1 applic Q6 BOTH EYES Last administered on 02/06/19 12:02; Admin Dose 1 APPLIC; Start 02/04/19 at 18:00 Eye Lubricant (Artificial Tears Oph) 2 drop Q6 BOTH EYES Last administered on 02/06/19 12:02; Admin Dose 2 DROP; Start 02/04/19 at 18:00 Midazolam HCl 50 ml @ 1 mls/hr TITRATE IV Last administered on 02/05/19 10:16; Admin Dose 4 MLS/HR; Start 02/04/19 at 22:30 Fentanyl 100 ml @ 2.5 mls/hr TITRATE IV Last administered on 02/05/19 16:28; Admin Dose 5 MLS/HR; Start 02/04/19 at 22:30 Diagnostic Test (Pha) (Accu-Chek) 1 ea Q4 XX Last administered on 02/06/19 12:39; Admin Dose 1 EA; Start 02/05/19 at 00:00 Phenylephrine HCl 40 mg/Dextrose 250 ml @ 37.5 mls/hr TITRATE IV Last administered on 02/06/19 10:14; Admin Dose 56.25 MLS/HR; Start 02/05/19 at 00:30 Levetiracetam 100 ml @ 400 mls/hr Q12 IVPB Last administered on 02/06/19 09:25; Admin Dose 400 MLS/HR; Start 02/05/19 at 09:00 Piperacillin Sod/ Tazobactam Sod 100 ml @ 200 mls/hr Q8 IVPB Last administered on 02/06/19 14:22; Admin Dose 200 MLS/HR; Start 02/05/19 at 09:30 Desmopressin Acetate (Ddavp) 2 mcg BID IV Last administered on 02/06/19 10:50; Admin Dose 2 MCG; Start 02/05/19 at 14:30 Nimodipine (Nimotop) 60 mg Q4 NGT Last administered on 02/06/19 14:23; Admin Dose 60 MG; Start 02/05/19 at 21:00 Dextrose 1,000 ml @ 75 mls/hr [id number] IV Last administered on 02/06/19 06:51; Admin Dose 125 MLS/HR; Start 02/05/19 at 21:30 GUERO WILLOUGHBY February 06, 2019 15:04
--- NOTE | 2019-02-06 15:49 | CONS ---
Assessment/Plan Assessment/Plan Hospital Course 33 yo F with reported Hx of HTN who is admitted to the [facility] ICU following reported PEA arrest. CT head revealed extensive basal cistern SAH Now s/p targeted temperature management... She was noted to have spells concerning for seizure... for which neurology is consulted. The clinical picture is consistent with provoked seizures in the context of acute ICH. 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 EEG is without evidence of subclinical seizures. P: Consider transfer to higher level of care for consideration of endovascular therapies and close vascular surveillance (TCDs, etc.), pending goals of care conversations w/ decision makers.. OK to cont Keppra as scheduled for now Ativan iv prn prolonged seizure of cluster Cont Nimodipine 60mg q4hr x 21 days...with BP augmentation as necessary Goal euvolemia, with IVF (NS) as necessary Avoid antiplatelets/anticoagulants Other medical management and supportive care per primary Will follow clinically Consultation Date/Type/Reason Admit Date/Time Feb 04, 2019 at 13:52 Type of Consult Neurology Reason for Consultation seizure management Requesting Provider: GUERO WILLOUGHBY Date/Time of Note DATE: 02/06/19 TIME: 15:48 24 HR Interval Summary Free Text/Dictation Continues critical care. Seen by neurosurgery who believes that surgical intervention is futile. S/p EEG. Pt remains comatose on 2 pressors. Subjective hx not possible: pt non-verbal, pt critical status Exam Vital Signs Vitals Vital Signs Date Temp Pulse Resp B/P (MAP) Pulse Ox O2 O2 Flow FiO2 Time Delivery Rate 02/06/19 98.8 14:22 02/06/19 86 26 105/64 100 14:15 (78) 02/06/19 Mechanical 14:00 Ventilator 02/06/19 100 13:10 Intake and Output 02/05/19 02/05/19 02/06/19 1515:00 23:00 07:00 IntakeIntake Total 1246.875 ml 1502.745 ml 1558.105 ml OutputOutput Total 1760 ml 890 ml 180 ml BalanceBalance -513.125 ml 612.745 ml 1378.105 ml Exam PE: Gen Appearance: No Apparent Distress HEENT: Intubated Cardiovascular: Regular rate Abdomen: Soft Extremities: Dry NE: The patient was comatose. Cranial nerve examination was limited by mental status. Pupils were 6mm, fixed and dilated. There was no afferent pupillary defect. Funduscopic examination was limited. Face was grossly symmetric, w/ absent corneal and cough reflexes. Tone was normal. Muscle bulk was normal. I did not see fasciculations. The patient did not withdraw to noxious stimulation. Coordination and gait testing was limited by mental status. Arm and leg reflexes were symmetric. Hidalgo's sign was absent. Plantar responses were mute. CHRISTIN CASTELLANOS NP February 06, 2019 15:48 ANGELA BECK February 06, 2019 20:21
[2019-02-06] MEDS: NORepinephrine 8MG/250 ML (PMX 250 ML IV SCH ×2 (16:43→22:19)
[2019-02-07] VITALS (106 sets, daily range): BP systolic 82–124; BP diastolic 43–77; PULSE 82–88; RESP 25–29
[2019-02-07] MEDS: ARTIFICIAL TEARS 15 ML OPH BOTH EYES SCH ×4 (00:31→17:17)
[2019-02-07] MEDS: ACETAMINOPHEN 650MG/20.3ML CUP PO SCH ×4 (00:31→05:30)
[2019-02-07] MEDS: ACCU-CHEK XX SCH ×6 (00:32→21:00)
[2019-02-07] MEDS: OCULAR LUBRICANT 3.5 GM OPH OINT BOTH EYES SCH ×4 (00:32→17:17)
[2019-02-07] MEDS: PHENYLephrine 40 MG in DEXTROSE 5% 246 ML IV SCH ×2 (00:50→09:48)
[2019-02-07] MEDS: NORepinephrine 8MG/250 ML (PMX 250 ML IV SCH ×4 (03:30→20:40)
[2019-02-07] MEDS: ACETAMINOPHEN 650 MG SUPP PR SCH ×4 (05:25→23:30)
[2019-02-07] MEDS: PIPER-TAZO 3.375 GM IV (PMX) 100 ML IVPB SCH ×3 (05:26→21:08)
--- NOTE | 2019-02-07 07:33 | CONS ---
Consult Date/Type/Reason Admit Date/Time Feb 04, 2019 at 13:52 Initial Consult Date 02/05/19 Type of Consultation: cv Requesting Provider: GUERO WILLOUGHBY Date/Time of Note DATE: 02/07/19 TIME: 07:30 Subjective cardiology follow up note/ critical care follow up note S; d/w staff and tele reviewed. pt remains in NSR d/w family members she is still on levophed and neosyn drip in ICU intubated and nonresponsve O: General: Status with intubation on the vent in ICU HEENT: NC/AT. pupils are dilated and fixed. no corneal reflex NECK: no stridor. CV: RRR. systolic murmur; no gallop or rubs. PULM: no wheezing or rhonchi. GI: SOFT, NT, ND, no rebound or guarding Extremity: trace B/L LE edema. no clubbing. neuro: Nonresponsive Psych: calm rectal: deferred : normal EKG in February 05 2 AM shows sinus tachycardia. Nonspecific diffuse T wave abnormalities. Echocardiogram done 02/04/2019 which was personally reviewed again shows: Normal left ventricular systolic function. Normal left ventricular cavity size. Mild concentric left ventricular hypertrophy. Severe global left ventricular systolic dysfunction. Ejection fraction is visually estimated at 30-35 %. Abnormal Diastolic Function. These segments of the LV are hypokinetic mid anterior segment, apical anterior segment, inferolateral mid segment, apical lateral segment, anterolateral mid segment, inferior mid segment, inferior apex segment, inferoseptum mid segment, anteroseptum mid segment and apical septum. The left atrium is normal in size. Normal appearance and function of the mitral valve with trace physiologic regurgitation. Normal appearance of the aortic valve. No significant aortic stenosis or insufficiency. Normal appearance of the tricuspid valve. Estimated peak PA systolic pressure 41 mmHg. There is trace tricuspid regurgitation. CXR 02/06: New NG tube within the stomach Decreasing bilateral upper lobe and lower lobe infiltrates. Objective Vitals Vital Signs Date Temp Pulse Resp B/P (MAP) Pulse Ox O2 O2 Flow FiO2 Time Delivery Rate 02/07/19 87 26 111/73 96 06:45 (86) 02/07/19 98.2 06:10 02/07/19 Mechanical 06:00 Ventilator 02/07/19 70 05:02 Intake and Output 5/102/06/19 02/07/19 1515:00 23:00 07:00 IntakeIntake Total 2330.805 ml 1921.25 ml 1686.25 ml OutputOutput Total 850 ml 520 ml 680 ml BalanceBalance 1480.805 ml 1401.25 ml 1006.25 ml Results/Medications Result Diagram: 02/07/19 0454 02/07/19 0454 Results 24 hrs Laboratory Tests Test 02/06/19 09:51 02/06/19 12:00 02/06/19 12:15 02/06/19 12:19 Bedside Glucose 70 133 Blood Gas Specimen Blood arterial Source Arterial Blood 02/06/2019 12:15:21 Date Drawn PM Arterial Blood pH 7.357 (Temp corrected) Arterial Blood 36.9 pCO2 (Temp correct) Arterial Blood pO2 44.3 *L (Temp corrected) Arterial Blood 20.2 L HCO3 Arterial Blood -4.6 L Base Excess Arterial Blood 82.7 L Oxygen Saturation Cristino Test ACCEPTAB Arterial Blood Gas Right Radial Puncture Site Arterial 0.1 Blood Carboxyhemog lobin Arterial Blood 0.3 Methemoglobin Blood Gas A-a O2 631.8 H Differential Oxyhemoglobin 82.4 L Percent Blood Gas 37.0 Temperature Blood Gas 26.0 Respiration Rate Blood Gas Actual 26 Respiration Rate Blood Gas Modality VENT - AC FiO2 100.0 Blood Gas Tidal 550.0 Volume Blood Gas Low PEEP 10.0 Setting Blood Gas Critical RLIM RN Value Read Back Blood Gas Notified TM Whom Blood Gas Notified 02/06/2019 12:23:16 Time PM White Blood Count 13.9 H Red Blood Count 4.30 Hemoglobin 12.7 Hematocrit 37.8 Mean Corpuscular 87.9 Volume Mean Corpuscular 29.5 Hemoglobin Mean Corpuscular 33.6 Hemoglobin Concent Red Cell 14.7 H Distribution Width Platelet Count 137 L Mean Platelet 10.8 H Volume Immature 0.600 H Granulocytes % Neutrophils % Segmented 72 Neutrophils % (Manual) Band Neutrophils % 10 H (Manual) Lymphocytes % Lymphocytes % 11 L (Manual) Monocytes % Monocytes % 1 (Manual) Eosinophils % Eosinophils % 6 (Manual) Basophils % Nucleated Red 0.0 Blood Cells % Immature 0.090 H Granulocytes # Neutrophils # Neutrophils # 10.2 H (Manual) Band Neutrophils # 1.3 H Lymphocytes 1.5 (Manual) Lymphocytes # Monocytes # Monocytes # 0.1 L (Manual) Eosinophils # Basophils # Nucleated Red Blood Cells # Platelet Estimate DECREASED Anisocytosis 1+ Microcytosis 1+ Sodium Level 152 H Potassium Level 3.8 Chloride Level 124 H Carbon Dioxide 23 Level Anion Gap 5 Blood Urea 14 Nitrogen Creatinine 0.95 Est Glomerular > 60 Filtrat Rate mL/min Glucose Level 134 Calcium Level 8.5 Phosphorus Level 2.5 # Magnesium Level 1.9 Total Bilirubin 1.1 Direct Bilirubin 0.00 Indirect Bilirubin 1.1 Aspartate Amino 56 H Transf (AST/SGOT) Alanine 40 Aminotransferase ( ALT/SGPT) Alkaline 71 Phosphatase Total Protein 5.1 L Albumin 2.5 L Globulin 2.60 Albumin/Globulin 0.96 Ratio Test 02/06/19 17:46 02/06/19 18:00 02/06/19 22:00 02/07/19 00:45 Bedside Glucose 117 120 179 Blood Gas Specimen Blood arterial Source Arterial Blood 02/06/2019 8:00:48 Date Drawn PM Arterial Blood pH 7.332 L (Temp corrected) Arterial Blood 34.6 L pCO2 (Temp correct) Arterial Blood pO2 67.9 L (Temp corrected) Arterial Blood 17.9 L HCO3 Arterial Blood -7.1 L Base Excess Arterial Blood 94.2 L Oxygen Saturation Cristino Test N/A Arterial Blood Gas Right Brachial Puncture Site Arterial 0.2 Blood Carboxyhemog lobin Arterial Blood 0.3 Methemoglobin Blood Gas A-a O2 394.0 H Differential Oxyhemoglobin 93.7 Percent Blood Gas 37.0 Temperature Blood Gas 26.0 Respiration Rate Blood Gas Actual 26 Respiration Rate Blood Gas Modality VENT - AC FiO2 70.0 Blood Gas Tidal 550.0 Volume Blood Gas Low PEEP 12.0 Setting Blood Gas Notified MS Whom Blood Gas Notified 02/06/2019 8:18:00 Time PM Test 02/07/19 04:54 02/07/19 05:44 White Blood Count 9.5 # Red Blood Count 4.41 Hemoglobin 13.0 Hematocrit 39.0 Mean Corpuscular 88.4 Volume Mean Corpuscular 29.5 Hemoglobin Mean Corpuscular 33.3 Hemoglobin Concent Red Cell 15.1 H Distribution Width Platelet Count 90 #L Mean Platelet 11.3 H Volume Immature 0.300 Granulocytes % Neutrophils % Lymphocytes % Monocytes % Eosinophils % Basophils % Nucleated Red 0.2 H Blood Cells % Immature 0.030 Granulocytes # Neutrophils # Lymphocytes # Monocytes # Eosinophils # Basophils # Nucleated Red Blood Cells # Sodium Level 144 Potassium Level 3.5 Chloride Level 116 H Carbon Dioxide 19 L Level Anion Gap 9 Blood Urea 12 Nitrogen Creatinine 1.00 Est Glomerular > 60 Filtrat Rate mL/min Glucose Level 151 Calcium Level 8.2 L Phosphorus Level 3.3 Magnesium Level 2.1 Bedside Glucose 82 Home Meds Reported Medications Methyldopa* (Aldomet*) 500 Mg Tab, 500 MG PO TID, #90 TAB 02/04/19 Discontinued Reported Medications [Denies Meds] No Conflict Check 07/05/10 Medications Current Medications Norepinephrine 250 ml @ 1.875 mls/ hr TITRATE IV Last administered on 02/07/19at 03:30; Admin Dose 41.25 MLS/HR; Start 02/04/19 at 12:00 Miscellaneous Information 1 ea NOTE XX ; Start 02/04/19 at 15:00 Glucose (Glutose) 15 gm Q15M PRN PO DECREASED GLUCOSE; Start 02/04/19 at 15:00 Glucose (Glutose) 22.5 gm Q15M PRN PO DECREASED GLUCOSE; Start 02/04/19 at 15:00 Dextrose (D50w Syringe) 25 ml Q15M PRN IV DECREASED GLUCOSE; Start 02/04/19 at 15:00 Dextrose (D50w Syringe) 50 ml Q15M PRN IV DECREASED GLUCOSE; Start 02/04/19 at 15:00 Glucagon (Glucagen) 1 mg Q15M PRN IM DECREASED GLUCOSE; Start 02/04/19 at 15:00 Glucose (Glutose) 15 gm Q15M PRN BUCCAL DECREASED GLUCOSE; Start 02/04/19 at 15:00 Acetaminophen (Tylenol Supp) 650 mg Q4H PRN [place] TEMP > 37C; Start 02/04/19 at 1 7:30 Acetaminophen (Tylenol Liquid) 650 mg Q4H PRN PO TEMP > 37C; Start 02/04/19 at 17:30 Acetaminophen (Tylenol Supp) 500 mg Q6H [place] ; Start 02/05/19 at 17:30 Acetaminophen (Tylenol Liquid) 500 mg Q6H PO Last administered on 02/07/19at 05:25; Admin Dose 500 MG; Start 02/05/19 at 17:30 Meperidine HCl (Demerol) 12.5 mg Q4H PRN IV POST OPERATIVE SHIVERING; Start 02/04/19 at 17:30 Meperidine HCl (Demerol) 25 mg Q4H PRN IV POST OPERATIVE SHIVERING; Start 02/04/19 at 17:30 Eye Lubricant (Akwa Oint) 1 applic Q6 BOTH EYES Last administered on 02/07/19 05:27; Admin Dose 1 APPLIC; Start 02/04/19 at 18:00 Eye Lubricant (Artificial Tears Oph) 2 drop Q6 BOTH EYES Last administered on 02/07/19 05:26; Admin Dose 2 DROP; Start 02/04/19 at 18:00 Midazolam HCl 50 ml @ 1 mls/hr TITRATE IV Last administered on 02/05/19 10:16; Admin Dose 4 MLS/HR; Start 02/04/19 at 22:30 Diagnostic Test (Pha) (Accu-Chek) 1 ea Q4 XX Last administered on 02/06/19 17:47; Admin Dose 1 EA; Start 02/05/19 at 00:00 Phenylephrine HCl 40 mg/Dextrose 250 ml @ 37.5 mls/hr TITRATE IV Last administered on 02/07/19 00:50; Admin Dose 26.25 MLS/HR; Start 02/05/19 at 00:30 Levetiracetam 100 ml @ 400 mls/hr Q12 IVPB Last administered on 02/06/19 21:39; Admin Dose 400 MLS/HR; Start 02/05/19 at 09:00 Piperacillin Sod/ Tazobactam Sod 100 ml @ 200 mls/hr Q8 IVPB Last administered on 02/07/19 05:26; Admin Dose 200 MLS/HR; Start 02/05/19 at 09:30 Desmopressin Acetate (Ddavp) 2 mcg BID IV Last administered on 02/06/19 21:39; Admin Dose 2 MCG; Start 02/05/19 at 14:30 Nimodipine (Nimotop) 60 mg Q4 NGT Last administered on 02/07/19 05:25; Admin Dose 60 MG; Start 02/05/19 at 21:00 Dextrose 1,000 ml @ 75 mls/hr [id number] IV Last administered on 02/06/19 22:15; Admin Dose 75 MLS/HR; Start 02/05/19 at 21:30 Assessment/Plan Hospital Course (Demo Recall) 1. Intracranial hemorrhage/Subarachnoid hemorrhage 2. Hypoxic respiratory failure 3. Cardiomyopathy probably stress-induced versus others 4. Mildly abnormal troponin probably related to above 5. Severe encephalopathy due to above 6. Seizure due to above 7. History of hypertension currently hypotensive 8. Shock secondary to above Recommendation: Continue the vent support. Follow-up with neurology/ NEUROSURGERY recommendations COMPLETED Targeted temperature Continue with Levophed and gema to maintain the blood pressure for now replace K and Mg prn No aspirin or anticoagulant will be given given her intracranial bleed obviously Continue with ICU care More than 32 minutes critical care time was spent renal management is critically ill patient excluding procedures Thank you for his referral. We will continue to follow along with you FAITH PAT MD [facility] FAITH PAT MD February 07, 2019 07:33
--- NOTE | 2019-02-07 08:42 | PN ---
DATE: 02/07/2019 SUBJECTIVE: The patient remains critically ill on pressor support, on full ventilatory support. The patient had minimal neurologic response. Urinary output has been adequate. No other events noted. OBJECTIVE: VITAL SIGNS: Blood pressure is 118/73, respirations 26, pulse 88, temperature 98.7. HEENT: Head is normocephalic. NECK: Supple. HEART: Regular rate. LUNGS: Show diminished breath sounds at the base. ABDOMEN: Soft, nontender to palpation without rebound or guarding. EXTREMITIES: Negative for clubbing, cyanosis, no edema. DERMATOLOGIC: No rashes. MUSCULOSKELETAL: No joint effusion. NEUROLOGIC: No change in exam. MEDICATIONS: Reviewed. LABORATORY DATA: Reviewed. IMAGING STUDIES: Reviewed. MICROBIOLOGY: Reviewed. 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 The patient is curr ently on DDAVP. Sodium levels have been improving. We will continue current treatment regimen. We will decrease free water flushes 200 mL q.6h. and deescalate hypertonic IV fluids, monitor serum sodi um levels closely. 2. Hypokalemia. Continue to monitor and replete. 3. Acute intracranial hemorrhage, subarachnoid hemorrhage. The patient was seen by neurosurgery. N o plan for intervention. 4. Cardiac arrest. The patient is status post hypothermic protocol. Continue to monitor. Follow u p with Cardiology. 5. Ventilator-dependent respiratory failure. Vent settings and ABG was reviewed. Continue to monit or. 6. Acute encephalopathy, possible anoxic injury. Etiology is secondary to acute hemorrhagic bleed. Continue to monitor. 7. Shock, possibly septic and neurogenic, continue current medical management. Continue pressor sup port, antibiotic therapy. Wean off pressors as tolerated. 8. Seizure disorder. Continue medical management. 9. Hypophosphatemia, hypomagnesemia. Continue to monitor and replete as needed. 10. Lactic acidosis secondary to shock. Continue to monitor. Continue to trend. Dictated By: TERE KUNZ DO NR/NTS Conf#: [id number] DID#: [id number] CC: GUERO WILLOUGHBY MD; TARUN REESE MD;*EndCC*
[2019-02-07] MEDS: DESMOPRESSIN 4 MCG INJ IV SCH ×2 (08:58→20:25)
[2019-02-07] MEDS: LEVETIRACETAM 500 MG (PMX) 100 ML IVPB SCH ×2 (09:00→20:25)
--- NOTE | 2019-02-07 09:22 | CONS ---
Assessment/Plan Assessment/Plan Assessment/Plan (Daily) Chest x-ray was reviewed from today which is showing marked improvement in bilateral pneumonia as well as pulmonary edema. Ventilator setting; AC of 26, tidal volume 550, PEEP of 12, 60% FiO2. Patient is currently on phenylephrine drip at 50 mics per minute, Levophed 22 mics per minute. Assessment and recommendations; 1. Patient admitted with cardiac arrest due to subarachnoid hemorrhage status post CPR with ensuing severe anoxic brain injury. 2. Bilateral pneumonia/pulmonary edema with marked radiological improvement. 3. 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 Hypernatremia is improving. 4. No further seizure activity noted. 5. History of hypertension. 6. Interval improvement in metabolic acidosis. Continue current supportive care. Wean down FiO2 as well as PEEP as tolerated. Prognosis appears very poor. I did have a detailed discussion with the patient's parents at bedside and answered all their questions. 35 minutes of critical care time was spent evaluating the patient. Consultation Date/Type/Reason Admit Date/Time Feb 04, 2019 at 13:52 Initial Consult Date 02/05/19 Type of Consult Pulmonary/critical care Patient is a 33-year-old lady who was brought into the hospital after sustaining a cardiac arrest event. Further work-up revealed extensive subarachnoid hemorrhage as well as intraventricular hemorrhage. Patient currently is orally intubated and is on hypothermia protocol. Patient also exhibited new seizure activity and is currently on Keppra without any further episodes noted. Past medical history; 1. History of hypertension. Medications; reviewed. Allergies; none. Social history, family history, occupational history is not available. Review of systems; unable to be obtained. General exam; young woman, orally intubated, on hypothermia protocol. Sedated. Requesting Provider: GUERO WILLOUGHBY Date/Time of Note DATE: 02/07/19 TIME: : 24 HR Interval Summary Free Text/Dictation Patient's condition is critical. Remains completely unresponsive. General exam; young lady, orally intubated, unresponsive, currently in no distress. Exam/Review of Systems Exam Vitals Vital Signs Date Temp Pulse Resp B/P (MAP) Pulse Ox O2 O2 Flow FiO2 Time Delivery Rate 02/07/19 88 26 118/73 97 Mechanical 07:45 (88) Ventilator 02/07/19 98.7 07:00 02/07/19 70 05:02 Intake and Output 02/06/19 02/06/19 02/07/19 1515:00 23:00 07:00 IntakeIntake Total 2330.805 ml 1921.25 ml 1686.25 ml OutputOutput Total 850 ml 520 ml 680 ml BalanceBalance 1480.805 ml 1401.25 ml 1006.25 ml Exam H EENT exam; supple neck, no JVD. No lymphadenopathy. Midline trachea. No thyromegaly. Pupils are dilated and nonreactive to light. Patient has fair dentition. Orally intubated. Chest exam; clear to auscultation. S1-S2 audible, no murmurs. Regular rhythm. Abdomen exam; soft, nondistended. No organomegaly. Bowel sounds are very sluggish. Extremity exam; no peripheral edema. [employer] exam; patient remains unresponsive. Results Result Diagram: 02/07/19 0454 02/07/19 0454 Results 24hrs Laboratory Tests Test 02/06/19 09:51 02/06/19 12:00 02/06/19 12:15 02/06/19 12:19 Bedside Glucose 70 133 Blood Gas Blood arterial Specimen Source Arterial Blood 02/06/2019 12:15:2 Date Drawn 1 PM Arterial Blood 7.357 pH (Temp corrected) Arterial Blood 36.9 pCO2 (Temp correct) Arterial Blood 44.3 *L pO2 (Temp corrected) Arterial Blood 20.2 L HCO3 Arterial Blood -4.6 L Base Excess Arterial Blood 82.7 L Oxygen Saturatio n Cristino Test ACCEPTAB Arterial Blood Right Radial Gas Puncture Site Arterial 0.1 Blood Carboxyhem oglobin Arterial Blood 0.3 Methemoglobin Blood Gas A-a O2 631.8 H Differential Oxyhemoglobin 82.4 L Percent Blood Gas 37.0 Temperature Blood Gas 26.0 Respiration Rate Blood Gas Actual 26 Respiration Rate Blood Gas VENT - AC Modality FiO2 100.0 Blood Gas Tidal 550.0 Volume Blood Gas Low 10.0 PEEP Setting Blood Gas RLIM RN Critical Value Read Back Blood Gas TM Notified Whom Blood Gas 02/06/2019 12:23:1 Notified Time 6 PM White Blood 13.9 H Count Red Blood Count 4.30 Hemoglobin 12.7 Hematocrit 37.8 Mean Corpuscular 87.9 Volume Mean Corpuscular 29.5 Hemoglobin Mean Corpuscular 33.6 Hemoglobin Linda nt Red Cell 14.7 H Distribution Width Platelet Count 137 L Mean Platelet 10.8 H Volume Immature 0.600 H Granulocytes % Neutrophils % Segmented 72 Neutrophils % (Manual) Band Neutrophils 10 H % (Manual) Lymphocytes % Lymphocytes % 11 L (Manual) Monocytes % Monocytes % 1 (Manual) Eosinophils % Eosinophils % 6 (Manual) Basophils % Nucleated Red 0.0 Blood Cells % Immature 0.090 H Granulocytes # Neutrophils # Neutrophils # 10.2 H (Manual) Band Neutrophils 1.3 H # Lymphocytes 1.5 (Manual) Lymphocytes # Monocytes # Monocytes # 0.1 L (Manual) Eosinophils # Basophils # Nucleated Red Blood Cells # Platelet DECREASED Estimate Anisocytosis 1+ Microcytosis 1+ Sodium Level 152 H Potassium Level 3.8 Chloride Level 124 H Carbon Dioxide 23 Level Anion Gap 5 Blood Urea 14 Nitrogen Creatinine 0.95 Est Glomerular > 60 Filtrat Rate mL/min Glucose Level 134 Calcium Level 8.5 Phosphorus Level 2.5 # Magnesium Level 1.9 Total Bilirubin 1.1 Direct Bilirubin 0.00 Indirect 1.1 Bilirubin Aspartate Amino 56 H Transf (AST/SGOT ) Alanine 40 Aminotransferase (ALT/SGPT) Alkaline 71 Phosphatase Total Protein 5.1 L Albumin 2.5 L Globulin 2.60 Albumin/Globulin 0.96 Ratio Test 02/06/19 17:46 02/06/19 18:00 02/06/19 22:00 02/07/19 00:45 Bedside Glucose 117 120 179 Blood Gas Blood arterial Specimen Source Arterial Blood 02/06/2019 8:00:48 Date Drawn PM Arterial Blood 7.332 L pH (Temp corrected) Arterial Blood 34.6 L pCO2 (Temp correct) Arterial Blood 67.9 L pO2 (Temp corrected) Arterial Blood 17.9 L HCO3 Arterial Blood -7.1 L Base Excess Arterial Blood 94.2 L Oxygen Saturatio n Cristino Test N/A Arterial Blood Right Brachial Gas Puncture Site Arterial 0.2 Blood Carboxyhem oglobin Arterial Blood 0.3 Methemoglobin Blood Gas A-a O2 394.0 H Differential Oxyhemoglobin 93.7 Percent Blood Gas 37.0 Temperature Blood Gas 26.0 Respiration Rate Blood Gas Actual 26 Respiration Rate Blood Gas VENT - AC Modality FiO2 70.0 Blood Gas Tidal 550.0 Volume Blood Gas Low 12.0 PEEP Setting Blood Gas VT Notified Whom Blood Gas 02/06/2019 8:18:00 Notified Time PM Test 02/07/19 04:54 02/07/19 05:44 02/07/19 07:52 02/07/19 08:45 White Blood 9.5 # Count Red Blood Count 4.41 Hemoglobin 13.0 Hematocrit 39.0 Mean Corpuscular 88.4 Volume Mean Corpuscular 29.5 Hemoglobin Mean Corpuscular 33.3 Hemoglobin Linda nt Red Cell 15.1 H Distribution Width Platelet Count 90 #L Mean Platelet 11.3 H Volume Immature 0.300 Granulocytes % Neutrophils % Segmented 55 Neutrophils % (Manual) Band Neutrophils 23 H % (Manual) Lymphocytes % Lymphocytes % 14 L (Manual) Monocytes % Monocytes % 3 (Manual) Eosinophils % Eosinophils % 5 (Manual) Basophils % Nucleated Red 0.2 H Blood Cells % Immature 0.030 Granulocytes # Neutrophils # Neutrophils # 5.4 (Manual) Band Neutrophils 2.1 H # Lymphocytes 1.3 (Manual) Lymphocytes # Monocytes # Monocytes # 0.2 L (Manual) Eosinophils # Basophils # Nucleated Red Blood Cells # Platelet DECREASED Estimate Polychromasia 1+ Anisocytosis 1+ Microcytosis 1+ Sodium Level 144 Potassium Level 3.5 Chloride Level 116 H Carbon Dioxide 19 L Level Anion Gap 9 Blood Urea 12 Nitrogen Creatinine 1.00 Est Glomerular > 60 Filtrat Rate mL/min Glucose Level 151 Calcium Level 8.2 L Phosphorus Level 3.3 Magnesium Level 2.1 Bedside Glucose 82 131 Blood Gas Blood arterial Specimen Source Arterial Blood 02/07/2019 8:20:08 Date Drawn AM Arterial Blood 7.356 pH (Temp corrected) Arterial Blood 31.5 L pCO2 (Temp correct) Arterial Blood 74.5 L pO2 (Temp corrected) Arterial Blood 17.2 L HCO3 Arterial Blood -7.1 L Base Excess Arterial Blood 95.3 Oxygen Saturatio n Cristino Test ACCEPTAB Arterial Blood Right Radial Gas Puncture Site Arterial 0.5 Blood Carboxyhem oglobin Arterial Blood 0.2 Methemoglobin Blood Gas A-a O2 390.7 H Differential Oxyhemoglobin 94.6 Percent Blood Gas 37.0 Temperature Blood Gas 26.0 Respiration Rate Blood Gas Actual 26 Respiration Rate Blood Gas VENT - AC Modality FiO2 70.0 Blood Gas Tidal 550.0 Volume Blood Gas Low 12.0 PEEP Setting Blood Gas TM Notified Whom Blood Gas 02/07/2019 8:29:45 Notified Time AM Medications Medication Current Medications Norepinephrine 250 ml @ 1.875 mls/ hr TITRATE IV Last administered on 02/07/19at 09:05; Admin Dose 75 MLS/HR; Start 02/04/19 at 12:00 Miscellaneous Information 1 ea NOTE XX ; Start 02/04/19 at 15:00 Glucose (Glutose) 15 gm Q15M PRN PO DECREASED GLUCOSE; Start 02/04/19 at 15:00 Glucose (Glutose) 22.5 gm Q15M PRN PO DECREASED GLUCOSE; Start 02/04/19 at 15:00 Dextrose (D50w Syringe) 25 ml Q15M PRN IV DECREASED GLUCOSE; Start 02/04/19 at 15:00 Dextrose (D50w Syringe) 50 ml Q15M PRN IV DECREASED GLUCOSE; Start 02/04/19 at 15:00 Glucagon (Glucagen) 1 mg Q15M PRN IM DECREASED GLUCOSE; Start 02/04/19 at 15:00 Glucose (Glutose) 15 gm Q15M PRN BUCCAL DECREASED GLUCOSE; Start 02/04/19 at 15:00 Acetaminophen (Tylenol Supp) 650 mg Q4H PRN [place] TEMP > 37C; Start 02/04/19 at 17:30 Acetaminophen (Tylenol Supp) 500 mg Q6H [place] ; Start 02/05/19 at 17:30 Meperidine HCl (Demerol) 12.5 mg Q4H PRN IV POST OPERATIVE SHIVERING; Start 02/04/19 at 17:30 Meperidine HCl (Demerol) 25 mg Q4H PRN IV POST OPERATIVE SHIVERING; Start 02/04/19 at 17:30 Eye Lubricant (Akwa Oint) 1 applic Q6 BOTH EYES Last administered on 02/07/19at 05:27; Admin Dose 1 APPLIC; Start 02/04/19 at 18:00 Eye Lubricant (Artificial Tears Oph) 2 drop Q6 BOTH EYES Last administered on 02/07/19at 05:26; Admin Dose 2 DROP; Start 02/04/19 at 18:00 Midazolam HCl 50 ml @ 1 mls/hr TITRATE IV Last administered on 02/05/19at 10:16; Admin Dose 4 MLS/HR; Start 02/04/19 at 22:30 Diagnostic Test (Pha) (Accu-Chek) 1 ea Q4 XX Last administered on 02/06/19at 17:47; Admin Dose 1 EA; Start 02/05/19 at 00:00 Phenylephrine HCl 40 mg/Dextrose 250 ml @ 37.5 mls/hr TITRATE IV Last administered on 02/07/19at 00:50; Admin Dose 26.25 MLS/HR; Start 02/05/19 at 00:30 Levetiracetam 100 ml @ 400 mls/hr Q12 IVPB Last administered on 02/07/19 09:00; Admin Dose 400 MLS/HR; Start 02/05/19 at 09:00 Piperacillin Sod/ Tazobactam Sod 100 ml @ 200 mls/hr Q8 IVPB Last administered on 02/07/19at 05:26; Admin Dose 200 MLS/HR; Start 02/05/19 at 09:30 Desmopressin Acetate (Ddavp) 2 mcg BID IV Last administered on 02/07/19at 08:58; Admin Dose 2 MCG; Start 02/05/19 at 14:30 Nimodipine (Nimotop) 60 mg Q4 NGT Last administered on 02/07/19at 09:02; Admin Dose 60 MG; Start 02/05/19 at 21:00 Dextrose 1,000 ml @ 40 mls/hr Q24H IV Last administered on 02/06/19at 22:15; Admin Dose 75 MLS/HR; Start 02/05/19 at 21:30 Acetaminophen (Tylenol Liquid) 650 mg Q4H PRN NGT TEMP > 37C; Start 02/07/19 at 09:30 Acetaminophen (Tylenol Liquid) 500 mg Q6 NGT ; Start 02/07/19 at 12:00 CALEB APARICIO February 07, 2019 09:22
--- NOTE | 2019-02-07 09:27 | CONS ---
Assessment/Plan Assessment/Plan Assessment/Plan (Daily) Status post cardiac arrest Subarachnoid hemorrhage status post cardiopulmonary resuscitation Respiratory failure intubated Prognosis extremely poor Recommendations from neurology's continue Keppra IV Ativan as necessary for seizures We will speak to family members concerning ongoing level of care. Consultation Date/Type/Reason Admit Date/Time Feb 04, 2019 at 13:52 Date/Time of Note DATE: 02/07/19 TIME: 09:24 Hx of Present Illness All information is taken from patient's medical records. She is a 33-year-old female was admitted to [facility] intensive care unit with new onset of seizures P. ACLS was begun with spontaneous recirculation patient was intubated required pressor support CT scan of the head showing subarachnoid hemorrhage. Patient was admitted to ICU on 02/04/2019. Reviewing her medical records. Seen by neurosurgery exam consistent with brain and palliative care consultation was recommended at that time. Patient is been seen by neurology EEG was done at that time was without evidence of subclinical seizures. Recommendations were considered patient to be transferred to higher level of care consideration of endovascular therapy and close vascular surveillance, Keppra was continued. As of today 02/07/2018 patient remains intubated she has made no significant neurological improvement, developed Sirs, fluid and electrolyte abnormalities continue hyperbaric twice anemia hypo- phosphatemia, hypernatremia. Patient is continued to require pressor support second EEG is pending at this time Past Medical History Home Meds Reported Medications Methyldopa* (Aldomet*) 500 Mg Tab, 500 MG PO TID, #90 TAB 02/04/19 Discontinued Reported Medications [Denies Meds] No Conflict Check 07/05/10 Medications Current Medications Norepinephrine 250 ml @ 1.875 mls/ hr TITRATE IV Last administered on 02/07/19at 09:05; Admin Dose 75 MLS/HR; Start 02/04/19 at 12:00 Miscellaneous Information 1 ea NOTE XX ; Start 02/04/19 at 15:00 Glucose (Glutose) 15 gm Q15M PRN PO DECREASED GLUCOSE; Start 02/04/19 at 15:00 Glucose (Glutose) 22.5 gm Q15M PRN PO DECREASED GLUCOSE; Start 02/04/19 at 15:00 Dextrose (D50w Syringe) 25 ml Q15M PRN IV DECREASED GLUCOSE; Start 02/04/19 at 15:00 Dextrose (D50w Syringe) 50 ml Q15M PRN IV DECREASED GLUCOSE; Start 02/04/19 at 15:00 Glucagon (Glucagen) 1 mg Q15M PRN IM DECREASED GLUCOSE; Start 02/04/19 at 15:00 Glucose (Glutose) 15 gm Q15M PRN BUCCAL DECREASED GLUCOSE; Start 02/04/19 at 15:00 Acetaminophen (Tylenol Supp) 650 mg Q4H PRN MO TEMP > 37C; Start 02/04/19 at 17:30 Acetaminophen (Tylenol Supp) 500 mg Q6H MO ; Start 02/05/19 at 17:30 Meperidine HCl (Demerol) 12.5 mg Q4H PRN IV POST OPERATIVE SHIVERING; Start 02/04/19 at 17:30 Meperidine HCl (Demerol) 25 mg Q4H PRN IV POST OPERATIVE SHIVERING; Start 02/04/19 at 17:30 Eye Lubricant (Akwa Oint) 1 applic Q6 BOTH EYES Last administered on 02/07/19at 05:27; Admin Dose 1 APPLIC; Start 02/04/19 at 18:00 Eye Lubricant (Artificial Tears Oph) 2 drop Q6 BOTH EYES Last administered on 02/07/19at 05:26; Admin Dose 2 DROP; Start 02/04/19 at 18:00 Midazolam HCl 50 ml @ 1 mls/hr TITRATE IV Last administered on 02/05/19at 10:16; Admin Dose 4 MLS/HR; Start 02/04/19 at 22:30 Diagnostic Test (Pha) (Accu-Chek) 1 ea Q4 XX Last administered on 02/06/19at 17:47; Admin Dose 1 EA; Start 02/05/19 at 00:00 Phenylephrine HCl 40 mg/Dextrose 250 ml @ 37.5 mls/hr TITRATE IV Last administered on 02/07/19at 00:50; Admin Dose 26.25 MLS/HR; Start 02/05/19 at 00:30 Levetiracetam 100 ml @ 400 mls/hr Q12 IVPB Last administered on 02/07/19at 09:00; Admin Dose 400 MLS/HR; Start 02/05/19 at 09:00 Piperacillin Sod/ Tazobactam Sod 100 ml @ 200 mls/hr Q8 IVPB Last administered on 02/07/19at 05:26; Admin Dose 200 MLS/HR; Start 02/05/19 at 09:30 Desmopressin Acetate (Ddavp) 2 mcg BID IV Last administered on 02/07/19at 08:58; Admin Dose 2 MCG; Start 02/05/19 at 14:30 Nimodipine (Nimotop) 60 mg Q4 NGT Last administered on 02/07/19at 09:02; Admin Dose 60 MG; Start 02/05/19 at 21:00 Dextrose 1,000 ml @ 40 mls/hr Q24H IV Last administered on 02/06/19at 22:15; Admin Dose 75 MLS/HR; Start 02/05/19 at 21:30 Acetaminophen (Tylenol Liquid) 650 mg Q4H PRN NGT TEMP > 37C; Start 02/07/19 at 09:30 Acetaminophen (Tylenol Liquid) 500 mg Q6 NGT ; Start 02/07/19 at 12:00 Allergies: Coded Allergies: No Known Allergy (Verified , 02/04/19) Past Surgical History Past Surgical Hx: other (c section) Social History Alcohol Use: occasionally Smoking Status: Never smoker Drug Use: other (unk) Exam/Review of Systems Exam Vitals Vital Signs Date Temp Pulse Resp B/P (MAP) Pulse Ox O2 O2 Flow FiO2 Time Delivery Rate 02/07/19 88 26 118/73 97 Mechanical 07:45 (88) Ventilator 02/07/19 98.7 07:00 02/07/19 70 05:02 Intake and Output 02/06/19 02/06/19 02/07/19 1515:00 23:00 07:00 IntakeIntake Total 2330.805 ml 1921.25 ml 1686.25 ml OutputOutput Total 850 ml 520 ml 680 ml BalanceBalance 1480.805 ml 1401.25 ml 1006.25 ml Constitutional: other Respiratory: clear to auscultation, normal air movement Cardiovascular: regular rate and rhythm, nl pulses Neurological: other (Oriented x0 cranial nerves II through XII negative, pupils fixed and dilated no oculocephalics on examination patient is not overbreathing the ventilator negative gag) Results Result Diagram: 02/07/19 0454 02/07/19 0454 Results 24hrs Laboratory Tests Test 02/06/19 09:51 02/06/19 12:00 02/06/19 12:15 02/06/19 12:19 Bedside Glucose 70 133 Blood Gas Blood arterial Specimen Source Arterial Blood 02/06/2019 12:15:2 Date Drawn 1 PM Arterial Blood 7.357 pH (Temp corrected) Arterial Blood 36.9 pCO2 (Temp correct) Arterial Blood 44.3 *L pO2 (Temp corrected) Arterial Blood 20.2 L HCO3 Arterial Blood -4.6 L Base Excess Arterial Blood 82.7 L Oxygen Saturatio n Cristino Test ACCEPTAB Arterial Blood Right Radial Gas Puncture Site Arterial 0.1 Blood Carboxyhem oglobin Arterial Blood 0.3 Methemoglobin Blood Gas A-a O2 631.8 H Differential Oxyhemoglobin 82.4 L Percent Blood Gas 37.0 Temperature Blood Gas 26.0 Respiration Rate Blood Gas Actual 26 Respiration Rate Blood Gas VENT - AC Modality FiO2 100.0 Blood Gas Tidal 550.0 Volume Blood Gas Low 10.0 PEEP Setting Blood Gas RLIM RN Critical Value Read Back Blood Gas TM Notified Whom Blood Gas 02/06/2019 12:23:1 Notified Time 6 PM White Blood 13.9 H Count Red Blood Count 4.30 Hemoglobin 12.7 Hematocrit 37.8 Mean Corpuscular 87.9 Volume Mean Corpuscular 29.5 Hemoglobin Mean Corpuscular 33.6 Hemoglobin Linda nt Red Cell 14.7 H Distribution Width Platelet Count 137 L Mean Platelet 10.8 H Volume Immature 0.600 H Granulocytes % Neutrophils % Segmented 72 Neutrophils % (Manual) Band Neutrophils 10 H % (Manual) Lymphocytes % Lymphocytes % 11 L (Manual) Monocytes % Monocytes % 1 (Manual) Eosinophils % Eosinophils % 6 (Manual) Basophils % Nucleated Red 0.0 Blood Cells % Immature 0.090 H Granulocytes # Neutrophils # Neutrophils # 10.2 H (Manual) Band Neutrophils 1.3 H # Lymphocytes 1.5 (Manual) Lymphocytes # Monocytes # Monocytes # 0.1 L (Manual) Eosinophils # Basophils # Nucleated Red Blood Cells # Platelet DECREASED Estimate Anisocytosis 1+ Microcytosis 1+ Sodium Level 152 H Potassium Level 3.8 Chloride Level 124 H Carbon Dioxide 23 Level Anion Gap 5 Blood Urea 14 Nitrogen Creatinine 0.95 Est Glomerular > 60 Filtrat Rate mL/min Glucose Level 134 Calcium Level 8.5 Phosphorus Level 2.5 # Magnesium Level 1.9 Total Bilirubin 1.1 Direct Bilirubin 0.00 Indirect 1.1 Bilirubin Aspartate Amino 56 H Transf (AST/SGOT ) Alanine 40 Aminotransferase (ALT/SGPT) Alkaline 71 Phosphatase Total Protein 5.1 L Albumin 2.5 L Globulin 2.60 Albumin/Globulin 0.96 Ratio Test 02/06/19 17:46 02/06/19 18:00 02/06/19 22:00 02/07/19 00:45 Bedside Glucose 117 120 179 Blood Gas Blood arterial Specimen Source Arterial Blood 02/06/2019 8:00:48 Date Drawn PM Arterial Blood 7.332 L pH (Temp corrected) Arterial Blood 34.6 L pCO2 (Temp correct) Arterial Blood 67.9 L pO2 (Temp corrected) Arterial Blood 17.9 L HCO3 Arterial Blood -7.1 L Base Excess Arterial Blood 94.2 L Oxygen Saturatio n Cristino Test N/A Arterial Blood Right Brachial Gas Puncture Site Arterial 0.2 Blood Carboxyhem oglobin Arterial Blood 0.3 Methemoglobin Blood Gas A-a O2 394.0 H Differential Oxyhemoglobin 93.7 Percent Blood Gas 37.0 Temperature Blood Gas 26.0 Respiration Rate Blood Gas Actual 26 Respiration Rate Blood Gas VENT - AC Modality FiO2 70.0 Blood Gas Tidal 550.0 Volume Blood Gas Low 12.0 PEEP Setting Blood Gas CT Notified Whom Blood Gas 02/06/2019 8:18:00 Notified Time PM Test 02/07/19 04:54 02/07/19 05:44 02/07/19 07:52 02/07/19 08:45 White Blood 9.5 # Count Red Blood Count 4.41 Hemoglobin 13.0 Hematocrit 39.0 Mean Corpuscular 88.4 Volume Mean Corpuscular 29.5 Hemoglobin Mean Corpuscular 33.3 Hemoglobin Linda nt Red Cell 15.1 H Distribution Width Platelet Count 90 #L Mean Platelet 11.3 H Volume Immature 0.300 Granulocytes % Neutrophils % Segmented 55 Neutrophils % (Manual) Band Neutrophils 23 H % (Manual) Lymphocytes % Lymphocytes % 14 L (Manual) Monocytes % Monocytes % 3 (Manual) Eosinophils % Eosinophils % 5 (Manual) Basophils % Nucleated Red 0.2 H Blood Cells % Immature 0.030 Granulocytes # Neutrophils # Neutrophils # 5.4 (Manual) Band Neutrophils 2.1 H # Lymphocytes 1.3 (Manual) Lymphocytes # Monocytes # Monocytes # 0.2 L (Manual) Eosinophils # Basophils # Nucleated Red Blood Cells # Platelet DECREASED Estimate Polychromasia 1+ Anisocytosis 1+ Microcytosis 1+ Sodium Level 144 Potassium Level 3.5 Chloride Level 116 H Carbon Dioxide 19 L Level Anion Gap 9 Blood Urea 12 Nitrogen Creatinine 1.00 Est Glomerular > 60 Filtrat Rate mL/min Glucose Level 151 Calcium Level 8.2 L Phosphorus Level 3.3 Magnesium Level 2.1 Bedside Glucose 82 131 Blood Gas Blood arterial Specimen Source Arterial Blood 02/07/2019 8:20:08 Date Drawn AM Arterial Blood 7.356 pH (Temp corrected) Arterial Blood 31.5 L pCO2 (Temp correct) Arterial Blood 74.5 L pO2 (Temp corrected) Arterial Blood 17.2 L HCO3 Arterial Blood -7.1 L Base Excess Arterial Blood 95.3 Oxygen Saturatio n Cristino Test ACCEPTAB Arterial Blood Right Radial Gas Puncture Site Arterial 0.5 Blood Carboxyhem oglobin Arterial Blood 0.2 Methemoglobin Blood Gas A-a O2 390.7 H Differential Oxyhemoglobin 94.6 Percent Blood Gas 37.0 Temperature Blood Gas 26.0 Respiration Rate Blood Gas Actual 26 Respiration Rate Blood Gas VENT - AC Modality FiO2 70.0 Blood Gas Tidal 550.0 Volume Blood Gas Low 12.0 PEEP Setting Blood Gas TM Notified Whom Blood Gas 02/07/2019 8:29:45 Notified Time AM Medications Medication Current Medications Norepinephrine 250 ml @ 1.875 mls/ hr TITRATE IV Last administered on 02/07/19at 09:05; Admin Dose 75 MLS/HR; Start 02/04/19 at 12:00 Miscellaneous Information 1 ea NOTE XX ; Start 02/04/19 at 15:00 Glucose (Glutose) 15 gm Q15M PRN PO DECREASED GLUCOSE; Start 02/04/19 at 15:00 Glucose (Glutose) 22.5 gm Q15M PRN PO DECREASED GLUCOSE; Start 02/04/19 at 15:00 Dextrose (D50w Syringe) 25 ml Q15M PRN IV DECREASED GLUCOSE; Start 02/04/19 at 15:00 Dextrose (D50w Syringe) 50 ml Q15M PRN IV DECREASED GLUCOSE; Start 02/04/19 at 15:00 Glucagon (Glucagen) 1 mg Q15M PRN IM DECREASED GLUCOSE; Start 02/04/19 at 15:00 Glucose (Glutose) 15 gm Q15M PRN BUCCAL DECREASED GLUCOSE; Start 02/04/19 at 15:00 Acetaminophen (Tylenol Supp) 650 mg Q4H PRN MO TEMP > 37C; Start 02/04/19 at 17:30 Acetaminophen (Tylenol Supp) 500 mg Q6H MO ; Start 02/05/19 at 17:30 Meperidine HCl (Demerol) 12.5 mg Q4H PRN IV POST OPERATIVE SHIVERING; Start 02/04/19 at 17:30 Meperidine HCl (Demerol) 25 mg Q4H PRN IV POST OPERATIVE SHIVERING; Start 02/04/19 at 17:30 Eye Lubricant (Akwa Oint) 1 applic Q6 BOTH EYES Last administered on 02/07/19 05:27; Admin Dose 1 APPLIC; Start 02/04/19 at 18:00 Eye Lubricant (Artificial Tears Oph) 2 drop Q6 BOTH EYES Last administered on 02/07/19 05:26; Admin Dose 2 DROP; Start 02/04/19 at 18:00 Midazolam HCl 50 ml @ 1 mls/hr TITRATE IV Last administered on 02/05/19 10:16; Admin Dose 4 MLS/HR; Start 02/04/19 at 22:30 Diagnostic Test (Pha) (Accu-Chek) 1 ea Q4 XX Last administered on 02/06/19 17:47; Admin Dose 1 EA; Start 02/05/19 at 00:00 Phenylephrine HCl 40 mg/Dextrose 250 ml @ 37.5 mls/hr TITRATE IV Last administered on 02/07/19 00:50; Admin Dose 26.25 MLS/HR; Start 02/05/19 at 00:30 Levetiracetam 100 ml @ 400 mls/hr Q12 IVPB Last administered on 02/07/19 09:00; Admin Dose 400 MLS/HR; Start 02/05/19 at 09:00 Piperacillin Sod/ Tazobactam Sod 100 ml @ 200 mls/hr Q8 IVPB Last administered on 02/07/19 05:26; Admin Dose 200 MLS/HR; Start 02/05/19 at 09:30 Desmopressin Acetate (Ddavp) 2 mcg BID IV Last administered on 02/07/19 08:58; Admin Dose 2 MCG; Start 02/05/19 at 14:30 Nimodipine (Nimotop) 60 mg Q4 NGT Last administered on 02/07/19at 09:02; Admin Dose 60 MG; Start 02/05/19 at 21:00 Dextrose 1,000 ml @ 40 mls/hr Q24H IV Last administered on 02/06/19at 22:15; Admin Dose 75 MLS/HR; Start 02/05/19 at 21:30 Acetaminophen (Tylenol Liquid) 650 mg Q4H PRN NGT TEMP > 37C; Start 02/07/19 at 09:30 Acetaminophen (Tylenol Liquid) 500 mg Q6 NGT ; Start 02/07/19 at 12:00 JOSE VALDES February 07, 2019 09:27
[2019-02-07] MEDS ORDERED: ACETAMINOPHEN 650MG/20.3ML CUP NGT PRN (09:30)
[2019-02-07] MEDS: DEXTROSE 5% 1,000 ML IV SCH (11:22)
[2019-02-07] MEDS: ACETAMINOPHEN 650MG/20.3ML CUP NGT SCH ×2 (11:38→17:11)
--- NOTE | 2019-02-07 13:52 | PN ---
Date/Time of Note Date/Time of Note DATE: 02/07/19 TIME: 09:48 Assessment/Plan VTE Prophylaxis Risk score (from Ns)>0 risk: 3 SCD applied (from Ns): Yes Pharmacological prophylaxis: NA/contraindicated Pharm contraindication: hemorrhagic infarct Lines/Catheters IV [facility]ter [facility]from [facility]): Peripheral IV Urinary Cath still in place: Yes Reason Cath still needed: other (indicate) Assessment/Plan Hospital Course S: no changes, remains unresponsive off sedation and on pressor support Objective: GENERAL: Intubated and pressors X2 HEENT: Mildly dilated pupils with no light reflex, Intubated, Vent settings noted , LUNGS: diffusely diminished HEART: S1, S2. No murmur, gallops or rubs. ABDOMEN: Soft, non distended, Normoactive bowel sounds. GENITOURINARY: Normal female external genitalia, Ruiz to bedside drainage EXTREMITIES: NO edema bilaterally, also some hand edema bilaterally NEUROLOGIC: The patient is currently sedated. assessment and plan: 33-year-old female with a prior history of headaches for the last 3 days in the occipital region per report who was brought in after being found unresponsive at home, also with seizure and frothing at the mouth currently managed as follows: 1. Acute encephalopathy likely secondary to #2 acute 2. 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 No evidence of aneurysm. 3. Acute respiratory failure secondary to the above, now ventilator dependent -Today she has bilateral airspace opacification concerning for pulmonary edema versus pneumonitis. High suspicion for aspiration pneumonitis. 4. Status post cardiac arrest with ROSC -s/p TH and subsequent rewarming 5. Elevated troponins rule out NSTEMI likely secondary to cardiac compressions 6. Systemic inflammatory response syndrome with severe lactic acidosis secondary to the above: improving 7. Hyperglycemia likely 2/2 shock, a1c 4.9 8. Hypophosphatemia 9. Systemic shock likely related to cardiac arrest currently on pressor s upport 10. New-onset seizure activity x1, no further seizures 11. Chronic hypertension, currently in shock 12. Acute renal insufficiency likely secondary to hypoperfusion 13. Acute hypernatremia 2/2 DI now on DDAVP 14. Metabolic acidosis 15. Mild transaminitis Plan: Continue vent and pressor support for now Neurosx is concerned for brain , neurology following EEG shows diffuse slowing Cerebral perfusion study pending palliative care consult Continue Paige appreciate all consultants continue ICU care and micromanagement Further interventions per clinical course Overall prognosis grim, even if no brain , no significant quality of life estimated, family updated Care time >35mins Result Diagram: 02/07/19 0454 02/07/19 0454 Results 24hrs Laboratory Tests Test 02/06/19 17:46 02/06/19 18:00 02/06/19 22:00 02/07/19 00:45 Bedside Glucose 117 120 179 Blood Gas Blood arterial Specimen Source Arterial Blood 02/06/2019 8:00:48 Date Drawn PM Arterial Blood 7.332 L pH (Temp corrected) Arterial Blood 34.6 L pCO2 (Temp correct) Arterial Blood 67.9 L pO2 (Temp corrected) Arterial Blood 17.9 L HCO3 Arterial Blood -7.1 L Base Excess Arterial Blood 94.2 L Oxygen Saturatio n Cristino Test N/A Arterial Blood Right Brachial Gas Puncture Site Arterial 0.2 Blood Carboxyhem oglobin Arterial Blood 0.3 Methemoglobin Blood Gas A-a O2 394.0 H Differential Oxyhemoglobin 93.7 Percent Blood Gas 37.0 Temperature Blood Gas 26.0 Respiration Rate Blood Gas Actual 26 Respiration Rate Blood Gas VENT - AC Modality FiO2 70.0 Blood Gas Tidal 550.0 Volume Blood Gas Low 12.0 PEEP Setting Blood Gas CA Notified Whom Blood Gas 02/06/2019 8:18:00 Notified Time PM Test 02/07/19 04:54 02/07/19 05:44 02/07/19 07:52 02/07/19 08:45 White Blood 9.5 # Count Red Blood Count 4.41 Hemoglobin 13.0 Hematocrit 39.0 Mean Corpuscular 88.4 Volume Mean Corpuscular 29.5 Hemoglobin Mean Corpuscular 33.3 Hemoglobin Linda nt Red Cell 15.1 H Distribution Width Platelet Count 90 #L Mean Platelet 11.3 H Volume Immature 0.300 Granulocytes % Neutrophils % Segmented 55 Neutrophils % (Manual) Band Neutrophils 23 H % (Manual) Lymphocytes % Lymphocytes % 14 L (Manual) Monocytes % Monocytes % 3 (Manual) Eosinophils % Eosinophils % 5 (Manual) Basophils % Nucleated Red 0.2 H Blood Cells % Immature 0.030 Granulocytes # Neutrophils # Neutrophils # 5.4 (Manual) Band Neutrophils 2.1 H # Lymphocytes 1.3 (Manual) Lymphocytes # Monocytes # Monocytes # 0.2 L (Manual) Eosinophils # Basophils # Nucleated Red Blood Cells # Platelet DECREASED Estimate Polychromasia 1+ Anisocytosis 1+ Microcytosis 1+ Sodium Level 144 Potassium Level 3.5 Chloride Level 116 H Carbon Dioxide 19 L Level Anion Gap 9 Blood Urea 12 Nitrogen Creatinine 1.00 Est Glomerular > 60 Filtrat Rate mL/min Glucose Level 151 Calcium Level 8.2 L Phosphorus Level 3.3 Magnesium Level 2.1 Bedside Glucose 82 131 Blood Gas Blood arterial Specimen Source Arterial Blood 02/07/2019 8:20:08 Date Drawn AM Arterial Blood 7.356 pH (Temp corrected) Arterial Blood 31.5 L pCO2 (Temp correct) Arterial Blood 74.5 L pO2 (Temp corrected) Arterial Blood 17.2 L HCO3 Arterial Blood -7.1 L Base Excess Arterial Blood 95.3 Oxygen Saturatio n Cristino Test ACCEPTAB Arterial Blood Right Radial Gas Puncture Site Arterial 0.5 Blood Carboxyhem oglobin Arterial Blood 0.2 Methemoglobin Blood Gas A-a O2 390.7 H Differential Oxyhemoglobin 94.6 Percent Blood Gas 37.0 Temperature Blood Gas 26.0 Respiration Rate Blood Gas Actual 26 Respiration Rate Blood Gas VENT - AC Modality FiO2 70.0 Blood Gas Tidal 550.0 Volume Blood Gas Low 12.0 PEEP Setting Blood Gas TM Notified Whom Blood Gas 02/07/2019 8:29:45 Notified Time AM Test 02/07/19 12:29 Bedside Glucose 127 Exam/Review of Systems Exam Vitals Vital Signs Date Temp Pulse Resp B/P (MAP) Pulse Ox O2 O2 Flow FiO2 Time Delivery Rate 02/07/19 98.5 87 26 119/68 94 Mechanical 12:00 (85) Ventilator 02/07/19 70 11:00 Intake and Output 02/06/19 02/06/19 02/07/19 1515:00 23:00 07:00 IntakeIntake Total 2330.805 ml 1921.25 ml 1686.25 ml OutputOutput Total 850 ml 520 ml 680 ml BalanceBalance 1480.805 ml 1401.25 ml 1006.25 ml Results Results 24hrs Laboratory Tests Test 02/06/19 17:46 02/06/19 18:00 5/1/19 22:00 02/07/19 00:45 Bedside Glucose 117 120 179 Blood Gas Blood arterial Specimen Source Arterial Blood 02/06/2019 8:00:48 Date Drawn PM Arterial Blood 7.332 L pH (Temp corrected) Arterial Blood 34.6 L pCO2 (Temp correct) Arterial Blood 67.9 L pO2 (Temp corrected) Arterial Blood 17.9 L HCO3 Arterial Blood -7.1 L Base Excess Arterial Blood 94.2 L Oxygen Saturatio n Cristino Test N/A Arterial Blood Right Brachial Gas Puncture Site Arterial 0.2 Blood Carboxyhem oglobin Arterial Blood 0.3 Methemoglobin Blood Gas A-a O2 394.0 H Differential Oxyhemoglobin 93.7 Percent Blood Gas 37.0 Temperature Blood Gas 26.0 Respiration Rate Blood Gas Actual 26 Respiration Rate Blood Gas VENT - AC Modality FiO2 70.0 Blood Gas Tidal 550.0 Volume Blood Gas Low 12.0 PEEP Setting Blood Gas CA Notified Whom Blood Gas 02/06/2019 8:18:00 Notified Time PM Test 02/07/19 04:54 02/07/19 05:44 02/07/19 07:52 02/07/19 08:45 White Blood 9.5 # Count Red Blood Count 4.41 Hemoglobin 13.0 Hematocrit 39.0 Mean Corpuscular 88.4 Volume Mean Corpuscular 29.5 Hemoglobin Mean Corpuscular 33.3 Hemoglobin Linda nt Red Cell 15.1 H Distribution Width Platelet Count 90 #L Mean Platelet 11.3 H Volume Immature 0.300 Granulocytes % Neutrophils % Segmented 55 Neutrophils % (Manual) Band Neutrophils 23 H % (Manual) Lymphocytes % Lymphocytes % 14 L (Manual) Monocytes % Monocytes % 3 (Manual) Eosinophils % Eosinophils % 5 (Manual) Basophils % Nucleated Red 0.2 H Blood Cells % Immature 0.030 Granulocytes # Neutrophils # Neutrophils # 5.4 (Manual) Band Neutrophils 2.1 H # Lymphocytes 1.3 (Manual) Lymphocytes # Monocytes # Monocytes # 0.2 L (Manual) Eosinophils # Basophils # Nucleated Red Blood Cells # Platelet DECREASED Estimate Polychromasia 1+ Anisocytosis 1+ Microcytosis 1+ Sodium Level 144 Potassium Level 3.5 Chloride Level 116 H Carbon Dioxide 19 L Level Anion Gap 9 Blood Urea 12 Nitrogen Creatinine 1.00 Est Glomerular > 60 Filtrat Rate mL/min Glucose Level 151 Calcium Level 8.2 L Phosphorus Level 3.3 Magnesium Level 2.1 Bedside Glucose 82 131 Blood Gas Blood arterial Specimen Source Arterial Blood 02/07/2019 8:20:08 Date Drawn AM Arterial Blood 7.356 pH (Temp corrected) Arterial Blood 31.5 L pCO2 (Temp correct) Arterial Blood 74.5 L pO2 (Temp corrected) Arterial Blood 17.2 L HCO3 Arterial Blood -7.1 L Base Excess Arterial Blood 95.3 Oxygen Saturatio n Cristino Test ACCEPTAB Arterial Blood Right Radial Gas Puncture Site Arterial 0.5 Blood Carboxyhem oglobin Arterial Blood 0.2 Methemoglobin Blood Gas A-a O2 390.7 H Differential Oxyhemoglobin 94.6 Percent Blood Gas 37.0 Temperature Blood Gas 26.0 Respiration Rate Blood Gas Actual 26 Respiration Rate Blood Gas VENT - AC Modality FiO2 70.0 Blood Gas Tidal 550.0 Volume Blood Gas Low 12.0 PEEP Setting Blood Gas TM Notified Whom Blood Gas 02/07/2019 8:29:45 Notified Time AM Test 02/07/19 12:29 Bedside Glucose 127 Medications Medication Current Medications Norepinephrine 250 ml @ 1.875 mls/ hr TITRATE IV Last administered on 02/07/19at 09:05; Admin Dose 75 MLS/HR; Start 02/04/19 at 12:00 Miscellaneous Information 1 ea NOTE XX ; Start 02/04/19 at 15:00 Glucose (Glutose) 15 gm Q15M PRN PO DECREASED GLUCOSE; Start 02/04/19 at 15:00 Glucose (Glutose) 22.5 gm Q15M PRN PO DECREASED GLUCOSE; Start 02/04/19 at 15:00 Dextrose (D50w Syringe) 25 ml Q15M PRN IV DECREASED GLUCOSE; Start 02/04/19 at 15:00 Dextrose (D50w Syringe) 50 ml Q15M PRN IV DECREASED GLUCOSE; Start 02/04/19 at 15:00 Glucagon (Glucagen) 1 mg Q15M PRN IM DECREASED GLUCOSE; Start 02/04/19 at 15:00 Glucose (Glutose) 15 gm Q15M PRN BUCCAL DECREASED GLUCOSE; Start 02/04/19 at 15:00 Acetaminophen (Tylenol Supp) 650 mg Q4H PRN [place] TEMP > 37C; Start 02/04/19 at 17:30 Acetaminophen (Tylenol Supp) 500 mg Q6H [place] ; Start 02/05/19 at 17:30 Meperidine HCl (Demerol) 12.5 mg Q4H PRN IV POST OPERATIVE SHIVERING; Start 02/04/19 at 17:30 Meperidine HCl (Demerol) 25 mg Q4H PRN IV POST OPERATIVE SHIVERING; Start 02/04/19 at 17:30 Eye Lubricant (Akwa Oint) 1 applic Q6 BOTH EYES Last administered on 02/07/19 11:50; Admin Dose 1 APPLIC; Start 02/04/19 at 18:00 Eye Lubricant (Artificial Tears Oph) 2 drop Q6 BOTH EYES Last administered on 02/07/19 11:44; Admin Dose 2 DROP; Start 02/04/19 at 18:00 Midazolam HCl 50 ml @ 1 mls/hr TITRATE IV Last administered on 02/05/19 10:16; Admin Dose 4 MLS/HR; Start 02/04/19 at 22:30 Diagnostic Test (Pha) (Accu-Chek) 1 ea Q4 XX Last administered on 02/06/19 17:47; Admin Dose 1 EA; Start 02/05/19 at 00:00 Phenylephrine HCl 40 mg/Dextrose 250 ml @ 37.5 mls/hr TITRATE IV Last administered on 02/07/19 09:48; Admin Dose 15 MLS/HR; Start 02/05/19 at 00:30 Levetiracetam 100 ml @ 400 mls/hr Q12 IVPB Last administered on 02/07/19 09:00; Admin Dose 400 MLS/HR; Start 02/05/19 at 09:00 Piperacillin Sod/ Tazobactam Sod 100 ml @ 200 mls/hr Q8 IVPB Last administered on 02/07/19 13:12; Admin Dose 200 MLS/HR; Start 02/05/19 at 09:30 Desmopressin Acetate (Ddavp) 2 mcg BID IV Last administered on 02/07/19 08:58; Admin Dose 2 MCG; Start 02/05/19 at 14:30 Nimodipine (Nimotop) 60 mg Q4 NGT Last administered on 02/07/19 12:57; Admin Dose 60 MG; Start 02/05/19 at 21:00 Dextrose 1,000 ml @ 40 mls/hr Q24H IV Last administered on 02/07/19 11:22; Admin Dose 40 MLS/HR; Start 02/05/19 at 21:30 Acetaminophen (Tylenol Liquid) 650 mg Q4H PRN NGT TEMP > 37C; Start 02/07/19 at 09:30 Acetaminophen (Tylenol Liquid) 500 mg Q6 NGT ; Start 02/07/19 at 12:00 GUERO WILLOUGHBY February 07, 2019 13:52
--- NOTE | 2019-02-07 14:35 | CONS ---
Assessment/Plan Assessment/Plan Hospital Course 33 yo F with reported Hx of HTN who is admitted to the [facility] ICU following reported PEA arrest. CT head revealed extensive basal cistern SAH Now s/p targeted temperature management... She was noted to have pre-admission spells concerning for seizure... for which neurology is consulted. ...consistent with provoked seizures in the context of acute ICH. 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 EEG is without evidence of subclinical seizures. On neurologic examination on 02/07, she is without brainstem or cortical signs..concerning for brain . Repeat EEG confirms cortical inactivity. P: Consider apnea testing for confirmation of brainstem inactivity. Consultation Date/Type/Reason Admit Date/Time Feb 04, 2019 at 13:52 Type of Consult Neurology Reason for Consultation seizure management Requesting Provider: GUERO WILLOUGHBY Date/Time of Note DATE: 02/07/19 TIME: 14:34 24 HR Interval Summary Free Text/Dictation Continues critical care. No acute events or changes in pt condition reported. Subjective hx not possible: pt critical status Exam Vital Signs Vitals Vital Signs Date Temp Pulse Resp B/P (MAP) Pulse Ox O2 O2 Flow FiO2 Time Delivery Rate 02/07/19 98.5 87 26 119/68 94 Mechanical 12:00 (85) Ventilator 02/07/19 70 11:00 Intake and Output 02/06/19 02/06/19 02/07/19 1515:00 23:00 07:00 IntakeIntake Total 2330.805 ml 1921.25 ml 1686.25 ml OutputOutput Total 850 ml 520 ml 680 ml BalanceBalance 1480.805 ml 1401.25 ml 1006.25 ml Exam PE: Gen Appearance: No Apparent Distress HEENT: Intubated Cardiovascular: Regular rate Abdomen: Soft Extremities: Dry NE: The patient was comatose. Cranial nerve examination was limited by mental status. Pupils were 6mm, fixed and dilated. There was no afferent pupillary defect. Funduscopic examination was limited. Face was grossly symmetric, w/ absent corneal and cough reflexes. There was no lateral eye movement during cold calorics. Tone was normal. Muscle bulk was normal. I did not see fasciculations. The patient did not withdraw to noxious stimulation. Coordination and gait testing was limited by mental status. Arm and leg reflexes were symmetric. Hidalgo's sign was absent. Plantar re sponses were mute. CHRISTIN CASTELLANOS NP February 07, 2019 14:35 ANGELA BECK February 08, 2019 06:39
[2019-02-07] MEDS ORDERED: hydrALAzine 20 MG INJ IV PRN (18:30)
[2019-02-07] MEDS ORDERED: METOPROLOL 25 MG TAB PO SCH (21:00)
[2019-02-08] VITALS (96 sets, daily range): BP systolic 74–115; BP diastolic 40–95; PULSE 80–110; RESP 17–26
[2019-02-08] MEDS: ARTIFICIAL TEARS 15 ML OPH BOTH EYES SCH ×4 (00:50→17:13)
[2019-02-08] MEDS: ACETAMINOPHEN 650MG/20.3ML CUP NGT SCH ×4 (00:50→17:13)
[2019-02-08] MEDS: OCULAR LUBRICANT 3.5 GM OPH OINT BOTH EYES SCH ×4 (00:51→17:13)
[2019-02-08] MEDS: ACCU-CHEK XX SCH ×6 (00:51→21:29)
[2019-02-08] MEDS: NORepinephrine 8MG/250 ML (PMX 250 ML IV SCH ×4 (02:28→20:01)
[2019-02-08] MEDS: ACETAMINOPHEN 650 MG SUPP PR SCH ×4 (05:30→23:30)
[2019-02-08] MEDS: PIPER-TAZO 3.375 GM IV (PMX) 100 ML IVPB SCH ×3 (05:31→22:15)
[2019-02-08] MEDS: PHENYLephrine 40 MG in DEXTROSE 5% 246 ML IV SCH (05:44)
--- NOTE | 2019-02-08 06:56 | EEG ---
EEG NOTE Report Details DATE OF TEST: 02/07/19 HISTORY: The patient is a 33-year-old F who presents in coma following cardiac arrest. This EEG is requested to confirm cortical brain . SEDATION: None. CONDITIONS OF RECORDING: This EEG was recorded digitally on the [employer] machine, using the International 10-20 System of electrodes plus anterior temporals and [place]. STATES SAMPLED: Comatose. FINDINGS: There is electrocerebral inactivity throughout. IMPRESSION: Abnormal electroencephalogram due to: electrocerebral inactivity. COMMENT: Electrocerebral inactivity at high sensitivity (2uV) is consistent with the clinical diagnosis of brain . ANGELA BECK February 08, 2019 06:56
--- NOTE | 2019-02-08 07:52 | CONS ---
Assessment/Plan Assessment/Plan Assessment/Plan (Daily) Ventilator setting; AC of 26, tidal volume 550, PEEP of 12, 100% FiO2. Patient is currently on phenylephrine drip 20 mics per minute, Levophed 22 mics per minute. Assessment and recommendations; 1. Patient admitted with subarachnoid hemorrhage with seizures with severe anoxic encephalopathy. Status post hypothermia protocol. 2. Bilateral pneumonia with severe hypoxemia. 3. Mild metabolic acidosis. 4. Anemia and severe thrombocytopenia. 5. Interval correction of hypernatremia. 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 6. Persistent shock. Continue current supportive care. Obtain follow-up chest x-ray. Start sodium bicarbonate drip. Prognosis appears extremely poor. 35 minutes of critical care time was spent evaluating the patient. Consultation Date/Type/Reason Admit Date/Time Feb 04, 2019 at 13:52 Initial Consult Date 02/05/19 Type of Consult Pulmonary/critical care Patient is a 33-year-old lady who was brought into the hospital after sustaining a cardiac arrest event. Further work-up revealed extensive subarachnoid hemorrhage as well as intraventricular hemorrhage. Patient currently is orally intubated and is on hypothermia protocol. Patient also exhibited new seizure activity and is currently on Keppra without any further episodes noted. Past medical history; 1. History of hypertension. Medications; reviewed. Allergies; none. Social history, family history, occupational history is not available. Review of systems; unable to be obtained. General exam; young woman, orally intubated, on hypothermia protocol. Sedated. Requesting Provider: GUERO WILLOUGHBY Date/Time of Note DATE: 02/08/19 TIME: 07:49 24 HR Interval Summary Free Text/Dictation Patient's condition remains critical. Remains completely unresponsive. Patient however has remained hemodynamically unstable as well. Requiring high-dose pressor support. General exam; young woman, unresponsive, orally intubated ,currently no distress. Exam/Review of Systems Exam Vitals Vital Signs Date Temp Pulse Resp B/P (MAP) Pulse Ox O2 O2 Flow FiO2 Time Delivery Rate 02/08/19 85 26 100/52 96 Mechanica 07:30 (68) l Ventilato r 02/08/19 100.0 07:15 02/08/19 100 05:48 Intake and Output 02/07/19 02/07/19 02/08/19 1515:00 23:00 07:00 IntakeIntake Total 1327.55 ml 1071.25 ml 936.25 ml OutputOutput Total 950 ml 565 ml 315 ml BalanceBalance 377.55 ml 506.25 ml 621.25 ml Exam H EENT exam; supple neck, no JVD. No lymphadenopathy. Midline trachea. No thyromegaly. Orally intubated. Patient has fair dentition. Pupils are dilated and nonreactive to light. Chest exam; diminished but clear breath sounds. S1-S2 audible, no murmurs. Regular rhythm. Abdomen exam; soft, nondistended. No organomegaly. Bowel sounds are sluggish. Extremity exam; no peripheral edema clubbing. [employer] SK[employer]S COORDINATOR exam; patient remains profoundly unresponsive. Results Result Diagram: 02/08/19 0445 02/08/19 0445 Results 24hrs Laboratory Tests Test 02/07/19 07:52 02/07/19 08:45 02/07/19 12:29 02/07/19 16:50 Blood Gas Specimen Blood arterial Source Arterial Blood 02/07/2019 8:20:08 Date Drawn AM Arterial Blood pH 7.356 (Temp corrected) Arterial Blood 31.5 L pCO2 (Temp correct) Arterial Blood pO2 74.5 L (Temp corrected) Arterial Blood 17.2 L HCO3 Arterial Blood -7.1 L Base Excess Arterial Blood 95.3 Oxygen Saturation Cristino Test ACCEPTAB Arterial Blood Gas Right Radial Puncture Site Arterial 0.5 Blood Carboxyhemog lobin Arterial Blood 0.2 Methemoglobin Blood Gas A-a O2 390.7 H Differential Oxyhemoglobin 94.6 Percent Blood Gas 37.0 Temperature Blood Gas 26.0 Respiration Rate Blood Gas Actual 26 Respiration Rate Blood Gas Modality VENT - AC FiO2 70.0 Blood Gas Tidal 550.0 Volume Blood Gas Low PEEP 12.0 Setting Blood Gas Notified TM Whom Blood Gas Notified 02/07/2019 8:29:45 Time AM Bedside Glucose 131 127 119 Test 02/07/19 21:07 02/08/19 01:32 02/08/19 04:45 02/08/19 05:34 Bedside Glucose 113 229 H 129 White Blood Count 7.8 Red Blood Count 4.33 Hemoglobin 12.6 Hematocrit 38.7 Mean Corpuscular 89.4 Volume Mean Corpuscular 29.1 Hemoglobin Mean Corpuscular 32.6 Hemoglobin Concent Red Cell 15.1 H Distribution Width Platelet Count 63 #L Mean Platelet 10.8 H Volume Immature 0.500 H Granulocytes % Neutrophils % Segmented 66 Neutrophils % (Manual) Band Neutrophils % 14 H (Manual) Lymphocytes % Lymphocytes % 12 L (Manual) Reactive 2 H Lymphocytes % (Manual) Monocytes % Monocytes % 1 (Manual) Eosinophils % Eosinophils % 4 (Manual) Basophils % Basophils % 1 (Manual) Nucleated Red 1 H Blood Cells % Immature 0.040 H Granulocytes # Neutrophils # Neutrophils # 5.2 (Manual) Band Neutrophils # 1.0 H Lymphocytes 0.9 (Manual) Lymphocytes # Reactive 0.1 H Lymphocytes # Monocytes # Monocytes # 0.0 L (Manual) Eosinophils # Basophils # Basophils # 0.0 (Manual) Nucleated Red Blood Cells # Platelet Estimate DECREASED Giant Platelets 3 H Polychromasia 1+ Spherocytes 1+ Sodium Level 140 Potassium Level 3.6 Chloride Level 113 H Carbon Dioxide 21 Level Anion Gap 6 Blood Urea 10 Nitrogen Creatinine 1.11 H Est Glomerular 56 L Filtrat Rate mL/min Glucose Level 140 Calcium Level 7.5 L Phosphorus Level 4.5 Magnesium Level 1.8 Test 02/08/19 06:02 Blood Gas Specimen Blood arterial Source Arterial Blood 02/08/2019 6:20:39 Date Drawn AM Arterial Blood pH 7.256 *L (Temp corrected) Arterial Blood 38.0 pCO2 (Temp correct) Arterial Blood pO2 74.0 L (Temp corrected) Arterial Blood 16.5 L HCO3 Arterial Blood -9.9 L Base Excess Arterial Blood 94.6 L Oxygen Saturation Cristino Test ACCEPTAB Arterial Blood Gas Right Radial Puncture Site Arterial 0.5 Blood Carboxyhemog lobin Arterial Blood 0.3 Methemoglobin Blood Gas A-a O2 601.0 H Differential Oxyhemoglobin 93.8 Percent Blood Gas 37.0 Temperature Blood Gas 26.0 Respiration Rate Blood Gas Actual 26 Respiration Rate Blood Gas Modality VENT - AC FiO2 100.0 Blood Gas Tidal 550.0 Volume Blood Gas Low PEEP 12.0 Setting Blood Gas Critical Ilan VALDES MD Value Read Back Blood Gas Notified [place] Whom Blood Gas Notified 02/08/2019 6:38:27 Time AM Medications Medication Current Medications Norepinephrine 250 ml @ 1.875 mls/ hr TITRATE IV Last administered on 02/08/19at 02:28; Admin Dose 41.25 MLS/HR; Start 02/04/19 at 12:00 Miscellaneous Information 1 ea NOTE XX ; Start 02/04/19 at 15:00 Glucose (Glutose) 15 gm Q15M PRN PO DECREASED GLUCOSE; Start 02/04/19 at 15:00 Glucose (Glutose) 22.5 gm Q15M PRN PO DECREASED GLUCOSE; Start 02/04/19 at 15:00 Dextrose (D50w Syringe) 25 ml Q15M PRN IV DECREASED GLUCOSE; Start 02/04/19 at 15:00 Dextrose (D50w Syringe) 50 ml Q15M PRN IV DECREASED GLUCOSE Last administered on 02/08/19at 01:09; Admin Dose 50 ML; Start 02/04/19 at 15:00 Glucagon (Glucagen) 1 mg Q15M PRN IM DECREASED GLUCOSE; Start 02/04/19 at 15:00 Glucose (Glutose) 15 gm Q15M PRN BUCCAL DECREASED GLUCOSE; Start 02/04/19 at 15:00 Acetaminophen (Tylenol Supp) 650 mg Q4H PRN [place] TEMP > 37C; Start 02/04/19 at 17:30 Acetaminophen (Tylenol Supp) 500 mg Q6H [place] ; Start 02/05/19 at 17:30 Meperidine HCl (Demerol) 12.5 mg Q4H PRN IV POST OPERATIVE SHIVERING; Start 02/04/19 at 17:30 Meperidine HCl (Demerol) 25 mg Q4H PRN IV POST OPERATIVE SHIVERING; Start 02/04/19 at 17:30 Eye Lubricant (Akwa Oint) 1 applic Q6 BOTH EYES Last administered on 02/08/19at 05:32; Admin Dose 1 APPLIC; Start 02/04/19 at 18:00 Eye Lubricant (Artificial Tears Oph) 2 drop Q6 BOTH EYES Last administered on 02/08/19at 05:32; Admin Dose 2 DROP; Start 02/04/19 at 18:00 Midazolam HCl 50 ml @ 1 mls/hr TITRATE IV Last administered on 02/05/19at 10:16; Admin Dose 4 MLS/HR; Start 02/04/19 at 22:30 Diagnostic Test (Pha) (Accu-Chek) 1 ea Q4 XX Last administered on 02/07/19at 16:50; Admin Dose 1 EA; Start 02/05/19 at 00:00 Phenylephrine HCl 40 mg/Dextrose 250 ml @ 37.5 mls/hr TITRATE IV Last administered on 02/08/19 05:44; Admin Dose 7.5 MLS/HR; Start 02/05/19 at 00:30 Levetiracetam 100 ml @ 400 mls/hr Q12 IVPB Last administered on 02/07/19 20 :25; Admin Dose 400 MLS/HR; Start 02/05/19 at 09:00 Piperacillin Sod/ Tazobactam Sod 100 ml @ 200 mls/hr Q8 IVPB Last administered on 02/08/19 05:31; Admin Dose 200 MLS/HR; Start 02/05/19 at 09:30 Desmopressin Acetate (Ddavp) 2 mcg BID IV Last administered on 02/07/19 20:25; Admin Dose 2 MCG; Start 02/05/19 at 14:30 Nimodipine (Nimotop) 60 mg Q4 NGT Last administered on 02/08/19 05:31; Admin D ose 60 MG; Start 02/05/19 at 21:00 Acetaminophen (Tylenol Liquid) 650 mg Q4H PRN NGT TEMP > 37C; Start 02/07/19 at 09:30 Acetaminophen (Tylenol Liquid) 500 mg Q6 NGT Last administered on 02/08/19 05: 31; Admin Dose 500 MG; Start 02/07/19 at 12:00 Sodium Chloride 1,000 ml @ 50 mls/hr Q20H IV Last administered on 02/08/19 07:24; Admin Dose 50 MLS/HR; Start 02/08/19 at 08:00 CALEB APARICIO February 08, 2019 07:52
[2019-02-08] MEDS ORDERED: SOD CHLORIDE 0.9% 1,000 ML IV SCH (08:00)
--- NOTE | 2019-02-08 08:21 | PN ---
DATE: 02/08/2019 SUBJECTIVE: The patient remains critically ill on pressor support. The patient is on full ventilato ry support. The patient has no neurological response. She is undergoing apnea test today. No other events noted. Urinary output has been adequate. OBJECTIVE: VITAL SIGNS: Blood pressure is 100/52, respirations 26, pulse 85, temperature 100. HEENT: Head is normocephalic. Pupils are dilated. NECK: Supple. HEART: Regular rate. LUNGS: Show diminished breath sounds at the base. ABDOMEN: Soft, nontender to palpation without rebound or guarding. EXTREMITIES: Negative for clubbing, cyanosis, no edema. DERMATOLOGIC: No rashes. MUSCULOSKELETAL: No joint effusion. NEUROLOGIC: No change in exam. MEDICATIONS: Reviewed. LABORATORY DATA: From 02/08/2019 was reviewed. IMAGING STUDIES: Chest x-ray was reviewed. Imaging studies reviewed. ASSESSMENT AND PLAN: 1. Essential diabetes insipidus. Etiology is secondary to acute intracranial hemorrhage. The patie nt is currently on DDAVP. Sodium levels have stabilized and improved. We will continue current roldan tment regimen on free water flushes 200 mL q.6h. We will discontinue hypertonic fluids, monitor seru m sodium levels closely. 3. Hypokalemia. Continue to monitor and replete. 4. Acute intracranial hemorrhage, subarachnoid hemorrhage. The patient is seen by neurosurgery. No plan for intervention. 5. Cardiac arrest. The patient is status post hypothermic protocol. Continue to monitor. Follow u p with Cardiology. 6. Ventilator-dependent respiratory failure. Vent settings and ABG was reviewed. Continue to monit or. 7. Acute encephalopathy with anoxic injury. The patient is being evaluated for brain . Contin ue to monitor. Follow up with neurology. 8. Shock, likely neurogenic possible septic. Continue current medical management. Continue pressor support and antibiotic therapy. Continue IV fluids. 9. Seizure disorder. Continue medical management. Antiepileptic medications. 10. Hypophosphatemia, hypomagnesemia. Continue to monitor and replete as needed. 11. Elevated troponin, likely non-ST elevation myocardial infarction type 2. Continue to monitor. 12. Nonoliguric acute kidney injury, etiology is secondary to hemodynamics. Renal function is fluct uating. We will continue to monitor. 13. Metabolic acidosis. The patient's ABG was reviewed. We will continue to monitor. No need for bicarbonate therapy at this time. Dictated By: TERE MELGAR/SARAH Conf#: [id number] DID#: [id number] CC: GUERO WILLOUGHBY MD; TARUN REESE MD;*End*
[2019-02-08] MEDS: LEVETIRACETAM 500 MG (PMX) 100 ML IVPB SCH ×2 (08:29→21:30)
[2019-02-08] MEDS: SODIUM BICARBONATE (IV ADD) 100 MEQ in SOD CHLORIDE 0.45% 900 ML IV SCH ×2 (08:29→22:20)
--- NOTE | 2019-02-08 09:15 | CONS ---
Assessment/Plan Assessment/Plan Assessment/Plan (Daily) Patient's second EEG confirms anoxic injury with clinical diagnosis of brain . We have had an extensive conversation with family members, Dr. Willoughby prepared family members were worse case scenario. This morning I have given family members and update that based upon her clinical findings we have cannot keep patient on life support for prolonged period of time. Anticipate terminal extubation today. Consultation Date/Type/Reason Admit Date/Time Feb 04, 2019 at 13:52 Initial Consult Date 02/05/19 Requesting Provider: GUERO WILLOUGHBY Date/Time of Note DATE: 02/08/19 TIME: 09:12 Exam/Review of Systems Exam Vitals Vital Signs Date Temp Pulse Resp B/P (MAP) Pulse Ox O2 O2 Flow FiO2 Time Delivery Rate 02/08/19 84 26 105/56 96 Mechanica 08:30 (72) l Ventilato r 02/08/19 100.0 07:15 02/08/19 100 05:48 Intake and Output 02/07/19 02/07/19 02/08/19 1515:00 23:00 07:00 IntakeIntake Total 1327.55 ml 1071.25 ml 936.25 ml OutputOutput Total 950 ml 565 ml 315 ml BalanceBalance 377.55 ml 506.25 ml 621.25 ml Results Result Diagram: 02/08/19 0445 02/08/19 0445 Results 24hrs Laboratory Tests Test 02/07/19 12:29 02/07/19 16:50 02/07/19 21:07 02/08/19 01:32 Bedside Glucose 127 119 113 229 H Test 02/08/19 04:45 02/08/19 05:34 02/08/19 06:02 02/08/19 08:35 White Blood Count 7.8 Red Blood Count 4.33 Hemoglobin 12.6 Hematocrit 38.7 Mean Corpuscular 89.4 Volume Mean Corpuscular 29.1 Hemoglobin Mean Corpuscular 32.6 Hemoglobin Concent Red Cell 15.1 H Distribution Width Platelet Count 63 #L Mean Platelet 10.8 H Volume Immature 0.500 H Granulocytes % Neutrophils % Segmented 66 Neutrophils % (Manual) Band Neutrophils % 14 H (Manual) Lymphocytes % Lymphocytes % 12 L (Manual) Reactive 2 H Lymphocytes % (Manual) Monocytes % Monocytes % 1 (Manual) Eosinophils % Eosinophils % 4 (Manual) Basophils % Basophils % 1 (Manual) Nucleated Red 1 H Blood Cells % Immature 0.040 H Granulocytes # Neutrophils # Neutrophils # 5.2 (Manual) Band Neutrophils # 1.0 H Lymphocytes 0.9 (Manual) Lymphocytes # Reactive 0.1 H Lymphocytes # Monocytes # Monocytes # 0.0 L (Manual) Eosinophils # Basophils # Basophils # 0.0 (Manual) Nucleated Red Blood Cells # Platelet Estimate DECREASED Giant Platelets 3 H Polychromasia 1+ Spherocytes 1+ Sodium Level 140 Potassium Level 3.6 Chloride Level 113 H Carbon Dioxide 21 Level Anion Gap 6 Blood Urea 10 Nitrogen Creatinine 1.11 H Est Glomerular 56 L Filtrat Rate mL/min Glucose Level 140 Calcium Level 7.5 L Phosphorus Level 4.5 Magnesium Level 1.8 Bedside Glucose 129 128 Blood Gas Specimen Blood arterial Source Arterial Blood 02/08/2019 6:20:39 Date Drawn AM Arterial Blood pH 7.256 *L (Temp corrected) Arterial Blood 38.0 pCO2 (Temp correct) Arterial Blood pO2 74.0 L (Temp corrected) Arterial Blood 16.5 L HCO3 Arterial Blood -9.9 L Base Excess Arterial Blood 94.6 L Oxygen Saturation Cristino Test ACCEPTAB Arterial Blood Gas Right Radial Puncture Site Arterial 0.5 Blood Carboxyhemog lobin Arterial Blood 0.3 Methemoglobin Blood Gas A-a O2 601.0 H Differential Oxyhemoglobin 93.8 Percent Blood Gas 37.0 Temperature Blood Gas 26.0 Respiration Rate Blood Gas Actual 26 Respiration Rate Blood Gas Modality VENT - AC FiO2 100.0 Blood Gas Tidal 550.0 Volume Blood Gas Low PEEP 12.0 Setting Blood Gas Critical Ilan VALDES MD Value Read Back Blood Gas Notified MA Whom Blood Gas Notified 02/08/2019 6:38:27 Time AM Medications Medication Current Medications Norepinephrine 250 ml @ 1.875 mls/ hr TITRATE IV Last administered on 02/08/19at 08:33; Admin Dose 41.25 MLS/HR; Start 02/04/19 at 12:00 Miscellaneous Information 1 ea NOTE XX ; Start 02/04/19 at 15:00 Glucose (Glutose) 15 gm Q15M PRN PO DECREASED GLUCOSE; Start 02/04/19 at 15:00 Glucose (Glutose) 22.5 gm Q15M PRN PO DECREASED GLUCOSE; Start 02/04/19 at 15:00 Dextrose (D50w Syringe) 25 ml Q15M PRN IV DECREASED GLUCOSE; Start 02/04/19 at 15:00 Dextrose (D50w Syringe) 50 ml Q15M PRN IV DECREASED GLUCOSE Last administered on 02/08/19 01:09; Admin Dose 50 ML; Start 02/04/19 at 15:00 Glucagon (Glucagen) 1 mg Q15M PRN IM DECREASED GLUCOSE; Start 02/04/19 at 15:00 Glucose (Glutose) 15 gm Q15M PRN BUCCAL DECREASED GLUCOSE; Start 02/04/19 at 15:00 Acetaminophen (Tylenol Supp) 650 mg Q4H PRN [place] TEMP > 37C; Start 02/04/19 at 17:30 Acetaminophen (Tylenol Supp) 500 mg Q6H [place] ; Start 02/05/19 at 17:30 Meperidine HCl (Demerol) 12.5 mg Q4H PRN IV POST OPERATIVE SHIVERING; Start 02/04/19 at 17:30 Meperidine HCl (Demerol) 25 mg Q4H PRN IV POST OPERATIVE SHIVERING; Start 02/04/19 at 17:30 Eye Lubricant (Akwa Oint) 1 applic Q6 BOTH EYES Last administered on 02/08/19 05:32; Admin Dose 1 APPLIC; Start 02/04/19 at 18:00 Eye Lubricant (Artificial Tears Oph) 2 drop Q6 BOTH EYES Last administered on 02/08/19 05:32; Admin Dose 2 DROP; Start 02/04/19 at 18:00 Midazolam HCl 50 ml @ 1 mls/hr TITRATE IV Last administered on 02/05/19at 10:16; Admin Dose 4 MLS/HR; Start 02/04/19 at 22:30 Diagnostic Test (Pha) (Accu-Chek) 1 ea Q4 XX Last administered on 02/08/19 08:34; Admin Dose 1 EA; Start 02/05/19 at 00:00 Phenylephrine HCl 40 mg/Dextrose 250 ml @ 37.5 mls/hr TITRATE IV Last administered on 02/08/19 05:44; Admin Dose 7.5 MLS/HR; Start 02/05/19 at 00:30 Levetiracetam 100 ml @ 400 mls/hr Q12 IVPB Last administered on 02/08/19 08:29; Admin Dose 400 MLS/HR; Start 02/05/19 at 09:00 Piperacillin Sod/ Tazobactam Sod 100 ml @ 200 mls/hr Q8 IVPB Last administered on 02/08/19at 05:31; Admin Dose 200 MLS/HR; Start 02/05/19 at 09:30 Nimodipine (Nimotop) 60 mg Q4 NGT Last administered on 02/08/19 08:30; Admin Dose 60 MG; Start 02/05/19 at 21:00 Acetaminophen (Tylenol Liquid) 650 mg Q4H PRN NGT TEMP > 37C; Start 02/07/19 at 09:30 Acetaminophen (Tylenol Liquid) 500 mg Q6 NGT Last administered on 02/08/19at 05:31; Admin Dose 500 MG; Start 02/07/19 at 12:00 Sodium Chloride 1,000 ml @ 50 mls/hr Q20H IV Last administered on 02/08/19at 07:24; Admin Dose 50 MLS/HR; Start 02/08/19 at 08:00; Status Hold Sodium Bicarbonate 100 meq/Sodium Chloride 1,000 ml @ 75 mls/hr [id number] IV Last administered on 02/08/19 08:29; Admin Dose 75 MLS/HR; Start 02/08/19 at 09:00 JOSE VALDES February 08, 2019 09:14
--- NOTE | 2019-02-08 09:59 | PN ---
Date/Time of Note Date/Time of Note DATE: 02/08/19 TIME: 09:58 Assessment/Plan VTE Prophylaxis Risk score (from Ns)>0 risk: 7 SCD applied (from [facility]): Yes Pharmacological prophylaxis: NA/contraindicated Pharm contraindication: hemorrhagic infarct Lines/Catheters [facility] Saline Lock Urinary Cath still in place: Yes Reason Cath still needed: other (indicate) Assessment/Plan Hospital Course S: no changes, remains unresponsive off sedation and on pressor support Objective: GENERAL: Intubated and pressors HEENT: dilated pupils with no light reflex, Intubated, Vent settings noted , LUNGS: diffusely diminished HEART: S1, S2. No murmur, gallops or rubs. ABDOMEN: Soft, non distended, Normoactive bowel sounds. GENITOURINARY: Normal female external genitalia, Ruiz to bedside drainage EXTREMITIES: NO edema bilaterally, also some hand edema bilaterally NEUROLOGIC: The patient is currently sedated. assessment and plan: 33-year-old female with a prior history of headaches for the last 3 days in the occipital region per report who was brought in after being found unresponsive at home, also with seizure and frothing at the mouth currently managed as follows: 1. Acute encephalopathy likely secondary to #2 -EEG and physical exam consistent with brain 2. 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 No evidence of aneurysm. 3. Acute respiratory failure secondary to the above, now ventilator dependent -Today she has bilateral airspace opacification concerning for pulmonary edema versus pneumonitis. High suspicion for aspiration pneumonitis. 4. Status post cardiac arrest with ROSC -s/p TH and subsequent rewarming 5. Elevated troponins rule out NSTEMI likely secondary to cardiac compression s 6. Systemic inflammatory response syndrome with severe lactic acidosis secondary to the above: improving 7. Hyperglycemia likely 2/2 shock, a1c 4.9 8. Hypophosphatemia 9. Systemic shock likely related to cardiac arrest currently on pressor support 10. New-onset seizure activity x1, no further seizures 11. Chronic hypertension, currently in shock 12. Acute renal insufficiency likely secondary to hypoperfusion 13. Acute hypernatremia 2/2 DI now on DDAVP 14. Metabolic acidosis 15. Mild transaminitis Plan: Patient clinically and radiographically brain , Continue vent and pressor support for now Palliative care working with family to discuss withdrawal of care One legacy to be notified by nursing continue ICU care and micromanagement Further interventions per clinical course No significant quality of life estimated, family updated Care time >35mins Result Diagram: 02/08/19 0445 02/08/19 0445 Results 24hrs Laboratory Tests Test 02/07/19 12:29 02/07/19 16:50 02/07/19 21:07 02/08/19 01:32 Bedside Glucose 127 119 113 229 H Test 02/08/19 04:45 02/08/19 05:34 02/08/19 06:02 02/08/19 08:35 White Blood Count 7.8 Red Blood Count 4.33 Hemoglobin 12.6 Hematocrit 38.7 Mean Corpuscular 89.4 Volume Mean Corpuscular 29.1 Hemoglobin Mean Corpuscular 32.6 Hemoglobin Concent Red Cell 15.1 H Distribution Width Platelet Count 63 #L Mean Platelet 10.8 H Volume Immature 0.500 H Granulocytes % Neutrophils % Segmented 66 Neutrophils % (Manual) Band Neutrophils % 14 H (Manual) Lymphocytes % Lymphocytes % 12 L (Manual) Reactive 2 H Lymphocytes % (Manual) Monocytes % Monocytes % 1 (Manual) Eosinophils % Eosinophils % 4 (Manual) Basophils % Basophils % 1 (Manual) Nucleated Red 1 H Blood Cells % Immature 0.040 H Granulocytes # Neutrophils # Neutrophils # 5.2 (Manual) Band Neutrophils # 1.0 H Lymphocytes 0.9 (Manual) Lymphocytes # Reactive 0.1 H Lymphocytes # Monocytes # Monocytes # 0.0 L (Manual) Eosinophils # Basophils # Basophils # 0.0 (Manual) Nucleated Red Blood Cells # Platelet Estimate DECREASED Giant Platelets 3 H Polychromasia 1+ Spherocytes 1+ Sodium Level 140 Potassium Level 3.6 Chloride Level 113 H Carbon Dioxide 21 Level Anion Gap 6 Blood Urea 10 Nitrogen Creatinine 1.11 H Est Glomerular 56 L Filtrat Rate mL/min Glucose Level 140 Calcium Level 7.5 L Phosphorus Level 4.5 Magnesium Level 1.8 Bedside Glucose 129 128 Blood Gas Specimen Blood arterial Source Arterial Blood 02/08/2019 6:20:39 Date Drawn AM Arterial Blood pH 7.256 *L (Temp corrected) Arterial Blood 38.0 pCO2 (Temp correct) Arterial Blood pO2 74.0 L (Temp corrected) Arterial Blood 16.5 L HCO3 Arterial Blood -9.9 L Base Excess Arterial Blood 94.6 L Oxygen Saturation Cristino Test ACCEPTAB Arterial Blood Gas Right Radial Puncture Site Arterial 0.5 Blood Carboxyhemog lobin Arterial Blood 0.3 Methemoglobin Blood Gas A-a O2 601.0 H Differential Oxyhemoglobin 93.8 Percent Blood Gas 37.0 Temperature Blood Gas 26.0 Respiration Rate Blood Gas Actual 26 Respiration Rate Blood Gas Modality VENT - AC FiO2 100.0 Blood Gas Tidal 550.0 Volume Blood Gas Low PEEP 12.0 Setting Blood Gas Critical Ilan VALDES MD Value Read Back Blood Gas Notified [place] Whom Blood Gas Notified 02/08/2019 6:38:27 Time AM Exam/Review of Systems Exam Vitals Vital Signs Date Temp Pulse Resp B/P (MAP) Pulse Ox O2 O2 Flow FiO2 Time Delivery Rate 02/08/19 84 26 105/52 97 Mechanica 09:30 (69) l Ventilato r 02/08/19 100 08:00 02/08/19 100.0 07:15 Intake and Output 02/07/19 02/07/19 02/08/19 1515:00 23:00 07:00 IntakeIntake Total 1327.55 ml 1071.25 ml 985.00 ml OutputOutput Total 950 ml 565 ml 315 ml BalanceBalance 377.55 ml 506.25 ml 670.00 ml Results Results 24hrs Laboratory Tests Test 02/07/19 12:29 02/07/19 16:50 02/07/19 21:07 02/08/19 01:32 Bedside Glucose 127 119 113 229 H Test 02/08/19 04:45 02/08/19 05:34 02/08/19 06:02 02/08/19 08:35 White Blood Count 7.8 Red Blood Count 4.33 Hemoglobin 12.6 Hematocrit 38.7 Mean Corpuscular 89.4 Volume Mean Corpuscular 29.1 Hemoglobin Mean Corpuscular 32.6 Hemoglobin Concent Red Cell 15.1 H Distribution Width Platelet Count 63 #L Mean Platelet 10.8 H Volume Immature 0.500 H Granulocytes % Neutrophils % Segmented 66 Neutrophils % (Manual) Band Neutrophils % 14 H (Manual) Lymphocytes % Lymphocytes % 12 L (Manual) Reactive 2 H Lymphocytes % (Manual) Monocytes % Monocytes % 1 (Manual) Eosinophils % Eosinophils % 4 (Manual) Basophils % Basophils % 1 (Manual) Nucleated Red 1 H Blood Cells % Immature 0.040 H Granulocytes # Neutrophils # Neutrophils # 5.2 (Manual) Band Neutrophils # 1.0 H Lymphocytes 0.9 (Manual) Lymphocytes # Reactive 0.1 H Lymphocytes # Monocytes # Monocytes # 0.0 L (Manual) Eosinophils # Basophils # Basophils # 0.0 (Manual) Nucleated Red Blood Cells # Platelet Estimate DECREASED Giant Platelets 3 H Polychromasia 1+ Spherocytes 1+ Sodium Level 140 Potassium Level 3.6 Chloride Level 113 H Carbon Dioxide 21 Level Anion Gap 6 Blood Urea 10 Nitrogen Creatinine 1.11 H Est Glomerular 56 L Filtrat Rate mL/min Glucose Level 140 Calcium Level 7.5 L Phosphorus Level 4.5 Magnesium Level 1.8 Bedside Glucose 129 128 Blood Gas Specimen Blood arterial Source Arterial Blood 02/08/2019 6:20:39 Date Drawn AM Arterial Blood pH 7.256 *L (Temp corrected) Arterial Blood 38.0 pCO2 (Temp correct) Arterial Blood pO2 74.0 L (Temp corrected) Arterial Blood 16.5 L HCO3 Arterial Blood -9.9 L Base Excess Arterial Blood 94.6 L Oxygen Saturation Cristino Test ACCEPTAB Arterial Blood Gas Right Radial Puncture Site Arterial 0.5 Blood Carboxyhemog lobin Arterial Blood 0.3 Methemoglobin Blood Gas A-a O2 601.0 H Differential Oxyhemoglobin 93.8 Percent Blood Gas 37.0 Temperature Blood Gas 26.0 Respiration Rate Blood Gas Actual 26 Respiration Rate Blood Gas Modality VENT - AC FiO2 100.0 Blood Gas Tidal 550.0 Volume Blood Gas Low PEEP 12.0 Setting Blood Gas Critical Ilan VALDES MD Value Read Back Blood Gas Notified [place] Whom Blood Gas Notified 02/08/2019 6:38:27 Time AM Medications Medication Current Medications Norepinephrine 250 ml @ 1.875 mls/ hr TITRATE IV Last administered on 02/08/19at 08:33; Admin Dose 41.25 MLS/HR; Start 02/04/19 at 12:00 Miscellaneous Information 1 ea NOTE XX ; Start 02/04/19 at 15:00 Glucose (Glutose) 15 gm Q15M PRN PO DECREASED GLUCOSE; Start 02/04/19 at 15:00 Glucose (Glutose) 22.5 gm Q15M PRN PO DECREASED GLUCOSE; Start 02/04/19 at 15:00 Dextrose (D50w Syringe) 25 ml Q15M PRN IV DECREASED GLUCOSE; Start 02/04/19 at 15:00 Dextrose (D50w Syringe) 50 ml Q15M PRN IV DECREASED GLUCOSE Last administered on 02/08/19 01:09; Admin Dose 50 ML; Start 02/04/19 at 15:00 Glucagon (Glucagen) 1 mg Q15M PRN IM DECREASED GLUCOSE; Start 02/04/19 at 15:00 Glucose (Glutose) 15 gm Q15M PRN BUCCAL DECREASED GLUCOSE; Start 02/04/19 at 15:00 Acetaminophen (Tylenol Supp) 650 mg Q4H PRN [place] TEMP > 37C; Start 02/04/19 at 17:30 Acetaminophen (Tylenol Supp) 500 mg Q6H [place] ; Start 02/05/19 at 17:30 Meperidine HCl (Demerol) 12.5 mg Q4H PRN IV POST OPERATIVE SHIVERING; Start 02/04/19 at 17:30 Meperidine HCl (Demerol) 25 mg Q4H PRN IV POST OPERATIVE SHIVERING; Start 02/04/19 at 17:30 Eye Lubricant (Akwa Oint) 1 applic Q6 BOTH EYES Last administered on 02/08/19 05:32; Admin Dose 1 APPLIC; Start 02/04/19 at 18:00 Eye Lubricant (Artificial Tears Oph) 2 drop Q6 BOTH EYES Last administered on 02/08/19 05:32; Admin Dose 2 DROP; Start 02/04/19 at 18:00 Midazolam HCl 50 ml @ 1 mls/hr TITRATE IV Last administered on 02/05/19at 10:16; Admin Dose 4 MLS/HR; Start 02/04/19 at 22:30 Diagnostic Test (Pha) (Accu-Chek) 1 ea Q4 XX Last administered on 02/08/19 08:34; Admin Dose 1 EA; Start 02/05/19 at 00:00 Phenylephrine HCl 40 mg/Dextrose 250 ml @ 37.5 mls/hr TITRATE IV Last administered on 02/08/19 05:44; Admin Dose 7.5 MLS/HR; Start 02/05/19 at 00:30 Levetiracetam 100 ml @ 400 mls/hr Q12 IVPB Last administered on 02/08/19 08:29; Admin Dose 400 MLS/HR; Start 02/05/19 at 09:00 Piperacillin Sod/ Tazobactam Sod 100 ml @ 200 mls/hr Q8 IVPB Last administered on 02/08/19 05:31; Admin Dose 200 MLS/HR; Start 02/05/19 at 09:30 Nimodipine (Nimotop) 60 mg Q4 NGT Last administered on 02/08/19 08:30; Admin Dose 60 MG; Start 02/05/19 at 21:00 Acetaminophen (Tylenol Liquid) 650 mg Q4H PRN NGT TEMP > 37C; Start 02/07/19 at 09:30 Acetaminophen (Tylenol Liquid) 500 mg Q6 NGT Last administered on 02/08/19 05:31; Admin Dose 500 MG; Start 02/07/19 at 12:00 Sodium Chloride 1,000 ml @ 50 mls/hr Q20H IV Last administered on 02/08/19at 07:24; Admin Dose 50 MLS/HR; Start 02/08/19 at 08:00; Status Hold Sodium Bicarbonate 100 meq/Sodium Chloride 1,000 ml @ 75 mls/hr [id number] IV Last administered on 02/08/19 08:29; Admin Dose 75 MLS/HR; Start 02/08/19 at 09 :00 GUERO WILLOUGHBY February 08, 2019 09:59
--- NOTE | 2019-02-08 11:56 | CONS ---
Assessment/Plan Assessment/Plan Hospital Course 33 yo F with reported Hx of HTN who is admitted to the [facility] ICU following reported PEA arrest. CT head revealed extensive basal cistern SAH Now s/p targeted temperature management... She was noted to have pre-admission spells concerning for seizure... for which neurology is consulted. ...consistent with provoked seizures in the context of acute ICH. 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 EEG is without evidence of subclinical seizures. On neurologic examination on 02/07, she is without brainstem or cortical signs..concerning for brain . Repeat EEG confirms cortical inactivity. P: Consider apnea testing for confirmation of brainstem inactivity. Consultation Date/Type/Reason Admit Date/Time Feb 04, 2019 at 13:52 Type of Consult Neurology Reason for Consultation seizure management Requesting Provider: GUERO WILLOUGHBY Date/Time of Note DATE: 02/08/19 TIME: 11:56 24 HR Interval Summary Free Text/Dictation Continues critical care. S/p EEG. Subjective hx not possible: pt critical status Exam Vital Signs Vitals Vital Signs Date Temp Pulse Resp B/P (MAP) Pulse Ox O2 O2 Flow FiO2 Time Delivery Rate 02/08/19 92 26 95/49 (64) 97 Mechanica 11:45 l Ventilato r 02/08/19 100 08:00 02/08/19 100.0 07:15 Intake and Output 02/07/19 02/07/19 02/08/19 1515:00 23:00 07:00 IntakeIntake Total 1327.55 ml 1071.25 ml 985.00 ml OutputOutput Total 950 ml 565 ml 315 ml BalanceBalance 377.55 ml 506.25 ml 670.00 ml Exam PE: Gen Appearance: No Apparent Distress HEENT: Intubated Cardiovascular: Regular rate Abdomen: Soft Extremities: Dry NE: The patient was comatose. Cranial nerve examination was limited by mental status. Pupils were 6mm, fixed and dilated. There was no afferent pupillary defect. Funduscopic examination was limited. Face was grossly symmetric, w/ absent corneal and cough reflexes. There was no lateral eye movement during cold calorics. Tone was normal. Muscle bulk was normal. I did not see fasciculations. The patient did not withdraw to noxious stimulation. Coordination and gait testing was limited by mental status. Arm and leg reflexes were symmetric. Hidalgo's sign was absent. Plantar responses were mute. CHRISTIN CASTELLANOS NP February 08, 2019 11:56
--- NOTE | 2019-02-08 12:13 | CONS ---
Assessment/Plan Assessment/Plan Assessment/Plan (Daily) Dictating an addendum to prior prior note of 02/08/2019. Patient is not overbreathing the ventilator, she is up to 100% FiO2 and pressors for blood pressure support. Results of EEG done 02/07/2019 and read on 02/08/2019 shows cerebral brain . Examination No response to verbal or tactile stimulation Cannot participate in cranial nerve examination Not overbreathing the ventilator Pupils fixed dilated No oculocephalics No gag reflex Assessment and plan Noninvasive and physical examination consistent with cerebral brain Consultation Date/Type/Reason Admit Date/Time Feb 04, 2019 at 13:52 Initial Consult Date 02/05/19 Requesting Provider: GUERO WILLOUGHBY Date/Time of Note DATE: 02/08/19 TIME: 12:10 Exam/Review of Systems Exam Vitals Vital Signs Date Temp Pulse Resp B/P (MAP) Pulse Ox O2 O2 Flow FiO2 Time Delivery Rate 02/08/19 92 26 95/49 (64) 97 [place] 11:45 l Ventilato r 02/08/19 100 08:00 02/08/19 100.0 07:15 Intake and Output 02/07/19 02/07/19 02/08/19 1515:00 23:00 07:00 IntakeIntake Total 1327.55 ml 1071.25 ml 985.00 ml OutputOutput Total 950 ml 565 ml 315 ml BalanceBalance 377.55 ml 506.25 ml 670.00 ml Results Result Diagram: 02/08/19 0445 02/08/19 0445 Results 24hrs Laboratory Tests Test 02/07/19 12:29 02/07/19 16:50 02/07/19 21:07 02/08/19 01:32 Bedside Glucose 127 119 113 229 H Test 02/08/19 04:45 02/08/19 05:34 02/08/19 06:02 02/08/19 08:35 White Blood Count 7.8 Red Blood Count 4.33 Hemoglobin 12.6 Hematocrit 38.7 Mean Corpuscular 89.4 Volume Mean Corpuscular 29.1 Hemoglobin Mean Corpuscular 32.6 Hemoglobin Concent Red Cell 15.1 H Distribution Width Platelet Count 63 #L Mean Platelet 10.8 H Volume Immature 0.500 H Granulocytes % Neutrophils % Segmented 66 Neutrophils % (Manual) Band Neutrophils % 14 H (Manual) Lymphocytes % Lymphocytes % 12 L (Manual) Reactive 2 H Lymphocytes % (Manual) Monocytes % Monocytes % 1 (Manual) Eosinophils % Eosinophils % 4 (Manual) Basophils % Basophils % 1 (Manual) Nucleated Red 1 H Blood Cells % Immature 0.040 H Granulocytes # Neutrophils # Neutrophils # 5.2 (Manual) Band Neutrophils # 1.0 H Lymphocytes 0.9 (Manual) Lymphocytes # Reactive 0.1 H Lymphocytes # Monocytes # Monocytes # 0.0 L (Manual) Eosinophils # Basophils # Basophils # 0.0 (Manual) Nucleated Red Blood Cells # Platelet Estimate DECREASED Giant Platelets 3 H Polychromasia 1+ Spherocytes 1+ Sodium Level 140 Potassium Level 3.6 Chloride Level 113 H Carbon Dioxide 21 Level Anion Gap 6 Blood Urea 10 Nitrogen Creatinine 1.11 H Est Glomerular 56 L Filtrat Rate mL/min Glucose Level 140 Calcium Level 7.5 L Phosphorus Level 4.5 Magnesium Level 1.8 Bedside Glucose 129 128 Blood Gas Specimen Blood arterial Source Arterial Blood 02/08/2019 6:20:39 Date Drawn AM Arterial Blood pH 7.256 *L (Temp corrected) Arterial Blood 38.0 pCO2 (Temp correct) Arterial Blood pO2 74.0 L (Temp corrected) Arterial Blood 16.5 L HCO3 Arterial Blood -9.9 L Base Excess Arterial Blood 94.6 L Oxygen Saturation Cristino Test ACCEPTAB Arterial Blood Gas Right Radial Puncture Site Arterial 0.5 Blood Carboxyhemog lobin Arterial Blood 0.3 Methemoglobin Blood Gas A-a O2 601.0 H Differential Oxyhemoglobin 93.8 Percent Blood Gas 37.0 Temperature Blood Gas 26.0 Respiration Rate Blood Gas Actual 26 Respiration Rate Blood Gas Modality VENT - AC FiO2 100.0 Blood Gas Tidal 550.0 Volume Blood Gas Low PEEP 12.0 Setting Blood Gas Critical Ilan VALDES MD Value Read Back Blood Gas Notified MA Whom Blood Gas Notified 02/08/2019 6:38:27 Time AM Medications Medication Current Medications Norepinephrine 250 ml @ 1.875 mls/ hr TITRATE IV Last administered on 02/08/19at 08:33; Admin Dose 41.25 MLS/HR; Start 02/04/19 at 12:00 Miscellaneous Information 1 ea NOTE XX ; Start 02/04/19 at 15:00 Glucose (Glutose) 15 gm Q15M PRN PO DECREASED GLUCOSE; Start 02/04/19 at 15:00 Glucose (Glutose) 22.5 gm Q15M PRN PO DECREASED GLUCOSE; Start 02/04/19 at 15:00 Dextrose (D50w Syringe) 25 ml Q15M PRN IV DECREASED GLUCOSE; Start 02/04/19 at 15:00 Dextrose (D50w Syringe) 50 ml Q15M PRN IV DECREASED GLUCOSE Last administered on 02/08/19 01:09; Admin Dose 50 ML; Start 02/04/19 at 15:00 Glucagon (Glucagen) 1 mg Q15M PRN IM DECREASED GLUCOSE; Start 02/04/19 at 15:00 Glucose (Glutose) 15 gm Q15M PRN BUCCAL DECREASED GLUCOSE; Start 02/04/19 at 15:00 Acetaminophen (Tylenol Supp) 650 mg Q4H PRN [place] TEMP > 37C; Start 02/04/19 at 17:30 Acetaminophen (Tylenol Supp) 500 mg Q6H [place] ; Start 02/05/19 at 17:30 Meperidine HCl (Demerol) 12.5 mg Q4H PRN IV POST OPERATIVE SHIVERING; Start 02/04/19 at 17:30 Meperidine HCl (Demerol) 25 mg Q4H PRN IV POST OPERATIVE SHIVERING; Start 02/04/19 at 17:30 Eye Lubricant (Akwa Oint) 1 applic Q6 BOTH EYES Last administered on 02/08/19 11:48; Admin Dose 1 APPLIC; Start 02/04/19 at 18:00 Eye Lubricant (Artificial Tears Oph) 2 drop Q6 BOTH EYES Last administered on 02/08/19 11:34; Admin Dose 2 DROP; Start 02/04/19 at 18:00 Midazolam HCl 50 ml @ 1 mls/hr TITRATE IV Last administered on 02/05/19 10:16; Admin Dose 4 MLS/HR; Start 02/04/19 at 22:30 Diagnostic Test (Pha) (Accu-Chek) 1 ea Q4 XX Last administered on 02/08/19 08:34; Admin Dose 1 EA; Start 02/05/19 at 00:00 Phenylephrine HCl 40 mg/Dextrose 250 ml @ 37.5 mls/hr TITRATE IV Last administered on 02/08/19 05:44; Admin Dose 7.5 MLS/HR; Start 02/05/19 at 00:30 Levetiracetam 100 ml @ 400 mls/hr Q12 IVPB Last administered on 02/08/19 08:29; Admin Dose 400 MLS/HR; Start 02/05/19 at 09:00 Piperacillin Sod/ Tazobactam Sod 100 ml @ 200 mls/hr Q8 IVPB Last administered on 02/08/19 05:31; Admin Dose 200 MLS/HR; Start 02/05/19 at 09:30 Nimodipine (Nimotop) 60 mg Q4 NGT Last administered on 02/08/19 08:30; Admin Dose 60 MG; Start 02/05/19 at 21:00 Acetaminophen (Tylenol Liquid) 650 mg Q4H PRN NGT TEMP > 37C; Start 02/07/19 at 09:30 Acetaminophen (Tylenol Liquid) 500 mg Q6 NGT Last administered on 02/08/19 05:31; Admin Dose 500 MG; Start 02/07/19 at 12:00 Sodium Chloride 1,000 ml @ 50 mls/hr Q20H IV Last administered on 02/08/19at 07:24; Admin Dose 50 MLS/HR; Start 02/08/19 at 08:00; Status Hold Sodium Bicarbonate 100 meq/Sodium Chloride 1,000 ml @ 75 mls/hr [id number] IV Last administered on 02/08/19 08:29; Admin Dose 75 MLS/HR; Start 02/08/19 at 09:00 JOSE VALDES February 08, 2019 12:13
--- NOTE | 2019-02-08 14:54 | CONS ---
Consult Date/Type/Reason Admit Date/Time Feb 04, 2019 at 13:52 Initial Consult Date 02/05/19 Type of Consultation: cv Requesting Provider: GUERO WILLOUGHBY Date/Time of Note DATE: 02/08/19 TIME: 14:53 Subjective cardiology follow up note/ critical care follow up note S; d/w staff and tele reviewed. pt remains in NSR d/w family members at bedisde she is still on levophed and neosyn drip in ICU intubated and nonresponsve O: General: Status with intubation on the vent in ICU HEENT: NC/AT. pupils are dilated and fixed. no corneal reflex NECK: no stridor. CV: RRR. systolic murmur; no gallop or rubs. PULM: no wheezing or rhonchi. GI: SOFT, NT, ND, no rebound or guarding Extremity: trace B/L LE edema. no clubbing. neuro: Nonresponsive Psych: calm rectal: deferred : normal EKG in February 05 2 AM shows sinus tachycardia. Nonspecific diffuse T wave abnormalities. Echocardiogram done 02/04/2019 which was personally reviewed again shows: Normal left ventricular systolic function. Normal left ventricular cavity size. Mild concentric left ventricular hypertrophy. Severe global left ventricular systolic dysfunction. Ejection fraction is visually estimated at 30-35 %. Abnormal Diastolic Function. These segments of the LV are hypokinetic mid anterior segment, apical anterior segment, inferolateral mid segment, apical lateral segment, anterolateral mid segment, inferior mid segment, inferior apex segment, inferoseptum mid segment, anteroseptum mid segment and apical septum. The left atrium is normal in size. Normal appearance and function of the mitral valve with trace physiologic regurgitation. Normal appearance of the aortic valve. No significant aortic stenosis or insufficiency. Normal appearance of the tricuspid valve. Estimated peak PA systolic pressure 41 mmHg. There is trace tricuspid regurgitation. CXR 02/06: New NG tube within the stomach Decreasing bilateral upper lobe and lower lobe infiltrates. Objective Vitals Vital Signs Date Temp Pulse Resp B/P (MAP) Pulse Ox O2 O2 Flow FiO2 Time Delivery Rate 02/08/19 97 26 97/53 (68) 98 Mechanical 14:30 Ventilator 02/08/19 99.9 12:00 02/08/19 100 11:45 Intake and Output 02/07/19 02/07/19 02/08/19 1414:59 22:59 06:59 IntakeIntake Total 1577.55 ml 1112.50 ml 983.75 ml OutputOutput Total 970 ml 625 ml 320 ml BalanceBalance 607.55 ml 487.50 ml 663.75 ml Results/Medications Result Diagram: 02/08/19 0445 02/08/19 0445 Results 24 hrs Laboratory Tests Test 02/07/19 16:50 02/07/19 21:07 02/08/19 01:32 02/08/19 04:45 Bedside Glucose 119 113 229 H White Blood Count 7.8 Red Blood Count 4.33 Hemoglobin 12.6 Hematocrit 38.7 Mean Corpuscular 89.4 Volume Mean Corpuscular 29.1 Hemoglobin Mean Corpuscular 32.6 Hemoglobin Concent Red Cell 15.1 H Distribution Width Platelet Count 63 #L Mean Platelet 10.8 H Volume Immature 0.500 H Granulocytes % Neutrophils % Segmented 66 Neutrophils % (Manual) Band Neutrophils % 14 H (Manual) Lymphocytes % Lymphocytes % 12 L (Manual) Reactive 2 H Lymphocytes % (Manual) Monocytes % Monocytes % 1 (Manual) Eosinophils % Eosinophils % 4 (Manual) Basophils % Basophils % 1 (Manual) Nucleated Red 1 H Blood Cells % Immature 0.040 H Granulocytes # Neutrophils # Neutrophils # 5.2 (Manual) Band Neutrophils # 1.0 H Lymphocytes 0.9 (Manual) Lymphocytes # Reactive 0.1 H Lymphocytes # Monocytes # Monocytes # 0.0 L (Manual) Eosinophils # Basophils # Basophils # 0.0 (Manual) Nucleated Red Blood Cells # Platelet Estimate DECREASED Giant Platelets 3 H Polychromasia 1+ Spherocytes 1+ Sodium Level 140 Potassium Level 3.6 Chloride Level 113 H Carbon Dioxide 21 Level Anion Gap 6 Blood Urea 10 Nitrogen Creatinine 1.11 H Est Glomerular 56 L Filtrat Rate mL/min Glucose Level 140 Calcium Level 7.5 L Phosphorus Level 4.5 Magnesium Level 1.8 Test 02/08/19 05:34 02/08/19 06:02 02/08/19 08:35 Bedside Glucose 129 128 Blood Gas Specimen Blood arterial Source Arterial Blood 02/08/2019 6:20:39 Date Drawn AM Arterial Blood pH 7.256 *L (Temp corrected) Arterial Blood 38.0 pCO2 (Temp correct) Arterial Blood pO2 74.0 L (Temp corrected) Arterial Blood 16.5 L HCO3 Arterial Blood -9.9 L Base Excess Arterial Blood 94.6 L Oxygen Saturation Cristino Test ACCEPTAB Arterial Blood Gas Right Radial Puncture Site Arterial 0.5 Blood Carboxyhemog lobin Arterial Blood 0.3 Methemoglobin Blood Gas A-a O2 601.0 H Differential Oxyhemoglobin 93.8 Percent Blood Gas 37.0 Temperature Blood Gas 26.0 Respiration Rate Blood Gas Actual 26 Respiration Rate Blood Gas Modality VENT - AC FiO2 100.0 Blood Gas Tidal 550.0 Volume Blood Gas Low PEEP 12.0 Setting Blood Gas Critical Ilan VALDES MD Value Read Back Blood Gas Notified [place] Whom Blood Gas Notified 02/08/2019 6:38:27 Time AM Home Meds Reported Medications Methyldopa* (Aldomet*) 500 Mg Tab, 500 MG PO TID, #90 TAB 02/04/19 Discontinued Reported Medications [Denies Meds] No Conflict Check 07/05/10 Medications Current Medications Norepinephrine 250 ml @ 1.875 mls/ hr TITRATE IV Last administered on 02/08/19at 14:31; Admin Dose 41.25 MLS/HR; Start 02/04/19 at 12:00 Miscellaneous Information 1 ea NOTE XX ; Start 02/04/19 at 15:00 Glucose (Glutose) 15 gm Q15M PRN PO DECREASED GLUCOSE; Start 02/04/19 at 15:00 Glucose (Glutose) 22.5 gm Q15M PRN PO DECREASED GLUCOSE; Start 02/04/19 at 15:00 Dextrose (D50w Syringe) 25 ml Q15M PRN IV DECREASED GLUCOSE; Start 02/04/19 at 15:00 Dextrose (D50w Syringe) 50 ml Q15M PRN IV DECREASED GLUCOSE Last administered on 02/08/19at 01:09; Admin Dose 50 ML; Start 02/04/19 at 15:00 Glucagon (Glucagen) 1 mg Q15M PRN IM DECREASED GLUCOSE; Start 02/04/19 at 15:00 Glucose (Glutose) 15 gm Q15M PRN BUCCAL DECREASED GLUCOSE; Start 02/04/19 at 15:00 Acetaminophen (Tylenol Supp) 650 mg Q4H PRN [place] TEMP > 37C; Start 02/04/19 at 17:30 Acetaminophen (Tylenol Supp) 500 mg Q6H [place] ; Start 02/05/19 at 17:30 Meperidine HCl (Demerol) 12.5 mg Q4H PRN IV POST OPERATIVE SHIVERING; Start 02/04/19 at 17:30 Meperidine HCl (Demerol) 25 mg Q4H PRN IV POST OPERATIVE SHIVERING; Start 02/04/19 at 17:30 Eye Lubricant (Akwa Oint) 1 applic Q6 BOTH EYES Last administered on 02/08/19 11:48; Admin Dose 1 APPLIC; Start 02/04/19 at 18:00 Eye Lubricant (Artificial Tears Oph) 2 drop Q6 BOTH EYES Last administered on 02/08/19 11:34; Admin Dose 2 DROP; Start 02/04/19 at 18:00 Midazolam HCl 50 ml @ 1 mls/hr TITRATE IV Last administered on 02/05/19 10:16; Admin Dose 4 MLS/HR; Start 02/04/19 at 22:30 Diagnostic Test (Pha) (Accu-Chek) 1 ea Q4 XX Last administered on 02/08/19 12:48; Admin Dose 1 EA; Start 02/05/19 at 00:00 Phenylephrine HCl 40 mg/Dextrose 250 ml @ 37.5 mls/hr TITRATE IV Last administered on 02/08/19 05:44; Admin Dose 7.5 MLS/HR; Start 02/05/19 at 00:30 Levetiracetam 100 ml @ 400 mls/hr Q12 IVPB Last administered on 02/08/19 08:29; Admin Dose 400 MLS/HR; Start 02/05/19 at 09:00 Piperacillin Sod/ Tazobactam Sod 100 ml @ 200 mls/hr Q8 IVPB Last administered on 02/08/19 05:31; Admin Dose 200 MLS/HR; Start 02/05/19 at 09:30 Nimodipine (Nimotop) 60 mg Q4 NGT Last administered on 02/08/19 08:30; Admin Dose 60 MG; Start 02/05/19 at 21:00 Acetaminophen (Tylenol Liquid) 650 mg Q4H PRN NGT TEMP > 37C; Start 02/07/19 at 09:30 Acetaminophen (Tylenol Liquid) 500 mg Q6 NGT Last administered on 02/08/19 05:31; Admin Dose 500 MG; Start 02/07/19 at 12:00 Sodium Chloride 1,000 ml @ 50 mls/hr Q20H IV Last administered on 02/08/19at 07:24; Admin Dose 50 MLS/HR; Start 02/08/19 at 08:00; Status Hold Sodium Bicarbonate 100 meq/Sodium Chloride 1,000 ml @ 75 mls/hr [id number] IV Last administered on 02/08/19at 08:29; Admin Dose 75 MLS/HR; Start 02/08/19 at 09:00 Assessment/Plan Hospital Course (Demo Recall) 1. Intracranial hemorrhage/Subarachnoid hemorrhage 2. Hypoxic respiratory failure 3. Cardiomyopathy probably stress-induced versus others 4. Mildly abnormal troponin probably related to above 5. Severe encephalopathy due to above 6. Seizure due to above 7. History of hypertension currently hypotensive 8. Shock secondary to above Recommendation: Continue the vent support. Continue with Levophed and gema to maintain the blood pressure for now No aspirin or anticoagulant will be given given her intracranial bleed obviously No neurological improvement has been seen her family is considering terminal extubation Continue with ICU care until pt is terminally extubated. More than 33 minutes critical care time was spent renal management is critically ill patient excluding procedures Thank you for his referral. We will continue to follow along with you FAITH PAT MD [facility] FAITH PAT MD February 08, 2019 14:54
[2019-02-09] VITALS (10 sets, daily range): BP systolic 97–103; BP diastolic 52–57; PULSE 0–110; RESP 26
[2019-02-09] MEDS: ACETAMINOPHEN 650MG/20.3ML CUP NGT SCH
[2019-02-09] MEDS ORDERED: morphine (DRIP) 100 MG/100 ML 100 ML IV SCH (00:30)
--- NOTE | 2019-02-09 00:30 | EN ---
Date/Time of Note Date/Time of Note DATE: 02/09/19 TIME: 00:28 Event Note Medicine Medicine Event Note Some family members arrived for the first time, including patient's aunt and friend. I have updated them about patient's condition. We discussed about the EEG finding and her physical examination findings of brain . At this time, will go ahead and do terminal extubation per family's request. . ELOISE HULL MD February 09, 2019 00:30
--- NOTE | 2019-02-09 02:09 | EN ---
Date/Time of Note Date/Time of Note DATE: 02/09/19 TIME: 02:06 Event Note Medicine Medicine Event Note Patient was terminally extubated and pressors were discontinued a little while ago per family request(see my note entered an hour and half ago). Patient went into asystole 5 minutes after terminal extubation. On my physical examination, patient had no pulse, unresponsive to painful stimuli, pupils not reactive to light, no corneal or gag reflex. Patient was pronounced at 1:58 AM on 02/09/2019. Family was at the bedside at the time of terminal extubation. . ELOISE HULL MD February 09, 2019 02:08
--- NOTE | 2019-02-09 07:57 | DES ---
Date/Time of Note Date/Time of Note DATE: 02/09/19 TIME: 07:48 Discharge/ Summary Admission/Discharge Info Admit Date/Time Feb 04, 2019 at 13:52 Date/Time Patient was pronounced at 1:58 AM on 02/09/2019 . Final Diagnosis 1. Acute encephalopathy likely secondary to #2 -EEG and physical exam consistent with brain 2. 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 No evidence of aneurysm. 3. Acute respiratory failure secondary to the above, now ventilator dependent with aspiration pneumonitis 4. Status post cardiac arrest with ROSC -s/p TH and subsequent rewarming 5. Elevated troponins rule out NSTEMI likely secondary to cardiac compressions 6. Systemic inflammatory response syndrome with severe lactic acidosis secondary to the above: 7. Hyperglycemia likely 2/2 shock, a1c 4.9 8. Hypophosphatemia 9. Systemic shock likely cardiogenic related to cardiac arrest currently on pressor support 10. New-onset seizure activity x1, no further seizures 11. Chronic hypertension, currently in shock 12. Acute renal insufficiency likely secondary to hypoperfusion 13. Acute hypernatremia 2/2 DI now on DDAVP 14. Metabolic acidosis 15. Mild transaminitis . Preliminary Cause of Acute Sponataneous diffuse subarachnoid hemorrhage with intraventricular hemorrhage without hydrocephalus . Admit History 33-year-old female who has been complaining of headaches for the last 3 days who went to sleep earlier today by her family and was found to have new onset seizures. EMS was called on by the time EMS arrived to the home, patient was unresponsive with PEA. She was resuscitated via ACLS with return of spontaneous circulation. Airway was placed at the scene by EMS for patient May being endotracheally intubated in the intensive in the emergency room. Patient is also requiring pressor support at this time. A CT scan of the brain is showing subarachnoid hemorrhage. Patient does not have a history of substance use as far as the family knows but she does have a history of alcohol use occasionally. Hyperglycemia is also noted with there is no history of diabetes mellitus. Patient does have 3 small children at home. She does have a history of high blood pressure she does have a history of high blood pressure . Hospital Course 33-year-old female with a prior history of headaches for the last 3 days in the occipital region per report who was brought in after being found unresponsive at home, also with seizure and frothing at the mouth. She suffered a cardiac arrest, was resuscitated with return of spontaneous circulation. She was brought to the emergency room with a CT scan of the brain confirmed the presence of acute spontaneous subarachnoid hemorrhage with intraventricular hemorrhage. The neurosurgeon determined she was nonsurgical. She was admitted to the intensive care unit after being endotracheally intubated and put on ventilator support. She was started on targeted hypothermia after obtaining clearance from neurology, neurosurgery and pulmonary. It was felt that the benefits may outweigh the risks in this patient. Unfortunately, despite aggressive interventions, patient never recovered. Early in her hospitalization, there was concern clinically for brain . This was eventually confirmed after multiple evaluations. Family was notified, they chose to terminal extubation. Per reports, patient not too long after being extubated. . Pending Labs/Cultures Laboratory Tests Test 02/08/19 08:35 02/08/19 21:29 Bedside Glucose 128 mg/dL (70-220) 98 mg/dL (70-220) GUERO WILLOUGHBY February 09, 2019 07:57
== END 2019-02-09 01:58 | disposition expired | DRG 64 ==
LOC: E/R 11:27 → EDBD 11:27 → ICU 13:52 → EDBD 13:52 → ICU 15:40
PROVIDERS: ADMIT Family Medicine; ATTEND Family Medicine
PROC: 0BH17EZ Insertion of Endotracheal Airway into Trachea, Via Natural or Artificial Opening (ICD-10-PCS; principal; 2019-02-04)
PROC: 5A1955Z Respiratory Ventilation, Greater than 96 Consecutive Hours (ICD-10-PCS; 2019-02-04)
PROC: 5A12012 Performance of Cardiac Output, Single, Manual (ICD-10-PCS; 2019-02-04)
DX: I60.5 Nontraumatic subarachnoid hemorrhage from vertebral artery (principal); J96.01 Acute respiratory failure with hypoxia; J69.0 Pneumonitis due to inhalation of food and vomit; R65.11 Systemic inflammatory response syndrome (SIRS) of non-infectious origin with acute organ dysfunction; G93.6 Cerebral edema; G93.40 Encephalopathy, unspecified; I42.9 Cardiomyopathy, unspecified; E23.2 Diabetes insipidus; Z99.11 Dependence on respirator [ventilator] status; R57.0 Cardiogenic shock; R56.9 Unspecified convulsions; D69.6 Thrombocytopenia, unspecified; E83.39 Other disorders of phosphorus metabolism; I10 Essential (primary) hypertension; N28.9 Disorder of kidney and ureter, unspecified; D64.9 Anemia, unspecified
CPT/HCPCS: 31500; 36415; 36600; 70450; 70496; 70498; 70551; 71045; 80048; 80053; 80307; 81001; 81003; 81025; 82043; 82150; 82550; 82553; 82803; 82962; 83036; 83605; 83690; 83735; 83935; 84100; 84155; 84300; 84484; 84702; 84703; 85025; 85335; 85378; 85384; 85610; 85730; 87081; 87086; 93005; 93306; 94002; 94003; 94770; 96374; 96375; J0171; J0696; J1815; J1953; J2250; J2270; J2370; J2543; J3010; J3475; J3480; J7030; J7042; J7050; J7070; Q9967